=== PATIENT | female | born 1970 | race Caucasian/White ===

== ENCOUNTER → 2016-11-28 | Day surgery (SDC) | payer BC ==
[~2016-11-28] MED LIST: ALPRAZolam 0.25 MG TAB ONE; BACITRACIN OINT 1 EACH PACKET TOPICAL ONE; LIDOCAINE 1% INJ 10MG/ML (20 ML MDV) ONE; LIDOCAINE 1%-EPI 1:100,000 20 ML VIAL ONE; SODIUM BICARB 4% 5 ML VIAL (0.48 MEQ/ML) ONE
--- NOTE | 2016-11-28 14:26 | USB ---
EXAMINATION TYPE: US biopsy breast VAD LT, MG diagnostic mammo LT wo CAD DATE OF EXAM: 11/28/2016 2:13 PM CLINICAL HISTORY: R92.8 Abnormal Mammogram. Abnormal ultrasound. Palpable mass. TECHNIQUE: Ultrasound guided core biopsy of left breast with clip placement and follow-up two-view mammogram. COMPARISON: Outside mammogram and ultrasound November 16, 2016. FINDINGS: The procedure of ultrasound guided core biopsy was explained to the patient. Benefits, alternatives, and risks were discussed. An informed consent was then obtained. The patient was placed in supine positioning for imaging and for the procedure. Preprocedure imaging redemonstrated suspicious lobulated 2.8 x 2.4 x 2.3 cm heterogeneous hypoechoic solid mass at 2:00 position in the left breast. Scanning of axilla show some prominent but benign-appearing lymph nodes, no definitively abnormal lymph nodes were identified to warrant sampling. The overlying skin was prepped and draped in usual sterile fashion. Lidocaine buffered with bicarbonate was used as anesthetic into the skin. Lidocaine with epinephrine is used as anesthetic into the deeper tissue up to area of concern in the left breast. A avani was made with surgical scalpel. Under ultrasound guidance, a 12-gauge vacuum assisted biopsy gun device was used to obtain 4 core samples. Following this, a biopsy clip was left in lesion. The patient tolerated the procedure well without any immediate complication. The patient was kept in the radiology department for short stay after the procedure and then discharged home in stable condition. Postprocedure mammogram shows clip successfully deployed at area mammogram concern and palpable abnormality. IMPRESSION: Successful, uncomplicated ultrasound guided core biopsy of area of concern in the left breast, full pathology results to follow. High index of suspicion noted at time of procedure. Pathology Results: Malignant BREAST, LEFT, CORE BIOPSY: INVASIVE DUCTAL CARCINOMA. SEE SURGICAL PATHOLOGY CANCER CASE SUMMARY. Recommendation Surgical consult of the left breast. JOSÉ MIGUEL
== END ==
LOC: RADUSWWP 12:19
PROVIDERS: ATTEND Surgery
DX: D05.12 Intraductal carcinoma in situ of left breast (principal); R92.8 Other abnormal and inconclusive findings on diagnostic imaging of breast
CPT/HCPCS: 88305; 19083; G0206; A4648; J2001

== ENCOUNTER 2017-01-10 10:58 | Observation (INO) | payer BC ==
[2017-01-05 12:34] VITALS: BMI 29.2
[~2017-01-10 10:58] MED LIST changes: -ALPRAZolam 0.25 MG TAB ONE; +ALPRAZolam 0.5 MG TAB PO PRN; -BACITRACIN OINT 1 EACH PACKET TOPICAL ONE; +DEXAMETHASONE SOD PHOSPHATE 10 MG/ML 1 ML VIAL IV ONE; +HEPARIN SODIUM,PORCINE 5,000 UNIT/ML 1 ML VIAL SQ ONE; +HYDROmorphone 1 MG/ML 1 ML SYRINGE IVP PRN; -LIDOCAINE 1% INJ 10MG/ML (20 ML MDV) ONE; -LIDOCAINE 1%-EPI 1:100,000 20 ML VIAL ONE; +MIDAZOLAM 2 MG/2 ML VIAL IV PRN; +ONDANSETRON 4 MG/2 ML VIAL IVP ONE; +Pre Op ABX Message 1 EACH MISC MISCELLANE ONE; +SCOPOLAMINE 1.5MG/72HR PATCH TRANSDERM ONE; -SODIUM BICARB 4% 5 ML VIAL (0.48 MEQ/ML) ONE
[2017-01-10] MEDS ORDERED: LIDOCAINE 1% 20 ML VIAL (10MG/ML) FOR IV START INTRADERMA ONE (11:38)
[2017-01-10] MEDS: LACTATED RINGERS 1,000 ML IV SCH (11:45)
[2017-01-10] MEDS ORDERED: LIDOCAINE 1% INJ 10MG/ML (20 ML MDV) SQ ONE (12:07)
--- NOTE | 2017-01-10 12:48 | NM ---
EXAMINATION TYPE: NM sentinel node injection DATE OF EXAM: 01/10/2017 COMPARISON: NONE HISTORY: Breast cancer. TECHNIQUE AND FINDINGS: The procedure of sentinel lymph node injection was explained to the patient. The benefits, alternatives, and risks were discussed. An informed consent was then obtained. Overlying skin is cleaned with sterile alcohol. Lidocaine buffered with bicarbonate was used as anes thetic into the skin and subcutaneous tissue surrounding the nipple. Following this, 549 uCi Tc 99m Filtered Sulfur Colloid was injected into 4 equivalent doses at 12, 3, 6, and 9:00 position surroundi ng the left nipple intradermally. The injection sites were massaged by nuclear plant construction worker for 10 minutes after injection. T he patient tolerated the procedure well without any immediate complication. The patient was kept in the radiology department for short stay after the procedure and then taken to surgery for surgical pr ocedure what is presumed intraoperative gamma probe will be used for sentinel lymph node detection. IMPRESSION: Left breast radiotracer injection for sentinel node localization as above.
[2017-01-10] MEDS ORDERED: HEPARIN SODIUM,PORCINE 5,000 UNIT/ML 1 ML VIAL SQ ONE (17:07)
[2017-01-10] MEDS ORDERED: METHYLENE BLUE 50 MG/10 ML AMPUL MISCELLANE ONE (17:42)
[2017-01-10] MEDS ORDERED: ONDANSETRON 4 MG/2 ML VIAL ONE (17:48)
[2017-01-10] MEDS ORDERED: KETOROLAC 30 MG/ML 1 ML VIAL ONE (17:48)
[2017-01-10] MEDS ORDERED: fentaNYL (PF) 50 MCG/ML 2 ML AMP ONE (17:48)
[2017-01-10] MEDS ORDERED: LIDOCAINE 1% INJ 10MG/ML (20 ML MDV) ONE (17:48)
[2017-01-10] MEDS ORDERED: PROPOFOL 10 MG/ML 20 ML VIAL IV ONE (17:48)
[2017-01-10] MEDS ORDERED: MIDAZOLAM 2 MG/2 ML VIAL ONE (17:48)
[2017-01-10] MEDS ORDERED: HYDROmorphone (PF) 1 MG/ML ONE (17:48)
[2017-01-10] MEDS ORDERED: WATER IRRIGATION ONE ×2 (17:50)
[2017-01-10] MEDS ORDERED: DEXTROSE 5% IRRIGATION ONE ×2 (17:50)
[2017-01-10] MEDS ORDERED: METHYLENE BLUE IRRIGATION ONE ×2 (17:50)
[2017-01-10] MEDS ORDERED: METHYLENE BLUE 50 MG/10 ML AMPUL INJ ONE (18:23)
[2017-01-10] MEDS ORDERED: ONDANSETRON 4 MG/2 ML VIAL IVP PRN (20:16)
[2017-01-10] MEDS ORDERED: NALOXONE 0.4 MG/ML 1 ML VIAL IV PRN (20:16)
--- NOTE | 2017-01-10 20:16 | P.OP ---
Date of Procedure: 01/10/17 Preoperative Diagnosis: Left breast cancer Postoperative Diagnosis: Same Procedure(s) Performed: Methylene blue injection for axillary lymph node mapping, left breast lumpectomy , sentinel node biopsy, followed by axillary node dissection Implants: Anesthesia: RACHELA Surgeon: Didi Garrett Estimated Blood Loss (ml): 50 IV fluids (ml): 500 Pathology: other (Lumpectomy specimen, 3 sentinel nodes, axillary contents) Condition: stable Disposition: PACU Indications for Procedure: Left breast cancer Operative Findings: Firm mass left breast upper outer quadrant area Description of Procedure: Patient was taken to the operating room and following induction of general anesthesia the periareolar area was prepped using alcohol 5 mL of half-strength methylene blue was injected into the periareolar area and the breast was massaged. The breast and axilla were then prepped and draped in a sterile fashion. An axillary incision was made and carried down to the axillary tissue. The pectoralis minor muscle was identified and followed superiorly towards the axillary vein which time 3 axillary sentinel nodes were identified. These were blue and radioactive and sent to pathology. It was felt that these were suspicious and a completion axillary dissection was performed. Pectoralis minor muscle was followed superiorly towards the axillary vein and the tissues were swept inferiorly being careful to identify and preserve the thoracodorsal and long thoracic nerves. We assured that hemostasis was attained in the axilla. The dissection of the left for the lumpectomy was performed using the lighted retractors and developed pain in the anterior flap just below the skin. This was followed to the area of the needle and the then followed posteriorly to the pectoralis major muscle. The medial dissection was carried to a cavity where prior implant had been placed in the lateral dissection was contiguous with the axillary dissection. Superior and inferior dissection were performed well away from the area of palpable abnormality. After assured that hemostasis was attained the wound was well irrigated. Titanium clips were placed in the lumpectomy area. A Marv-Adams drain was placed. The deep tissues were closed using 3-0 Vicryl suture followed by closure of the skin with 4-0 Monocryl. The patient tolerated procedure in stable condition. All instrument and sponge counts were correct at the end of the case.
[2017-01-10] MEDS: DEXTROSE 5%-0.45% NACL 1,000 ML IV SCH (21:48)
[2017-01-10] MEDS: FAMOTIDINE 20 MG TAB PO SCH (21:57)
[2017-01-10] MEDS: HYDROmorphone 1 MG/ML 1 ML SYRINGE IV PRN (23:09)
[2017-01-10] MEDS: HEPARIN SODIUM,PORCINE 5,000 UNIT/ML 1 ML VIAL SQ SCH (23:09)
[2017-01-11] MEDS: HYDROmorphone 1 MG/ML 1 ML SYRINGE IV PRN ×5 (06:01→20:43)
[2017-01-11] MEDS: DEXTROSE 5%-0.45% NACL 1,000 ML IV SCH (06:02)
[2017-01-11] MEDS: LACTATED RINGERS 1,000 ML IV SCH (06:12)
[2017-01-11 06:52] LABS: Basophils % (A) 0 %; CH 32.3; CHCM 32.7; Eosinophils % (A) 0 %; HCT 39.4 % (34.0-46.0); HDW 2.29; Luc # (Auto) 0.14; Luc % (Auto) 2; Lymphocytes # (A) 0.8 k/uL (1.0-4.8); Lymphocytes % (A) 11 %; MCH 32.8 pg (25.0-35.0); MCV 99.2 fL (80.0-100.0); Mean Platelet Volume 7.5; Monocytes # (A) 0.4 k/uL (0-1.0); Monocytes % (A) 6 %; Neutrophils # (A) 5.7 k/uL (1.3-7.7); Neutrophils % (A) 81 %; RBC 3.97 m/uL (3.80-5.40)
--- NOTE | 2017-01-11 08:08 | MM ---
EXAMINATION TYPE: MG pre op needle loc LT DATE OF EXAM: 01/10/2017 COMPARISON: Previous mammogram dated 11/28/2016 CLINICAL HISTORY: Breast cancer. TECHNIQUE: Needle localization with wire placement and surgical excision of area of concern in the left breast. FINDINGS: The procedure of needle localization with wire placement and than surgical excision was explained to the patient. Benefits, alternatives, and risks were discussed. An informed consent was then obtained. The shortest pathway for procedure was chosen. Shortest pathway was medial to lateral approach. The overlying skin was prepped and draped in usual sterile fashion. 1% Xylocaine was used as anesthetic into the skin and subcutaneous tissue up to the level of area of concern. A 5 cm needle was used. It was placed via a medial to lateral approach under mammographic guidance. Subsequent 90 degrees mammogram show the needle to be in satisfactory position relative to the targeted area. At this point, wire was placed and the needle was withdrawn. The wire was fixed to patient's skin. Images were marked for surgeon. The patient tolerated the procedure well without any immediate complication. The patient was kept in the radiology department for short stay after the procedure and then taken to surgery for surgical excision. The biopsy clip and wire are identified in specimen mammogram. The patient was kept in hospital for short stay after the procedure and then discharged home in stable condition. IMPRESSION: Successful, uncomplicated needle localization with wire placement and surgical excision of a biopsy clip in the left breast, full pathology results to follow. Pathology Results: Malignant A. SENTINEL LYMPH NODE #1, BIOPSY: FIBROADIPOSE TISSUE WITH FOCAL CHRONIC INFLAMMATION, NEGATIVE FOR MALIGNANCY. CK7 AND SOUTH IMMUNOPEROXIDASE STAINS ARE CONFIRMATORY (CONTROLS APPROPRIATE). NO LYMPH NODE IS IDENTIFIED. B. SENTINEL LYMPH NODE #2, BIOPSY: LYMPH NODE POSITIVE FOR METASTASIS. SIZE OF LARGEST METASTATIC DEPOSIT MEASURES 6MM. C. SENTINEL LYMPH NODE #3, BIOPSY: TWO LYMPH NODES POSITIVE FOR METASTASIS. SIZE OF LARGEST METASTATIC DEPOSIT MEASURES 9MM. EXTRANODAL EXTENSION IS PRESENT. D. BREAST, LEFT, LUMPECTOMY: INVASIVE DUCTAL CARCINOMA INVOLVING THE ANTERIOR RESECTION MARGIN AND CLOSELY APPROACHING THE MEDIAL AND SUPERIOR MARGINS. SEE SURGICAL PATHOLOGY CANCER CASE SUMMARY. E. LEFT AXILLARY CONTENTS: FOUR LYMPH NODES, ONE POSITIVE FOR METASTASIS AND ONE NODE POSITIVE FOR ISOLATED TUMOR CELLS. Recommendation Appropriate oncologic management. MTDD
[2017-01-11] MEDS: HEPARIN SODIUM,PORCINE 5,000 UNIT/ML 1 ML VIAL SQ SCH ×2 (10:07→19:19)
[2017-01-11] MEDS: FAMOTIDINE 20 MG TAB PO SCH ×2 (10:07→21:59)
--- NOTE | 2017-01-11 11:38 | P.PN ---
Subjective 46 rolled female being seen and examined this morning. Patient is sitting up in bed taking a diet. Patient is postop January 10 methane blue injection for axillary mapping left breast lumpectomy, sentinel node biopsy followed by axillary node dissection with Marv-Adams drain placed nursing reports the patient Marv-Adams drain put out 120 mL with clots noted during the night. Currently the Marv-Adams drain has approximately 20 mL dark bloody drainage noted the hemoglobin this morning is 13. The dressing to the right axillary dry slight surgical tenderness noted lymph node sentinel biopsy path report is pending Objective - Vital Signs Vital signs: Vital Signs Temp 98.3 F 01/11/17 08:50 Pulse 101 H 01/11/17 08:50 Resp 16 01/11/17 08:50 BP 127/78 01/11/17 08:50 Pulse Ox 97 01/11/17 08:50 Intake & Output 01/10/17 01/11/17 01/11/17 18:59 06:59 18:59 Intake Total 900 200 Output Total 50 220 600 Balance 850 -20 -600 Weight 77.111 kg Intake: IV 900 100 Oral 100 Output: Drainage 120 Left Breast 120 Urine 100 600 Estimated Blood Loss 50 Other: Voiding Method Toilet Toilet - Exam Physical exam 46-year-old female sitting up in bed taking a diet pleasant cooperative oriented 3 states pain medication effective for pain control Chest right axillary dressing dry Marv-Adams drain in place Lungs essentially clear adequate air movement on room air Heart S1-S2 audible and regular no murmur noted Abdomen soft nontender reports no nausea vomiting no distention noted Extremities no edema noted - Labs CBC & Chem 7: 01/11/17 06:33 Labs: Abnormal Lab Results - Last 24 Hours (Table) 01/11/17 Range/Units 06:33 Lymphocytes # 0.8 L (1.0-4.8) k/uL Assessment and Plan Plan: Impression Firm mass left breast upper outer quadrant suspect due to left breast cancer Status post January 10 Left breast lumpectomy 3 sentinel nodes axillary biopsied path report pending Status post January 10 methane blue injection for axillary lymph node mapping, left breast lumpectomy, sentinel node biopsy followed by axillary node dissection for left breast cancer Plan repeat a hemoglobin now Pain control Postop surgical care Marv-Adams drained care as ordered Resume home meds as appropriate Further or conditions pending The above dictated assessment and findings were discussed with dr Caroline Maldonado Impression and the plan of care have been dictated as directed. Marguerite Galaviz nurse practitioner acting as a scribe for Melvi
[2017-01-11 13:05] LABS: Basophils % (A) 0 %; CH 32.5; CHCM 32.5; Eosinophils % (A) 0 %; HCT 38.3 % (34.0-46.0); HDW 2.28; HGB 12.4 gm/dL (11.4-16.0); Luc # (Auto) 0.19; Luc % (Auto) 3; Lymphocytes # (A) 0.9 k/uL (1.0-4.8); Lymphocytes % (A) 12 %; MCH 32.4 pg (25.0-35.0); MCHC 32.3 g/dL (31.0-37.0); MCV 100.4 fL (80.0-100.0); Mean Platelet Volume 7.6; Monocytes # (A) 0.4 k/uL (0-1.0); Monocytes % (A) 6 %; Neutrophils # (A) 5.9 k/uL (1.3-7.7); Neutrophils % (A) 80 %; RBC 3.82 m/uL (3.80-5.40); WBC 7.3 k/uL (3.8-10.6); WBC (Perox) 8.22
[2017-01-11] MEDS ORDERED: HYDROcodone/APAP 5-325MG 1 EACH TAB PO PRN (20:11)
[2017-01-11] MEDS: HYDROcodone/APAP 5-325MG 1 EACH TAB PO PRN (21:58)
[2017-01-12] MEDS: HYDROcodone/APAP 5-325MG 1 EACH TAB PO PRN (02:18)
[2017-01-12 02:20] VITALS: RESP 16
[2017-01-12] MEDS: HEPARIN SODIUM,PORCINE 5,000 UNIT/ML 1 ML VIAL SQ SCH ×2 (06:51→08:53)
[2017-01-12 07:42] VITALS: BP 124/82; PULSE 90; TEMP 97.7
[2017-01-12 08:44] LABS: Basophils % (A) 0 %; CH 32.5; CHCM 32.5; Eosinophils # (A) 0.1 k/uL (0-0.7); Eosinophils % (A) 2 %; HCT 38.5 % (34.0-46.0); HDW 2.36; HGB 12.3 gm/dL (11.4-16.0); Luc # (Auto) 0.22; Luc % (Auto) 4; Lymphocytes # (A) 1.4 k/uL (1.0-4.8); Lymphocytes % (A) 24 %; MCH 32.1 pg (25.0-35.0); MCHC 31.9 g/dL (31.0-37.0); MCV 100.5 fL (80.0-100.0); Mean Platelet Volume 8.1; Monocytes # (A) 0.4 k/uL (0-1.0); Monocytes % (A) 7 %; Neutrophils # (A) 3.7 k/uL (1.3-7.7); Neutrophils % (A) 63 %; RBC 3.83 m/uL (3.80-5.40); RDW 13.3 % (11.5-15.5); WBC 5.9 k/uL (3.8-10.6); WBC (Perox) 6.36
[2017-01-12] MEDS: FAMOTIDINE 20 MG TAB PO SCH (08:53)
[2017-01-12] MEDS ORDERED: VENLAFAXINE HCL 75 MG TAB PO SCH (09:00)
--- NOTE | 2017-01-12 10:51 | P.DS ---
Providers Date of admission: 01/11/17 20:07 Expected date of discharge: 01/12/17 Attending physician: Didi Garrett Primary care physician: Stated None Hospital Course: A 46-year-old female presented on elective basis to undergo left breast lumpectomy for left breast cancer. The procedure was done on January 10 methane blue injection for axillary lymph node mapping, left breast lumpectomy, sentinel node biopsy followed by axillary node dissection for left breast cancer with a Marv-Adams drain was inserted postop no complications. On the day of discharge the hemoglobin 12.3. I count 5.9. The Marv-Adams drain on the day of discharge serous drainage in the bulb. Pain medication effective for pain control. on January 12 patient was felt to be hemodynamically stable and appropriate proceed with a discharge to home Impression discharge diagnosis Firm mass left breast upper outer quadrant suspect due to left breast cancer Status post January 10 Left breast lumpectomy for left breast cancer 3 sentinel nodes axillary biopsied path report pending Status post January 10 methane blue injection for axillary lymph node mapping, left breast lumpectomy, sentinel node biopsy followed by axillary node dissection for left breast cancer The above dictated assessment and findings were discussed with dr Caroline Maldonado Impression and the plan of care have been dictated as directed. Marguerite Galaviz nurse practitioner acting as a scribe for Melvi Plan - Discharge Summary New Discharge Prescriptions: New HYDROcodone/APAP 5-325MG [[place] 5-325] 2 each PO Q6HR PRN #30 tab PRN Reason: Pain Scale 7 To 10 Continue Venlafaxine HCl [Effexor] 75 mg PO DAILY Discharge Medication List Venlafaxine HCl [Effexor] 75 mg PO DAILY 01/05/17 [History] HYDROcodone/APAP 5-325MG [[place] 5-325] 2 each PO Q6HR PRN #30 tab 01/12/17 [Rx] Follow up Appointment(s)/Referral(s): Didi Garrett MD [STAFF PHYSICIAN] - 01/19/17 12:15 pm (You have an appointment with DR Garrett On , January 19, 2017 at 12:15 pm.) Patient Instructions/Handouts: Breast Lumpectomy (DC) Activity/Diet/Wound Care/Special Instructions: No heavy lifting, no driving, no pools or hot tubs. Notify Dr Garrett if you develop a fever, chills, bloody or infected looking drainage from your MARTÍN drain or incision, or if have any questions or concerns. Take your pain medicine as needed. Activity as tolerated, rest as needed. Keep your dressing clean and dry, may change daily and as needed. Keep piter wrap snug over chest. Discharge Disposition: HOME SELF-CARE
== END 2017-01-12 12:50 | disposition home or self-care (01) ==
LOC: OR 10:58 → 6PED 20:13 → OR 01-11 20:06 → 6PED 01-11 20:07
PROVIDERS: ADMIT Surgery; ATTEND Surgery
DX: C50.912 Malignant neoplasm of unspecified site of left female breast (principal); C77.3 Secondary and unspecified malignant neoplasm of axilla and upper limb lymph nodes; G89.18 Other acute postprocedural pain; Z17.0 Estrogen receptor positive status [ER+]; F41.9 Anxiety disorder, unspecified; J01.00 Acute maxillary sinusitis, unspecified; Z79.899 Other long term (current) drug therapy; Z87.891 Personal history of nicotine dependence; Z90.49 Acquired absence of other specified parts of digestive tract; Z92.89 Personal history of other medical treatment
CPT/HCPCS: 19302; 38900; 96361; 96372 ×2; 96374; 96376; 81025; 88305; 85025 ×2; 88342; 88307; 88341; 76098; 19281; 38792; G0378 ×2; A9541; J2250; J1644 ×3; J1100; J2405; J2001; J3010; J1885; J1170 ×2; J2704; Q9968

== ENCOUNTER → 2017-02-04 | Outpatient (CLI) | payer BC ==
--- NOTE | 2017-02-05 10:29 | PE ---
EXAMINATION TYPE: PET CT fusion skull to thigh DATE OF EXAM: 02/04/2017 COMPARISON: NONE Prior PET/CT: None HISTORY: Breast cancer TECHNIQUE: Following the intravenous administration of 9.48 mCi of F-18 FDG, whole body images are p erformed from the skull base to the midthigh. Images are reviewed on the computer in the coronal, ax ial, and sagittal planes. Reconstructed rotating images are created on independent workstation and r eviewed on the computer. A localization and attenuation correction CT is performed in conjunction w ith the PET scan. DLP: 428.5 mGycm SCAN: Initial Blood glucose: 100 mg/dL Average Mediastinum SUV: 1.31 Average Liver SUV: 3.49 FINDINGS: NECK: No abnormal uptake THORAX: No intrathoracic abnormal uptake. There is mild uptake in the patient's left breast biopsy site. Greatest SUV value appears to be 4.7 ABDOMEN: No abnormal uptake PELVIS: No abnormal uptake OSSEOUS STRUCTURES: No abnormal uptake LOCALIZATION CT: The ascending thoracic aorta at the level the main pulmonary artery is 3.2 cm. The m ain pulmonary artery at the bifurcation is 2.2 cm. Postsurgical changes are within the left breast. L grayson windows appear clear. No enlarged mediastinal adenopathy is evident. No suspicious axillary adeno sedrick is evident. IUD is within the uterus. COMPARISON: None available IMPRESSION: 1. Uptake at the biopsy site can be postsurgical. SUV value is elevated, correlate with the pathology borders. 2. No suspicious changes suggest metastatic disease.
== END ==
LOC: RADPETMAIN 11:30
PROVIDERS: ATTEND Internal Medicine Hematology & Oncology
DX: C50.412 Malignant neoplasm of upper-outer quadrant of left female breast (principal)
CPT/HCPCS: 78815; A9552

== ENCOUNTER 2017-02-28 13:30 | Day surgery (SDC) | payer BC ==
[~2017-02-28 13:30] MED LIST changes: -ALPRAZolam 0.5 MG TAB PO PRN; -DEXAMETHASONE SOD PHOSPHATE 10 MG/ML 1 ML VIAL IV ONE; -HEPARIN SODIUM,PORCINE 5,000 UNIT/ML 1 ML VIAL SQ ONE; +LACTATED RINGERS 1,000 ML IV SCH; +LIDOCAINE 1% 20 ML VIAL (10MG/ML) FOR IV START INTRADERMA PRN; -MIDAZOLAM 2 MG/2 ML VIAL IV PRN; -ONDANSETRON 4 MG/2 ML VIAL IVP ONE; +ONDANSETRON 4 MG/2 ML VIAL IVP PRN; -Pre Op ABX Message 1 EACH MISC MISCELLANE ONE; -SCOPOLAMINE 1.5MG/72HR PATCH TRANSDERM ONE; +ceFAZolin 2 GM in SODIUM CHLORIDE 0.9% 100 ML IVPB ONE
[2017-02-28 14:54] VITALS: BP 129/91; PULSE 97; RESP 16; TEMP 97.7
== END 2017-02-28 15:19 | disposition home or self-care (01) ==
LOC: OR 13:30
PROVIDERS: ATTEND Surgery
DX: N61.1 Abscess of the breast and nipple (principal)

== ENCOUNTER 2017-03-03 06:57 | Day surgery (SDC) | payer BC ==
[2017-03-03] MEDS ORDERED: LACTATED RINGERS 1,000 ML IV ONE (07:33)
[2017-03-03] MEDS ORDERED: DEXAMETHASONE SOD PHOS (MDV) 100 MG/10 ML VIAL IVP ONE (08:04)
[2017-03-03] MEDS ORDERED: MIDAZOLAM 2 MG/2 ML VIAL ONE (08:22)
[2017-03-03] MEDS ORDERED: PROPOFOL 10 MG/ML 20 ML VIAL IV ONE (08:22)
[2017-03-03] MEDS ORDERED: fentaNYL (PF) 50 MCG/ML 2 ML AMP ONE (08:22)
[2017-03-03] MEDS ORDERED: KETOROLAC 30 MG/ML 1 ML VIAL ONE (08:22)
[2017-03-03] MEDS ORDERED: BUPIVACAIN-EPI 0.5%-1:200,000 30 ML VIAL SQ ONE ×2 (08:35)
[2017-03-03] MEDS ORDERED: HEPARIN SODIUM,PORCINE 100 UNIT/ML 5 ML VIAL IV ONE (08:36)
[2017-03-03] MEDS ORDERED: IOHEXOL 300 MG/ML 50 ML BOTTLE INJ ONE (08:59)
--- NOTE | 2017-03-03 09:41 | FL ---
Fluoroscopy HISTORY: Central line placement 58 seconds fluoroscopy time supplied to the referring clinician. 1 intraoperative C-arm images docum ent the procedure. See dictated report from general surgery.
[2017-03-03 09:44] VITALS: TEMP 97
--- NOTE | 2017-03-03 09:44 | P.OP ---
Date of Procedure: 03/03/17 Preoperative Diagnosis: Left breast cancer and need for chemotherapy Postoperative Diagnosis: Left breast cancer Procedure(s) Performed: Placement of right internal jugular 8 fr mediport with ultrasound guidance and fluroscopy Implants: Anesthesia: RACHELA Surgeon: Karine Oliveira Condition: stable Disposition: PACU Indications for Procedure: Operative Findings: 35 sec fluro performed and interpreted by me (Dr Oliveira) Description of Procedure: The patient was brought to the operating room and placed in supine position with both arms tucked. A footboard was placed. Cholrprep was used to prep the neck followed by application of sterile drapes and an Ioban dressing . A timeout was performed to verify correct patient and correct procedure. Patient was confirmed to receive perioperative IV antibiotics and VTE prophylaxis.An ultrasound was performed of the right neck to identify the carotid artery and internal jugular vein. The internal jugular vein was compressible and patent . Local anesthetic was infiltrated to create a field block. Seldinger technique was used and the internal jugular vein was accessed under direct ultrasound guidance. There was good backflow of dark venous blood. The guidewire was inserted and fluoroscopic images obtained to confirm the tip in SVC.The needle was removed followed by insertion of a dilator peel-away sheath. The catheter was then advanced into the right atrium under fluoroscopic guidance. Its position was confirmed. The inner cannula of the peel-away sheath was removed and catheter was gradually inserted. The peel-away sheath was gradually removed. Local anesthetic was infiltrated along the inferior aspect of the right clavicle. A 2.5 cm skin incision was made and dissection was carried up to the pectoralis major muscle. A pocket was created for the port. Using a armida a subcutaneous tunnel was created from that pocket to the counter incision in the neck and the catheter was pulled through and cut according to the length already determined by fluoroscopy. It was attached to the port. Fluoroscopy then confirmed its the placement of the tip in the appropriate position as well as good flow and return. The port was then hep- locked. Fluoroscopic image confirmed the tip of the catheter at the junction of SVC and right atrium. There was no kink, fold or torsion of the catheter and the port. The Burris needle was used to access the port and easy backflow was obtained. This was flushed with 10 mL of normal saline and 10 mL of Hep-Lock was inserted. The port was sutured in place with the help of Prolene sutures.The skin incision was closed in 2 layers using 3-0 Vicryl interrupted stitches and a running suture of 4-0 Monocryl. Counter incision in the neck was also closed using 4-0 Monocryl. Dermabond skin glue was applied followed by Telfa and Tegaderm dressing.The sponge, instrument and needle count were correct Patient tolerated the procedure well and was taken to post anesthesia care unit in stable condition Plan - Discharge Summary New Discharge Prescriptions: No Action Venlafaxine HCl [Effexor] 75 mg PO DAILY Multivitamins, Thera [Multivitamin (formulary)] 1 tab PO DAILY Discharge Medication List Venlafaxine HCl [Effexor] 75 mg PO DAILY 01/05/17 [History] Multivitamins, Thera [Multivitamin (formulary)] 1 tab PO DAILY 02/23/17 [History ]
--- NOTE | 2017-03-03 09:59 | XR ---
EXAMINATION TYPE: XR chest 1V confirm line [facility] DATE OF EXAM: 03/03/2017 COMPARISON: NONE HISTORY: 46-year-old female post line placement TECHNIQUE: Single frontal view of the chest is obtained. FINDINGS: Right anterior chest wall injection port with IJ access and catheter tip at the mid to lower SVC leve l. The superior loop at the level of the neck is excluded from view. Heart is normal size. Air within normal limits. Mild interstitial prominence is a chronic appearance. Strandy atelectasis at the left base. No pleural effusion. IMPRESSION: 1. Some strandy atelectasis. No acute cardiopulmonary process. 2. Right-sided chest port as above.
[2017-03-03 10:36] VITALS: RESP 18
[2017-03-03] MEDS ORDERED: traMADol 50 MG TAB PO ONE ×2 (10:54)
[2017-03-03 10:59] VITALS: BP 124/88; PULSE 92
== END 2017-03-03 11:32 | disposition home or self-care (01) ==
LOC: OR 06:57
PROVIDERS: ATTEND Surgery
DX: C50.912 Malignant neoplasm of unspecified site of left female breast (principal); Z87.891 Personal history of nicotine dependence; F41.9 Anxiety disorder, unspecified; F32.9 Major depressive disorder, single episode, unspecified; Z79.899 Other long term (current) drug therapy
CPT/HCPCS: 81025; 77001; 36561; 76937; C1788; J2250; J1642; J0690; J2405; J3010; J1885; J1100; J2704; J1644; Q9967

== ENCOUNTER → 2017-08-22 | Outpatient (CLI) | payer BC ==
[2017-08-22 14:14] LABS: Blood Urea Nitrogen 18 mg/dL (7-17)
--- NOTE | 2017-08-22 15:25 | CT ---
EXAMINATION TYPE: CT ChestAbdPelvis w con DATE OF EXAM: 08/22/2017 COMPARISON: PET/CT dated 02/04/2017 HISTORY: Patient complains of generalized weakness and muscle aches. History of left breast cancer. CT DLP: 1949 mGycm. Automated Exposure Control for Dose Reduction was Utilized. CONTRAST: CT scan of the thorax, abdomen and pelvis is performed with IV Contrast, patient injected with 100 mL of Omnipaque 300. FINDINGS: LUNGS: The lungs are grossly clear, there is no concerning parenchymal mass or nodule identified. Inna gular subsegmental atelectasis is incidentally noted as well as minimal right basilar subsegmental at electasis. There is no pleural effusion or pneumothorax seen. The tracheobronchial tree is patent. MEDIASTINUM: There are no greater than 1 cm hilar or mediastinal lymph nodes. No pericardial effusi on is seen. Right-sided Mediport is noted terminating in the cavoatrial junction. OTHER: There is a left breast large fluid collection surrounding surgical ramona. This does not demo nstrate air or high density. No complexity is seen. This measures approximately 9.0 x 4.7 cm. This is most compatible with a postsurgical seroma. LIVER/GB: There is a stable hepatic dome hypoattenuated lesion on series 3 image 35 measuring 7 mm, w hich is too small to accurately characterize. No other lesions are seen. The liver is diffusely hypoa ttenuated in of decreased enhancement in comparison to that of the spleen, limiting evaluation for he patic masses and most commonly related to hepatic steatosis. Gallbladder is surgically absent. PANCREAS: No significant abnormality is seen. No ductal dilatation. SPLEEN: No significant abnormality is seen. No splenomegaly. ADRENALS: No significant abnormality is seen. No nodule. KIDNEYS: Kidneys enhance symmetrically. No hydronephrosis. BOWEL: No significant abnormality is seen. Appendix is within normal limits measuring 6 mm tapering distally to a smaller caliber. GENITAL ORGANS: Left pelvic varicosities are noted from the gonadal vein. No thrombus is seen within the gonadal vein. LYMPH NODES: No greater than 1cm abdominal or pelvic lymph nodes are appreciated. OSSEOUS STRUCTURES: Punctate stable probable bone island is seen within the right femoral head. Nonsp ecific sclerotic lesion of the left iliac bone is present measuring 6 mm. Left iliac sclerosis anteri or to this on series 3 image 95 is also seen, somewhat symmetric to the right and more likely degener ative. OTHER: Mild nonspecific fat stranding is seen around the aorta and ureters without focal soft tissues mass to suggest retroperitoneal fibrosis. No ureteral deviation. This may relate to fluid overload. IMPRESSION: 1. No evidence of visceral or lymphatic metastasis within the chest, abdomen, or pelvis. 2. Indeterminate left iliac bone peripherally sclerotic lesion measuring 6 mm for which surveillance is recommended as this could be benign or less likely metastatic. 3. Left pelvic varicosities may relate to pelvic congestion syndrome in the appropriate clinical sett ing. No gonadal vein thrombosis is identified. 4. Large fluid collection surrounding the postsurgical site in the left breast, likely seroma. 5. 7 mm hepatic lesion that is too small to accurately characterize. This is very low density on live r window and favored to represent a cyst however surveillance is recommended.
== END | disposition home or self-care (01) ==
LOC: RADPROMAIN 13:03
PROVIDERS: ATTEND Radiology Radiation Oncology
DX: I86.2 Pelvic varices (principal); K76.89 Other specified diseases of liver; M89.28 Other disorders of bone development and growth, other site; C50.412 Malignant neoplasm of upper-outer quadrant of left female breast
CPT/HCPCS: 82565; 84520; 71260; 74177; 36415; Q9967

== ENCOUNTER 2017-08-24 13:52 | Inpatient (IN) | payer BC ==
[2017-08-24] MEDS ORDERED: SODIUM CHLORIDE 0.9% 1,000 ML IV STA ×2 (14:46→16:28)
[2017-08-24] MEDS ORDERED: SODIUM CHLORIDE 0.9% 500 ML IV STA (14:46)
[2017-08-24] MEDS ORDERED: MORPHINE SULFATE 5 MG/ML SYRINGE IV STA (14:48)
--- NOTE | 2017-08-24 15:14 | ED ---
General Adult HPI - General Chief complaint: Recheck/Abnormal Lab/Rx Stated complaint: Weakness Time Seen by Provider: 08/24/17 14:46 Source: patient, RN notes reviewed, old records reviewed Mode of arrival: wheelchair Limitations: no limitations - History of Present Illness Initial comments: This is a 46-year-old female to the ER for evaluation. This patient presents for evaluation regards to weakness. Not feeling well. Patient's family going through chemotherapy has continued to go and get weak. Patient has positive nausea positive vomiting no significant diarrhea no chest pain shortness breath or abdominal pain. Patient denies recent fever. - Related Data Home Medications Medication Instructions Recorded Confirmed Venlafaxine HCl [Effexor] 75 mg PO DAILY 01/05/17 08/24/17 Multivitamins, Thera [Multivitamin 1 tab PO DAILY 02/23/17 08/24/17 (formulary)] Acetaminophen Tab [Tylenol Tab] 1,000 mg PO Q6HR PRN 08/24/17 08/24/17 Cyclobenzaprine [Flexeril] 10 mg PO DAILY PRN 08/24/17 08/24/17 Ibuprofen [Motrin] 400 mg PO DAILY PRN 08/24/17 08/24/17 Omeprazole 40 mg PO DAILY 08/24/17 08/24/17 traMADol HCl [Ultram] 25 mg PO Q4HR PRN 08/24/17 08/24/17 Allergies Allergy/AdvReac Type Severity Reaction Status Date / Time No Known Allergies Allergy Verified 08/24/17 14:57 Review of Systems ROS Statement: Those systems with pertinent positive or pertinent negative responses have been documented in the HPI. ROS Other: All systems not noted in ROS Statement are negative. Past Medical History Past Medical History: Cancer Additional Past Medical History / Comment(s): L Breast CA History of Any Multi-Drug Resistant Organisms: None Reported Past Surgical History: Breast Surgery, Cholecystectomy, Tonsillectomy Additional Past Surgical History / Comment(s): Sinus surgery, Breast implants and removal, lumpectomy revision Past Anesthesia/Blood Transfusion Reactions: No Reported Reaction Past Psychological History: Anxiety Smoking Status: Never smoker Past Alcohol Use History: None Reported Past Drug Use History: None Reported - Past Family History Father Family Medical History: Cancer Additional Family Medical History / Comment(s): prostate CA General Exam Limitations: no limitations General appearance: alert, in no apparent distress Head exam: Present: atraumatic, normocephalic, normal inspection Eye exam: Present: normal appearance, PERRL, EOMI. Absent: scleral icterus, conjunctival injection, periorbital swelling ENT exam: Present: normal exam, mucous membranes moist Neck exam: Present: normal inspection. Absent: tenderness, meningismus, lymphadenopathy Respiratory exam: Present: normal lung sounds bilaterally. Absent: respiratory distress, wheezes, rales, rhonchi, stridor Cardiovascular Exam: Present: normal rhythm, tachycardia, normal heart sounds. Absent: systolic murmur, diastolic murmur, rubs, gallop, clicks GI/Abdominal exam: Present: soft, normal bowel sounds. Absent: distended, tenderness, guarding, rebound, rigid Extremities exam: Present: normal inspection, full ROM, normal capillary refill. Absent: tenderness, pedal edema, joint swelling, calf tenderness Back exam: Present: normal inspection Neurological exam: Present: alert, oriented X3, CN II-XII intact Psychiatric exam: Present: normal affect, normal mood Skin exam: Present: warm, dry, intact, normal color. Absent: rash Course Vital Signs 08/24/17 08/24/17 08/24/17 14:02 15:30 16:01 Temperature 98.7 F 98.5 F Pulse Rate 127 H 118 H Pulse Rate [ 118 H Apical] Respiratory 18 15 Rate Blood Pressure 140/94 136/88 O2 Sat by Pulse 99 100 Oximetry - Reevaluation(s) Reevaluation #1: 08/24/17 16:27 Patient has adequate pain control at this time, still having diffuse body aches and pains Medical Decision Making - Medical Decision Making 46 female DEL with bodyaches and pains, positive abdomen secondary to chemotherapy, patient will be admitted for rehydration, - Lab Data Result diagrams: 08/24/17 15:20 08/24/17 15:20 Lab Results 08/24/17 08/24/17 08/24/17 Range/Units 15:20 15:20 15:20 WBC 3.8 (3.8-10.6) k/uL RBC 4.36 (3.80-5.40) m/uL Hgb 13.4 (11.4-16.0) gm/dL Hct 42.8 (34.0-46.0) % MCV 98.4 (80.0-100.0) fL MCH 30.7 (25.0-35.0) pg MCHC 31.2 (31.0-37.0) g/dL RDW 15.0 (11.5-15.5) % Plt Count 192 (150-450) k/uL Neutrophils % 77 % Lymphocytes % 8 % Monocytes % 8 % Eosinophils % 3 % Basophils % 0 % Neutrophils # 2.9 (1.3-7.7) k/uL Lymphocytes # 0.3 L (1.0-4.8) k/uL Monocytes # 0.3 (0-1.0) k/uL Eosinophils # 0.1 (0-0.7) k/uL Basophils # 0.0 (0-0.2) k/uL PT (9.0-12.0) sec INR (<1.2) APTT (22.0-30.0) sec Sodium 141 (137-145) mmol/L Potassium 4.0 (3.5-5.1) mmol/L Chloride 105 (98-107) mmol/L Carbon Dioxide 28 (22-30) mmol/L Anion Gap 8 mmol/L BUN 21 H (7-17) mg/dL Creatinine 0.42 L (0.52-1.04) mg/dL Est GFR (MDRD) Af Amer >60 (>60 ml/min/1.73 sqM) Est GFR (MDRD) Non-Af >60 (>60 ml/min/1.73 sqM) Glucose 117 H (74-99) mg/dL Plasma Lactic Acid Gilbert (0.7-2.0) mmol/L Calcium 9.1 (8.4-10.2) mg/dL Phosphorus 4.3 (2.5-4.5) mg/dL Magnesium 2.0 (1.6-2.3) mg/dL Total Bilirubin 0.2 (0.2-1.3) mg/dL AST 111 H (14-36) U/L ALT 89 H (9-52) U/L Alkaline Phosphatase 75 (38-126) U/L Total Creatine Kinase 1597 H (30-135) U/L CK-MB (CK-2) 6.8 H* (0.0-2.4) ng/mL CK-MB (CK-2) Rel Index 0.4 Troponin I 0.056 H* (0.000-0.034) ng/mL Total Protein 5.6 L (6.3-8.2) g/dL Albumin 3.2 L (3.5-5.0) g/dL Influenza Type A RNA (Not Detectd) Influenza Type B (PCR) (Not Detectd) 08/24/17 08/24/17 08/24/17 Range/Units 15:20 15:20 15:20 WBC (3.8-10.6) k/uL RBC (3.80-5.40) m/uL Hgb (11.4-16.0) gm/dL Hct (34.0-46.0) % MCV (80.0-100.0) fL MCH (25.0-35.0) pg MCHC (31.0-37.0) g/dL RDW (11.5-15.5) % Plt Count (150-450) k/uL Neutrophils % % Lymphocytes % % Monocytes % % Eosinophils % % Basophils % % Neutrophils # (1.3-7.7) k/uL Lymphocytes # (1.0-4.8) k/uL Monocytes # (0-1.0) k/uL Eosinophils # (0-0.7) k/uL Basophils # (0-0.2) k/uL PT 9.5 (9.0-12.0) sec INR 1.0 (<1.2) APTT 36.7 H (22.0-30.0) sec Sodium (137-145) mmol/L Potassium (3.5-5.1) mmol/L Chloride (98-107) mmol/L Carbon Dioxide (22-30) mmol/L Anion Gap mmol/L BUN (7-17) mg/dL Creatinine (0.52-1.04) mg/dL Est GFR (MDRD) Af Amer (>60 ml/min/1.73 sqM) Est GFR (MDRD) Non-Af (>60 ml/min/1.73 sqM) Glucose (74-99) mg/dL Plasma Lactic Acid Gilbert 1.3 (0.7-2.0) mmol/L Calcium (8.4-10.2) mg/dL Phosphorus (2.5-4.5) mg/dL Magnesium (1.6-2.3) mg/dL Total Bilirubin (0.2-1.3) mg/dL AST (14-36) U/L ALT (9-52) U/L Alkaline Phosphatase (38-126) U/L Total Creatine Kinase (30-135) U/L CK-MB (CK-2) (0.0-2.4) ng/mL CK-MB (CK-2) Rel Index Troponin I (0.000-0.034) ng/mL Total Protein (6.3-8.2) g/dL Albumin (3.5-5.0) g/dL Influenza Type A RNA Not Detected (Not Detectd) Influenza Type B (PCR) Not Detected (Not Detectd) - Radiology Data Radiology results: report reviewed (Chest x-rays negative), image reviewed Disposition Clinical Impression: Rhabdomyolysis, Dehydration Disposition: ADMITTED IP TO THIS [facility] Condition: Fair Referrals: Pete Mullins DO [Primary Care Provider] - 1-2 days
[2017-08-24 15:43] LABS: Basophils % (A) 0 %; Eosinophils # (A) 0.1 k/uL (0-0.7); Eosinophils % (A) 3 %; HCT 42.8 % (34.0-46.0); HGB 13.4 gm/dL (11.4-16.0); Lymphocytes # (A) 0.3 k/uL (1.0-4.8); Lymphocytes % (A) 8 %; MCH 30.7 pg (25.0-35.0); MCHC 31.2 g/dL (31.0-37.0); MCV 98.4 fL (80.0-100.0); Monocytes # (A) 0.3 k/uL (0-1.0); Monocytes % (A) 8 %; Neutrophils # (A) 2.9 k/uL (1.3-7.7); Neutrophils % (A) 77 %; Platelet Count 192 k/uL (150-450); RBC 4.36 m/uL (3.80-5.40); WBC 3.8 k/uL (3.8-10.6)
[2017-08-24 15:51] LABS: ALT 89 U/L (9-52); AST 111 U/L (14-36); Albumin 3.2 g/dL (3.5-5.0); Alkaline Phosphatase 75 U/L (38-126); Anion Gap 8 mmol/L; Blood Urea Nitrogen 21 mg/dL (7-17); Calcium 9.1 mg/dL (8.4-10.2); Carbon Dioxide 28 mmol/L (22-30); Chloride 105 mmol/L (98-107); Glucose 117 mg/dL (74-99); Phosphorus 4.3 mg/dL (2.5-4.5); Sodium 141 mmol/L (137-145); Total Bilirubin 0.2 mg/dL (0.2-1.3); Total Protein 5.6 g/dL (6.3-8.2)
[2017-08-24 15:57] LABS: Partial Thromboplastin Time 36.7 sec (22.0-30.0); Prothrombin Time 9.5 sec (9.0-12.0)
[2017-08-24 16:15] LABS: Creatine Kinase MB 6.8 ng/mL (0.0-2.4); Troponin I 0.056 ng/mL (0.000-0.034)
--- NOTE | 2017-08-24 16:27 | XR ---
EXAMINATION TYPE: XR chest 2V DATE OF EXAM: 08/24/2017 COMPARISON: 03/03/2017 HISTORY: Chest pain TECHNIQUE: Frontal and lateral views of the chest are obtained. FINDINGS: There is no focal air space opacity. Right-sided MediPort catheter unchanged in position. No evidence for pneumothorax. No pleural effusion. The cardiac silhouette size is within normal limits. The osseous structures are grossly intact. IMPRESSION: 1. No acute cardiopulmonary process.
[2017-08-24] MEDS ORDERED: MORPHINE SULFATE 2 MG/ML SYRINGE IVP PRN (16:28)
[2017-08-24] MEDS ORDERED: SODIUM CHLORIDE 0.9% 1,000 ML IV ONE (16:28)
[2017-08-24] MEDS: SODIUM CHLORIDE 0.9% 1,000 ML IV STA ×2 (16:51→18:25)
[2017-08-24] MEDS ORDERED: ACETAMINOPHEN TAB 500 MG TAB PO PRN (18:01)
[2017-08-24] MEDS ORDERED: IBUPROFEN 400 MG TAB PO PRN (18:01)
[2017-08-24] MEDS ORDERED: CYCLOBENZAPRINE 10 MG TAB PO PRN (18:01)
--- NOTE | 2017-08-24 21:35 | HP ---
HISTORY AND PHYSICAL DATE OF ADMISSION: 08/24/2017 PRESENTING COMPLAINT: Muscle weakness. HISTORY OF PRESENTING COMPLAINT: This is a very pleasant 46-year-old patient of Dr. Mullins. The patient was diagnosed with breast cancer back in October of last year. She was seen by oncologist Dr. Gan. Patient did get 8 cycles of chemotherapy and is now getting radiation treatment by Dr. Mendez at the [facility]. The patient also had a lumpectomy carried out by Dr. Yulia Garrett and then there was some suggestion of the margin being removed; and patient probably decided against that. The patient now presents with 2 to 3 weeks of increasing muscle weakness, achiness in the muscles, more so in the proximal muscles, finding it difficult to get up and sit down; also trouble lifting her arms. The patient has also noticed a rash on the face and in the V of the neck. Also has some facial swelling, feels easily tired and short of breath. Admitted for the same. REVIEW OF SYSTEMS: CONSTITUTIONAL: Tired. HEENT: As above. RESPIRATORY: As above. CARDIOVASCULAR: As above. GASTROINTESTINAL: None. GENITOURINARY: None. MUSCULOSKELETAL: As above. DERMATOLOGICAL: As above. LYMPHATICS: None. PSYCHIATRY: None. NEUROLOGICAL: Some pain in the fingers. PAST MEDICAL HISTORY: 1. Left breast cancer treated with chemo and radiation. 2. GERD. PAST SURGICAL HISTORY: 1. Breast surgery. 2. Cholecystectomy. 3. Tonsillectomy. 4. Sinus surgery. 5. Breast implants placed and removed. 6. Lumpectomy revision. PAST PSYCH HISTORY: Anxiety. SOCIAL HISTORY: Does not smoke or drink alcohol. Lives with her son. FAMILY HISTORY: Prostate cancer. HOME MEDICATIONS: 1. Ultram 25 mg q.4 p.r.n. 2. Effexor 75 mg p.o. daily. 3. Omeprazole 40 mg daily. 4. Multivitamin tablet p.o. daily. 5. Motrin 400 mg daily p.r.n. 6. Flexeril 10 mg p.o. daily p.r.n. 7. Tylenol 1000 mg p.o. q.6 p.r.n. ALLERGIES: NONE. PHYSICAL EXAMINATION: Temperature 97.4, pulse 117, respiration 16, blood pressure 122/89, pulse ox 99% on 2 L. GENERAL APPEARANCE: Well built; BMI 30.9. Lying in bed. HEENT: Patient has slight facial edema and a rash that extends over both the cheeks and the surrounding areas. Some telangiectasia and some rash in the V part of the neck. NECK: JVD not raised. Mass not palpable. RESPIRATORY: Effort normal. LUNGS: Fair air entry. CARDIOVASCULAR: First and second sounds normal. Minimal edema. ABDOMEN: Soft, nontender. Liver and spleen not palpable. LYMPHATIC: No lymph node palpable in neck or axillae. PSYCHIATRY: Alert and oriented x3. Mood and affect normal. NEUROLOGICAL: Pupils equal. Cranial nerves grossly intact. Patient has proximal muscle weakness when raising her arms and legs. INVESTIGATIONS: White count 3.8, hemoglobin 13.4, potassium 4.0, BUN 21, creatinine 0.42. CPK of 1597, CK-MB 6.8, troponin I 0.056. Influenza negative. Chest x-ray: Nil acute reported. ASSESSMENT: 1. This is a patient who presents with proximal muscle weakness for 2 or 3 weeks with difficulty standing up, getting down, some muscle achiness. Also she has a rash on the face and in the V of the neck. 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 Muscle biopsy is the most accurate testing, but supportive testing could be done with either MRI or an EMG. 2. Obesity with body mass index 30.9. 3. Gastroesophageal reflux disease. 4. Troponin leak, probably from hemodynamic mismatch. The patient does not have any cardiac symptoms. It is possible patient may have an element of myocarditis. PLAN: At this point we will go ahead and order a muscle biopsy. We will hold off steroids until the muscle biopsy is done. Will order a 2-D echocardiogram. Consultation with Dr. Gan from Oncology will be done and with General Surgery for the muscle biopsy. Care was discussed with the patient. Recheck labs in the morning. MMODL / IJN: [id number] /
[2017-08-25 00:57] LABS: Appearance,Urine Clear (Clear); Bilirubin,Urine Negative (Negative); Blood,Urine Negative (Negative); Color,Urine Light Yellow; Glucose,Urine (UA) Negative (Negative); Ketones,Urine Negative (Negative); Leukocyte Esterase,Urine Negative (Negative); Nitrite,Urine Negative (Negative); PH, Urine 6.5 (5.0-8.0); Protein,Urine Negative (Negative); Specific Gravity,Urine 1.014 (1.001-1.035); Urobilinogen,Urine <2.0 mg/dL (<2.0)
[2017-08-25] MEDS: traMADol 50 MG TAB PO PRN ×3 (01:48→17:43)
[2017-08-25] MEDS: VENLAFAXINE HCL ER 75 MG CAP PO SCH (08:45)
[2017-08-25] MEDS: PANTOPRAZOLE 40 MG TABLET PO SCH (08:45)
[2017-08-25] MEDS ORDERED: ENOXAPARIN 40 MG/0.4 ML SYRINGE SQ SCH (09:00)
--- NOTE | 2017-08-25 10:32 | P.PN ---
Progress Note - Text Progress Note Date: 08/25/17 Patient examined. Please Marguerite Galaviz's note for detailed consult. Plan for thigh muscle biopsy. Pathology department does not have kit for muscle biopsy . Hence, surgery cancelled for today. She will scheduled for surgery on Monday at [facility]. Discussed plan with and Elvia .
--- NOTE | 2017-08-25 10:32 | ECHOF ---
Referral Reason:trop leak MEASUREMENTS -------- HEIGHT: 162.6 cm WEIGHT: 81.7 kg BP: 150/88 RVIDd: 2.0 cm (< 3.3) IVSd: 0.9 cm (0.6 - 1.1) LVIDd: 3.8 cm (3.9 - 5.3) LVPWd: 0.9 cm (0.6 - 1.1) IVSs: 1.0 cm LVIDs: 3.5 cm LVPWs: 0.9 cm LA Diam: 2.3 cm (2.7 - 3.8) Ao Diam: 2.6 cm (2.0 - 3.7) AV Cusp: 1.9 cm (1.5 - 2.6) LA Diam: 2.3 cm (2.7 - 3.8) MV EXCURSION: 18.612 mm (> 18.000) MV EF SLOPE: 164 mm/s (70 - 150) EPSS: 0.8 cm MV E Emmett: 0.30 m/s MV DecT: 241 ms MV A Emmett: 0.88 m/s MV E/A Ratio: 0.34 RAP: 5.00 mmHg RVSP: 11.42 mmHg FINDINGS -------- Sinus rhythm. This was a technically good study. LV size, wall thickness and systolic function are normal, with an EF greater than 55%. The right ventricle is normal in size. The left atrial size is normal. The right atrial size is normal. The aortic valve is trileaflet, and appears structurally normal. No aortic stenosis or regurgitation. Mild mitral regurgitation is present. Mild tricuspid regurgitation present. There is no evidence of pulmonary hypertension. The right v entricular systolic pressure, as measured by Doppler, is 11.42mmHg. Trace/mild (physiologic) pulmonic regurgitation. The aortic root size is normal. There is no pericardial effusion. CONCLUSIONS -------- 1. LV size, wall thickness and systolic function are normal, with an EF greater than 55%. 2. The aortic valve is trileaflet, and appears structurally normal. No aortic stenosis or regurgitati on. 3. Mild mitral regurgitation is present. 4. Mild tricuspid regurgitation present. 5. There is no evidence of pulmonary hypertension. 6. The right ventricular systolic pressure, as measured by Doppler, is 11.42mmHg. 7. Trace/mild (physiologic) pulmonic regurgitation. 8. The aortic root size is normal. 9. There is no pericardial effusion. GAS LINE INSTALLER: Grace Jones RDCS
[2017-08-25] MEDS: METOPROLOL TARTRATE 12.5 MG TAB PO SCH ×2 (10:38→21:07)
--- NOTE | 2017-08-25 10:48 | CONS ---
CONSULTATION CHIEF COMPLAINT: Elevated troponin. Yessenia is a 46-year-old lady with history of carcinoma of the left breast, status post surgery, status post chemotherapy that ended in June of last year who is currently receiving radiation therapy, is admitted to hospital with progressively worsening weakness and muscle pain. She primarily has discomfort and weakness involving her proximal lower extremity muscle groups. She does not have chest pain, difficulty in breathing, palpitations, dizziness or syncope. Her labs showed that the CPK is elevated at 1,597. AST, ALT are elevated. The troponin is 0.056. She does not have any evidence of renal insufficiency. Cardiology had been consulted because of elevated troponin. Patient's muscle weakness, fatigue and tiredness actually started even before the radiation therapy got started and have gotten progressively worse. These symptoms started around Elvis-time. EKG shows sinus rhythm with sinus tachycardia. An echocardiogram on her shows normal left ventricular size, wall motion and systolic function. I do not believe patient's elevated troponin is related to myocarditis. It is more likely that the elevated CPK and troponin are not related to the proximal myopathy that she has, probably related to the chemotherapy that she received recently and could be exacerbated by the radiation therapy too. I am going to obtain another set of troponin this morning and if that is not significantly more elevated than the current one, she does not require any further cardiac workup at this time. Given patient's sinus tachycardia, I am going to start her on a small dose of a beta kalani for symptomatic deviation. PAST MEDICAL HISTORY: Significant for CA breast, status post chemo and radiation therapy. MEDICATIONS: At home include Flexeril, Tylenol, Motrin, omeprazole, Effexor and Ultram. ALLERGIES: There are no known drug allergies. FAMILY HISTORY: Negative for premature coronary artery disease. Her mother had hypertension. SOCIAL HISTORY: Negative for smoking, EtOH abuse, or drug abuse. REVIEW OF SYSTEMS: HEENT is unremarkable. CARDIAC: As described above. RESPIRATORY: Negative. GI: Negative. GENITOURINARY: Negative. ALLERGY/IMMUNOLOGY: Negative. SKIN: Negative. MUSCULOSKELETAL: Significant for muscle aches, weakness and tiredness and fatigue. PSYCHOSOCIAL: Negative. DERM: Negative. ENDOCRINE: Negative. HEMATOLOGICAL: Negative. ONCOLOGICAL: Significant for CA breast. PHYSICAL EXAM: Heart rate is around 115 beats per minute. Blood pressure is 120/70, respiratory rate is 18. Chest exam reveals good air entry bilaterally. Heart exam reveals first and second heart sounds. No gallop. No murmur. No rub. Abdomen is soft, nontender. Exam of extremities did not reveal any edema. Peripheral pulses are felt. POSTPARTUM NURSE exam did not reveal focal neurological deficits. She has tenderness involving the proximal lower extremity muscles, primarily both the thigh areas, the calf muscles there is no tenderness. EKG shows sinus tachycardia. LABS: Have been reviewed. ASSESSMENT: 1. CPK elevation secondary to myopathy, probably related to chemotherapy and exacerbated by the radiation therapy. 2. Troponin elevation of unclear clinical significance. Patient does not have any evidence of myocarditis. She has sinus tachycardia, but I am not seeing any ST-T wave changes on the EKG. The echocardiogram does not show LV dysfunction or wall motion abnormalities. I am going to get another set of troponin and start her on a small dose of beta kalani. Thank you for giving us the privilege in participating with this pleasant lady. MMNAZANINL / IJN: [id number] /
[2017-08-25] MEDS: MULTIVITAMINS, THERA 1 EACH TAB PO SCH (12:36)
[2017-08-25 13:07] VITALS: BMI 30.9
--- NOTE | 2017-08-25 13:55 | P.GSCN ---
History of Present Illness Consult date: 08/25/17 Reason for Consult: Muscle thigh biopsy History of present illness: Pleasant 46-year-old female being seen by surgical service at the request of the attending for a biopsy from thigh muscle as part of a workup for a patient who developed progressive worsening muscle pain with weakness. Patient is status post January 12 2017 left breast lumpectomy for left breast cancer has been followed by oncology and has received chemotherapy 8 cycles. Is currently receiving radiation treatment by Dr. guzman at [facility] Patient states that over the last several weeks has had increased muscle weakness achiness difficult to ambulate. Has had trouble lifting her arms. Easily fatigued and short of breath CPK was elevated 1597 subsequently the patient has been admitted to the surgical consultation obtained requesting biopsies from the thigh muscle surgery was Scheduled today but needed to be canceled as the pathology department did not have the kit for the muscle biopsy. Patient is to be scheduled for this surgery to be done Monday next week at [facility] seen by cardiology for mildly elevated troponins who do not believe the elevated troponins relate to myocarditis. They feel that the elevated CPK and troponin likely related to chemotherapy in which the patient has received could be exacerbated by the radiation treatment as part of workup cardiology did order a echocardiogram done it showed left ventricular systolic function normal with an EF greater than 55% no evidence of pulmonary hypertension. She was placed on IV hydration this morning is stating there is a slight improvement in the muscle aching but the aching persist is able to ambulate from the bed to the bathroom with less generalized weakness Past medical history left breast cancer, esophageal reflux disease. Past surgical history Left lumpectomy, cholecystectomy, tonsillectomy, revision lumpectomy, breast implants placed and removed Review of Systems Essentially unremarkable except as mentioned in the present illness Past Medical History Past Medical History: Cancer Additional Past Medical History / Comment(s): left breast cancer had sx and -17 completed her 8th and last chemo tx."heartburn during chemo", anxiety. History of Any Multi-Drug Resistant Organisms: None Reported Past Surgical History: Breast Surgery, Cholecystectomy, Tonsillectomy Additional Past Surgical History / Comment(s): Sinus surgery, Breast implants and removal years ago. january 2017 dx w/ lt breast cancer-had lumpectomy,sentinal lymph node bx axillary node dissection. rt upper chest mediport place. then 07/23 had. lumpectomy revision"took more tissue and 1 lymph node" Past Anesthesia/Blood Transfusion Reactions: No Reported Reaction Smoking Status: Former smoker - Past Family History Father Family Medical History: Cancer Additional Family Medical History / Comment(s): prostate CA Medications and Allergies Home Medications Medication Instructions Recorded Confirmed Type Venlafaxine HCl [Effexor] 75 mg PO DAILY 01/05/17 08/24/17 History Multivitamins, Thera [Multivitamin 1 tab PO DAILY 02/23/17 08/24/17 History (formulary)] Acetaminophen Tab [Tylenol Tab] 1,000 mg PO Q6HR PRN 08/24/17 08/24/17 History Cyclobenzaprine [Flexeril] 10 mg PO DAILY PRN 08/24/17 08/24/17 History Ibuprofen [Motrin] 400 mg PO DAILY PRN 08/24/17 08/24/17 History Omeprazole 40 mg PO DAILY 08/24/17 08/24/17 History traMADol HCl [Ultram] 25 mg PO Q4HR PRN 08/24/17 08/24/17 History Allergies Allergy/AdvReac Type Severity Reaction Status Date / Time No Known Allergies Allergy Verified 08/24/17 14:57 Surgical - Exam Vital Signs Temp Pulse Resp BP Pulse Ox 98.7 F 127 H 18 140/94 99 08/24/17 14:02 08/24/17 14:02 08/24/17 14:02 08/24/17 14:02 08/24/17 14:02 GENERAL APPEARANCE: 46-year-old female patient is alert, oriented, 3 in no acute distress. VITAL SIGNS: HEENT: Head is normocephalic and atraumatic. Pupils are equal and reactive. The nares are patent. Oropharynx is clear without lesions. Skin rash noted on the cheeks NECK: Supple without lymphadenopathy. Traches midline. Chest MediPort in place no redness at site right anterior chest wall HEART: S1, S2. Regular rate and rhythm. No murmur noted monitor sinus tach heart rate 110s LUNGS: No crackles or wheezes are heard. ABDOMEN: Soft, nontender, nondistended with good bowel sounds. No peritoneal signs. No palpable organomegaly or masses. EXTREMITIES: Trace pedal edema . Radial and pedal pulses are 2/4 bilaterally. Tenderness noted to the bilateral thigh areas. No calf tenderness. NEUROLOGICAL: No focal deficits. Strength and sensation are grossly intact. Results - Labs 08/28/17 07:10 08/28/17 07:10 Abnormal Lab Results - Last 24 Hours (Table) 08/24/17 08/24/17 08/24/17 Range/Units 15:20 15:20 15:20 Lymphocytes # 0.3 L (1.0-4.8) k/uL APTT (22.0-30.0) sec BUN 21 H (7-17) mg/dL Creatinine 0.42 L (0.52-1.04) mg/dL Glucose 117 H (74-99) mg/dL AST 111 H (14-36) U/L ALT 89 H (9-52) U/L Creatine Kinase (30-135) U/L Total Creatine Kinase 1597 H (30-135) U/L CK-MB (CK-2) 6.8 H* (0.0-2.4) ng/mL Troponin I 0.056 H* (0.000-0.034) ng/mL Total Protein 5.6 L (6.3-8.2) g/dL Albumin 3.2 L (3.5-5.0) g/dL 08/24/17 08/25/17 08/25/17 Range/Units 15:20 10:20 10:20 Lymphocytes # (1.0-4.8) k/uL APTT 36.7 H (22.0-30.0) sec BUN (7-17) mg/dL Creatinine (0.52-1.04) mg/dL Glucose (74-99) mg/dL AST (14-36) U/L ALT (9-52) U/L Creatine Kinase 1332 H (30-135) U/L Total Creatine Kinase (30-135) U/L CK-MB (CK-2) (0.0-2.4) ng/mL Troponin I 0.059 H* (0.000-0.034) ng/mL Total Protein (6.3-8.2) g/dL Albumin (3.5-5.0) g/dL Microbiology - Last 24 Hours (Table) 08/25/17 00:50 Urine Culture - Preliminary Urine,Voided Diabetes panel 08/24/17 Range/Units 15:20 Sodium 141 (137-145) mmol/L Potassium 4.0 (3.5-5.1) mmol/L Chloride 105 (98-107) mmol/L Carbon Dioxide 28 (22-30) mmol/L BUN 21 H (7-17) mg/dL Creatinine 0.42 L (0.52-1.04) mg/dL Glucose 117 H (74-99) mg/dL Calcium 9.1 (8.4-10.2) mg/dL AST 111 H (14-36) U/L ALT 89 H (9-52) U/L Alkaline Phosphatase 75 (38-126) U/L Total Protein 5.6 L (6.3-8.2) g/dL Albumin 3.2 L (3.5-5.0) g/dL Calcium panel 08/24/17 Range/Units 15:20 Calcium 9.1 (8.4-10.2) mg/dL Phosphorus 4.3 (2.5-4.5) mg/dL Albumin 3.2 L (3.5-5.0) g/dL Pituitary panel 08/24/17 Range/Units 15:20 Sodium 141 (137-145) mmol/L Potassium 4.0 (3.5-5.1) mmol/L Chloride 105 (98-107) mmol/L Carbon Dioxide 28 (22-30) mmol/L BUN 21 H (7-17) mg/dL Creatinine 0.42 L (0.52-1.04) mg/dL Glucose 117 H (74-99) mg/dL Calcium 9.1 (8.4-10.2) mg/dL Adrenal panel 08/24/17 Range/Units 15:20 Sodium 141 (137-145) mmol/L Potassium 4.0 (3.5-5.1) mmol/L Chloride 105 (98-107) mmol/L Carbon Dioxide 28 (22-30) mmol/L BUN 21 H (7-17) mg/dL Creatinine 0.42 L (0.52-1.04) mg/dL Glucose 117 H (74-99) mg/dL Calcium 9.1 (8.4-10.2) mg/dL Total Bilirubin 0.2 (0.2-1.3) mg/dL AST 111 H (14-36) U/L ALT 89 H (9-52) U/L Alkaline Phosphatase 75 (38-126) U/L Total Protein 5.6 L (6.3-8.2) g/dL Albumin 3.2 L (3.5-5.0) g/dL Assessment and Plan Assessment: Impression Present on admission elevated CPK likely due to myopathy related to chemo therapy exacerbated by radiation treatment Diagnosed breast cancer left breast January 2017 Present on admission mildly elevated troponin no evidence of acute coronary syndrome unclear clinical significance with no evidence of myocarditis Present on admission sinus tachycardia heart rate 110s Echocardiogram shows normal LV function greater than EF 55 Plan Surgery was canceled for the thigh muscle biopsy today due to pathology department not having an availability of a kit for the biopsy to be done this will be rescheduled on Monday Clyde Mello discussed with patient verbalized understanding Will sign off follow patient in the outpatient setting in the follow-up visit on Monday next week for the thigh muscle biopsy to be done Surgical consultation note dictated for Dr. pimentel The above impression and plan of care have been discussed and directed by signing physician. Marguerite Galaviz nurse practitioner acting as scribe for signing physician.
[2017-08-25] MEDS ORDERED: RX INFO: IV CONTRAST WAS GIVEN 1 EACH MISC MISCELLANE PRN (17:00)
[2017-08-25] MEDS ORDERED: IOHEXOL 350 MG/ML 25 ML BOTTLE (ORAL USE) PO PRN ×2 (17:00→17:17)
--- NOTE | 2017-08-25 17:00 | P.CONS ---
History of Present Illness - Reason for Consult Consult date: 08/25/17 - History of Present Illness Ms Miller is a pleasant premenopausal WF, who noted a mass in the UOQ of her left breast, in 09/23. She had a mammogram on 11/16/16 showing a 1.9 cm mass at 2 o'clock. She had an US on the same day, revealing a 2.5 x 1.9 x 3.1 cm solid, hypoechoic mass at 2 o'clock. She had a needle core biopsy on 11/28/16, confirming an invasive ductal carcinoma, grade 3, ER/OH strongly positive, and Her -2 2+ . FISH was equivocal with Her-2 signal at 5.1, but Her-2/CEP ratio of 1.2. This was felt to be likely negative She was referred here for further evaluation and recommendations. Breast Next testing was negative for any deleterious gene mutations She proceeded with lumpectomy with SNB and then axillary dissection on 01/10/17 , revealing a 2.8 cm IDC, grade III, with 4 nodes positive with macromets, including one with extranodal extension ( 9 mm), and 1 with micromets. She had repeat Her-2 testing on the lumpectomy specimen, which again showed IHC 2+, signal 5.1, and ratio still 1.5 ( equivocal) She was referred to the [facility] for an opinion re the Her 2 and it was advised to treat that as negative. She started chemo on 03/07/17 and is s/p 4 cycles of DD AC, and 4 of DD Taxol, completing those on 06/16/17. according to recommendations from the [facility], she had additional excision for margins, on 07/18/18, with no residual disease found. The patient subsequently started radiation The patient has been having neck and shoulder pain since late 07/23. This has become progressively worse and has also affected her proximal legs. She is noted progressive weakness in her arms and legs and has fallen once. In addition she developed a reddish rash on her chest and face. She therefore came into the emergency room and was admitted for further management. She had called the office complaining of increased pain and had labs done on 05/24 which had shown minor liver enzyme elevation, with tumor markers within normal limits Review of Systems Constitutional: Reports fatigue, Reports weakness Eyes: denies blurred vision, denies pain Ears: deny: decreased hearing, ear discharge, earache, tinnitus Ears, nose, mouth and throat: Denies headache, Denies sore throat Cardiovascular: Denies chest pain, Denies shortness of breath Respiratory: Denies cough Gastrointestinal: Denies abdominal pain, Denies diarrhea, Denies nausea, Denies vomiting Genitourinary: Denies dysuria, Denies hematuria Musculoskeletal: Reports muscle weakness, Reports myalgias Musculoskeletal: bilateral: shoulder pain, shoulder stiffness Integumentary: Reports rash Neurological: Reports weakness Psychiatric: Denies anxiety, Denies depression Endocrine: Denies fatigue, Denies weight change Hematologic/Lymphatic: Reports as per HPI Past Medical History Past Medical History: Cancer Additional Past Medical History / Comment(s): left breast cancer had sx and 05-23 completed her 8th and last chemo tx."heartburn during chemo", anxiety. History of Any Multi-Drug Resistant Organisms: None Reported Past Surgical History: Breast Surgery, Cholecystectomy, Tonsillectomy Additional Past Surgical History / Comment(s): Sinus surgery, Breast implants and removal years ago. january 2017 dx w/ lt breast cancer-had lumpectomy,sentinal lymph node bx axillary node dissection. rt upper chest mediport place. then 07/23 had. lumpectomy revision"took more tissue and 1 lymph node" Past Anesthesia/Blood Transfusion Reactions: No Reported Reaction Smoking Status: Former smoker - Past Family History Father Family Medical History: Cancer Additional Family Medical History / Comment(s): prostate CA Medications and Allergies Home Medications Medication Instructions Recorded Confirmed Type Venlafaxine HCl [Effexor] 75 mg PO DAILY 01/05/17 08/24/17 History Multivitamins, Thera [Multivitamin 1 tab PO DAILY 02/23/17 08/24/17 History (formulary)] Acetaminophen Tab [Tylenol Tab] 1,000 mg PO Q6HR PRN 08/24/17 08/24/17 History Cyclobenzaprine [Flexeril] 10 mg PO DAILY PRN 08/24/17 08/24/17 History Ibuprofen [Motrin] 400 mg PO DAILY PRN 08/24/17 08/24/17 History Omeprazole 40 mg PO DAILY 08/24/17 08/24/17 History traMADol HCl [Ultram] 25 mg PO Q4HR PRN 08/24/17 08/24/17 History Allergies Allergy/AdvReac Type Severity Reaction Status Date / Time No Known Allergies Allergy Verified 08/24/17 14:57 Physical Exam Vitals: Vital Signs Temp Pulse Pulse Pulse Resp BP BP 08/25/17 07:00 98.5 F 120 H 18 116/70 08/24/17 23:00 97.2 F L 118 H 16 150/88 08/24/17 18:55 139/88 08/24/17 18:02 98.1 F 113 H 18 150/105 08/24/17 17:04 97.4 F L 117 H 16 122/89 08/24/17 16:01 118 H 08/24/17 15:30 98.5 F 118 H 15 136/88 Pulse Ox 08/25/17 07:00 99 08/24/17 23:00 100 08/24/17 18:55 08/24/17 18:02 100 08/24/17 17:04 99 08/24/17 16:01 08/24/17 15:30 100 Intake and Output 08/24/17 08/25/17 08/25/17 22:59 06:59 14:59 Intake Total 590 Balance 590 Intake: Oral 590 Other: Voiding Method Toilet Toilet # Voids 2 2 Weight 81.647 kg Patient Weight 08/26/17 06:59 Weight 81.647 kg - Constitutional General appearance: no acute distress - EENT Eyes: EOMI, PERRLA ENT: hearing grossly normal, normal oropharynx - Neck Neck: no lymphadenopathy Thyroid: bilateral: normal size - Respiratory Respiratory: bilateral: CTA - Cardiovascular Rhythm: regular Heart sounds: normal: S1, S2 - Gastrointestinal General gastrointestinal: normal bowel sounds, soft - Integumentary Reddish maculopapular confluent rash, affecting malar areas of the face bilaterally, and extending onto the neck and upper chest Integumentary: rash - Neurologic Sensation is intact. Reflexes are within normal limits. Decreased muscle strength in upper and lower extremities proximal greater than distal bilaterally. However is about 4/ 5 - Musculoskeletal Proximal greater than distal muscle weakness upper and lower extremities as noted above Musculoskeletal: generalized weakness - Psychiatric Psychiatric: A&O x's 3, appropriate affect Results CBC & Chem 7: 08/24/17 15:20 08/24/17 15:20 Labs: Abnormal Lab Results - Last 24 Hours (Table) 08/24/17 08/24/17 08/24/17 Range/Units 15:20 15:20 15:20 Lymphocytes # 0.3 L (1.0-4.8) k/uL APTT (22.0-30.0) sec BUN 21 H (7-17) mg/dL Creatinine 0.42 L (0.52-1.04) mg/dL Glucose 117 H (74-99) mg/dL AST 111 H (14-36) U/L ALT 89 H (9-52) U/L Creatine Kinase (30-135) U/L Total Creatine Kinase 1597 H (30-135) U/L CK-MB (CK-2) 6.8 H* (0.0-2.4) ng/mL Troponin I 0.056 H* (0.000-0.034) ng/mL Total Protein 5.6 L (6.3-8.2) g/dL Albumin 3.2 L (3.5-5.0) g/dL 08/24/17 08/25/17 08/25/17 Range/Units 15:20 10:20 10:20 Lymphocytes # (1.0-4.8) k/uL APTT 36.7 H (22.0-30.0) sec BUN (7-17) mg/dL Creatinine (0.52-1.04) mg/dL Glucose (74-99) mg/dL AST (14-36) U/L ALT (9-52) U/L Creatine Kinase 1332 H (30-135) U/L Total Creatine Kinase (30-135) U/L CK-MB (CK-2) (0.0-2.4) ng/mL Troponin I 0.059 H* (0.000-0.034) ng/mL Total Protein (6.3-8.2) g/dL Albumin (3.5-5.0) g/dL Microbiology - Last 24 Hours (Table) 08/25/17 00:50 Urine Culture - Preliminary Urine,Voided Comments: report of echocardiogram reviewed Assessment and Plan (1) Rhabdomyolysis Narrative/Plan: The patient was noted to have rhabdomyolysis with increased muscle enzymes, on presentation with her progressive muscle weakness and pain. She has tenderness on palpation of muscle groups especially proximally. Case has been extensively discussed with the internal medicine service, surgery and rheumatology. The clinical presentation is felt to be highly suggestive of dermatomyositis- polymyositis. Patient has been started on IV steroids. Muscle biopsy was recommended and surgery consulted for the same. As acute is not available, this will likely be done in the middle of next week. According to my discussion with rheumatology,this duration os steroids should not affect the results of the biopsy Current Visit: Yes Status: Acute Code(s): M62.82 - RHABDOMYOLYSIS SNOMED Code(s): 000211039 (2) Breast cancer Narrative/Plan: Diagnostic and therapeutic circumstances as described. All clinical exam, as well as recent labs the patient did not have any suspicious findings to indicate recurrence. However dermatomyositis-polymyositis can be a paraneoplastic occurrence. Therefore the patient will need restaging studies to check for recurrent disease. Computed tomography scan of the chest abdomen and pelvis and bone scan will be ordered. As noted tumor markers were checked last week and were negative. Current Visit: Yes Status: Acute Code(s): C50.919 - MALIGNANT NEOPLASM OF UNSP SITE OF UNSPECIFIED FEMALE BREAST SNOMED Code(s): 791310005
[2017-08-25 17:12] LABS: Appearance,Urine Clear (Clear); Bilirubin,Urine Negative (Negative); Blood,Urine Negative (Negative); Color,Urine Light Yellow; Glucose,Urine (UA) Negative (Negative); Ketones,Urine Negative (Negative); Leukocyte Esterase,Urine Negative (Negative); Nitrite,Urine Negative (Negative); Protein,Urine Negative (Negative); Specific Gravity,Urine 1.006 (1.001-1.035); Urobilinogen,Urine <2.0 mg/dL (<2.0)
[2017-08-25 17:18] LABS: Uric Acid 4.1 mg/dL (3.7-7.4)
[2017-08-25] MEDS: methylPREDNISolone SOD SUCCI 125 MG/2 ML VIAL IV SCH ×2 (17:42→23:19)
[2017-08-25 18:10] LABS: C Reactive Protein 24.1 mg/L (<10.0)
--- NOTE | 2017-08-25 19:44 | P.PN ---
Progress Note - Text Progress Note Date: 08/25/17 DATE OF SERVICE: 08/25/2017 PRESENTING COMPLAINT: Muscle weakness HISTORY OF PRESENT ILLNESS: 46-year-old female with a history of breast cancer received 8 cycles of chemotherapy and receiving radiation with Dr. Mendez, and a lumpectomy performed by Dr. Yulia Arauz who presents with 2-3 weeks of increasing muscle weakness , achiness in the muscles, more so in proximal muscles finding it difficult to get up and sit down trouble lifting her arms noticed a rash on her face in the V of the neck. Some facial swelling noted tired short of breath admitted for these symptoms. INTERVAL HISTORY: 08/25/2017: Sitting up in bed, no acute overnight events vital signs stable. States she continues to have difficulty with muscle soreness she is fine as long as she sits still. Any activity causes her muscles ache. Scheduled for a muscle biopsy later today. Nothing by mouth for the time being, ambulatory with assistance, last BM prior to admission. REVIEW OF SYSTEMS: Done for constitutional ,cardiovascular, GI, pulmonary with relevant findings as above. CURRENT MEDICATIONS Tylenol, Flexeril, Motrin, Solu-Medrol, Lopressor, Theragran multivitamin, Protonix, tramadol, Effexor or. PHYSICAL EXAM VITAL SIGNS: Temperature 98.5, pulse 120, respiratory rate 18, blood pressure 116/70, oxygen saturation 99% on room air. GENERAL APPEARANCE: Sitting up in bed, mildly anxious appearing. HENT: Patient has slight facial edema and a rash that extends over both cheeks and the surrounding area. Some telangiectasia and some rash in the V part of the neck. Normocephalic, JVD not raised. Mass not palpable. Oral cavity normal , external appearance of ears and nose normal. EYES:Pupils equal. Conjunctiva normal. RESPIRATORY: Respiratory effort normal. Lungs fair air entry CARDIOVASCULAR: First and second sounds normal. Minimal edema. ABDOMEN: Soft. Liver and spleen not palpable. No tenderness. No mass palpable. PSYCHIATRY: Alert and oriented x3. Mood and affect anxious appearing. NEUROLOGICAL: Proximal muscle weakness when raising her arms and legs. INVESTIGATIONS: ASSESSMENT: -Proximal muscle weakness for 2 or 3 weeks with difficulty standing up, getting down, muscle achiness. Rash on her face and in the V of her neck suspect dermatomyositis, which is associated with malignancy. -Obesity body mass index 30.9. -Gastroesophageal reflux disease. -Troponin leak, probably from hemodynamic mismatch. Patient does not have any cardiac symptoms it is possible for the patient may have an element of myocarditis. PLAN: Muscle biopsy scheduled for today was canceled. Steroids initiated today as this will not affect the muscle biopsy when it's completed.. Rheumatology consulted and will await their input. Gen. surgery is signed off for the time being until the biopsy kit is available which may be Monday of next week Plan of care discussed at the bedside with the patient she is in agreement with. We will follow closely. FLEXIBLE BABYSITTER statement: Patient was seen and examined by nurse practitioner Caty Mann and all elements of the case discussed with attending Dr. Blanchard
[2017-08-26 00:32] LABS: Protein, Total 5.3 g/dL (6.2-8.2); Rheumatoid Factor 7 IU/mL (0-15)
[2017-08-26 01:01] LABS: Hepatitis C IgG Antibody Non-Reactive (Non-Reactive)
[2017-08-26 01:18] LABS: Centromere Antibody Interp NEGATIVE (NEGATIVE)
[2017-08-26 01:38] LABS: Cyclic Citrullinated Pep IgG NEGATIVE (NEGATIVE); DNA Double-Stranded NEGATIVE (NEGATIVE); RNP 0.4 AI; Scleroderma SC-70 Ab <0.2 AI
[2017-08-26 02:21] LABS: Cardiolipin Ab IgG Interp NEGATIVE (NEGATIVE); Cardiolipin Ab IgM Interp NEGATIVE (NEGATIVE)
[2017-08-26] MEDS: methylPREDNISolone SOD SUCCI 125 MG/2 ML VIAL IV SCH ×3 (06:18→18:15)
[2017-08-26] MEDS: PANTOPRAZOLE 40 MG TABLET PO SCH (08:45)
[2017-08-26] MEDS: VENLAFAXINE HCL ER 75 MG CAP PO SCH (08:45)
[2017-08-26] MEDS: METOPROLOL TARTRATE 12.5 MG TAB PO SCH ×2 (08:45→20:41)
[2017-08-26] MEDS: traMADol 50 MG TAB PO PRN (10:39)
--- NOTE | 2017-08-26 12:09 | NM ---
EXAMINATION TYPE: NM bone scan whole body DATE OF EXAM: 08/26/2017 COMPARISON: NONE HISTORY: Breast cancer Delayed whole-body scanning was performed following the injection of 25.1 mCi Tc 99m MDP. Images acq uired 3 hours post injection. FINDINGS: There is a normal distribution of radiopharmaceutical without convincing scintigraphic evid ence of metastases. IMPRESSION: No evidence of metastases at this time.
[2017-08-26] MEDS: MULTIVITAMINS, THERA 1 EACH TAB PO SCH (12:51)
[2017-08-26 13:41] LABS: HLA B27 NEGATIVE
[2017-08-26 17:38] LABS: Glucose,Whole Blood 184 mg/dL (75-99)
--- NOTE | 2017-08-26 18:13 | PN ---
PROGRESS NOTE DATE OF SERVICE: 08/26/2017 This is a 46-year-old woman who was admitted with significant proximal myopathy, is being closely monitored. A biopsy is being planned next week. No chest pain. No palpitations. No fever. The recent bone scan is negative for any metastatic malignancy at this time. Otherwise, acute rhabdomyolysis is also being suspected. Hematemesis polymyositis component is being considered at this time. The patient also has some tenderness with palpation. The creatinine is elevated to 1474. HLA B27 is negative. PAST MEDICAL HISTORY: Reviewed. REVIEW OF SYSTEMS: CARDIOVASCULAR SYSTEM: No angina. RESPIRATORY SYSTEM: No cough. GI: As mentioned earlier. : No dysuria. NERVOUS SYSTEM: As mentioned earlier. CURRENT MEDICATIONS: 1. Tylenol 1000 q.6 p.r.n. 2. Flexeril 10 mg daily. 3. Motrin. 4. Solu-Medrol 60 IV q.6. 5. Lopressor. 6. Multivitamins. 7. Protonix. 8. Ultram. 9. Effexor XR 75 mg p.o. daily. PHYSICAL EXAM: Patient is alert and oriented x3. Pulse is 118, blood pressure 130/90, respirations 16, pulse ox 94% room air, temperature 98.7. HEENT: Conjunctivae normal. Oral mucosa moist. Neck is no jugular venous distention. No lymph node enlargement. CARDIOVASCULAR SYSTEM: S1, S2. RESPIRATORY SYSTEM: Breath sounds diminished at the bases. A few scattered rhonchi, no crackles. ABDOMEN: Soft, nontender. No mass. LEGS: No edema, no swelling. NERVOUS SYSTEM: Higher functions as mentioned earlier. There is modest and diffuse weakness and some tenderness also present especially in the proximal muscles, gait dysfunction also present. LYMPHATICS: No lymph nodes present in the neck or axillae. LABS: CBC within normal limits. Creatinine is 0.42. AST, ALT is elevated. Creatinine kinase is noted. ASSESSMENT: 1. 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 2. Rhabdomyolysis. 3. Obesity. 4. Gastroesophageal reflux disease. 5. Increased AST, ALT. 6. History of breast cancer. 7. History of cholecystectomy. 8. History of anxiety. RECOMMENDATION: In this 46-year-old woman who presented with multiple complex medical issues, will monitor the patient closely. Continue with the current medications, continue with current management and symptomatic treatment. Otherwise at this time I would recommend IV steroids, monitor closely. PT/OT evaluation. Fall precautions. IV steroids to be continued. Monitor blood sugars closely. DVT prophylaxis. Restaging studies per Dr. Gan because the demonstrated polymyositis syndrome could be paraneoplastic. The overall prognosis is guarded because of multiple complex medical issues. Further recommendations to follow. Repeat labs also will be ordered. MMODL / IJN: [id number] /
[2017-08-26] MEDS: INSULIN ASPART 100 UNIT/ML 1 ML 10 ML VIAL SQ SCH ×2 (18:15→20:41)
[2017-08-26 20:33] LABS: Glucose,Whole Blood 222 mg/dL (75-99)
[2017-08-26] MEDS: SODIUM CHLORIDE 0.9% 1,000 ML IV SCH (20:42)
[2017-08-27] MEDS: methylPREDNISolone SOD SUCCI 125 MG/2 ML VIAL IV SCH ×5 (00:04→23:31)
[2017-08-27] MEDS: SODIUM CHLORIDE 0.9% 1,000 ML IV SCH ×3 (06:09→23:31)
[2017-08-27 07:16] LABS: Basophils % (A) 0 %; Eosinophils % (A) 0 %; HCT 42.7 % (34.0-46.0); HGB 13.5 gm/dL (11.4-16.0); Hypochromasia Slight; Lymphocytes # (A) 0.2 k/uL (1.0-4.8); Lymphocytes % (A) 4 %; MCH 30.8 pg (25.0-35.0); MCHC 31.6 g/dL (31.0-37.0); MCV 97.5 fL (80.0-100.0); Mean Platelet Volume 8.3; Monocytes # (A) 0.5 k/uL (0-1.0); Monocytes % (A) 7 %; Neutrophils # (A) 5.3 k/uL (1.3-7.7); Neutrophils % (A) 86 %; Platelet Count 227 k/uL (150-450); RBC 4.38 m/uL (3.80-5.40); RDW 14.7 % (11.5-15.5); WBC 6.1 k/uL (3.8-10.6)
[2017-08-27 07:33] LABS: ALT 83 U/L (9-52); AST 89 U/L (14-36); Albumin 3.2 g/dL (3.5-5.0); Alkaline Phosphatase 66 U/L (38-126); Anion Gap 10 mmol/L; Blood Urea Nitrogen 15 mg/dL (7-17); Calcium 9.3 mg/dL (8.4-10.2); Carbon Dioxide 24 mmol/L (22-30); Chloride 107 mmol/L (98-107); Creatine Kinase 935 U/L (30-135); Glucose 140 mg/dL (74-99); Sodium 141 mmol/L (137-145); Total Bilirubin 0.2 mg/dL (0.2-1.3); Total Protein 5.7 g/dL (6.3-8.2)
[2017-08-27 08:06] LABS: Glucose,Whole Blood 143 mg/dL (75-99)
[2017-08-27] MEDS: METOPROLOL TARTRATE 12.5 MG TAB PO SCH ×2 (08:20→20:44)
[2017-08-27] MEDS: VENLAFAXINE HCL ER 75 MG CAP PO SCH (08:20)
[2017-08-27] MEDS: PANTOPRAZOLE 40 MG TABLET PO SCH (08:20)
[2017-08-27] MEDS: INSULIN ASPART 100 UNIT/ML 1 ML 10 ML VIAL SQ SCH ×4 (08:20→20:44)
[2017-08-27 12:03] LABS: Glucose,Whole Blood 213 mg/dL (75-99)
--- NOTE | 2017-08-27 12:32 | PN ---
PROGRESS NOTE DATE OF SERVICE: 08/25/17 ATTENDING NOTE: Patient seen and examined by me on August 25, 2017. Discussed with my nurse practitioner, Ms. Mann. Patient is admitted with proximal muscle weakness. Lying in bed, tired appearing. PHYSICAL EXAMINATION: Temperature 98.4, pulse 117, respiratory 18, blood pressure 140/92, pulse ox 96% on room air. HEENT external appearance of nose and ears normal. Oral cavity normal. The patient has got a rash in the face. Neck JVD not raised. Mass not palpable. Respiratory effort normal. Lungs fair entry. Cardiovascular first and second sounds no edema. ABDOMEN: Soft, nontender. Liver and spleen not palpable. Musculoskeletal: Proximal muscle weakness. Minimal muscle tenderness. Psych AO x3. Mood and affect normal. INVESTIGATIONS: ESR 9. CPK 1474, CRP 24.1. ASSESSMENT: 1. 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 Hold off steroids until the patient evaluated by Dr. Cage from Rheumatology, uncontrolled. 2. Obesity BMI 30.9. 3. Gastroesophageal reflux disease. 4. Troponin leak likely from hemodynamic mismatch consider myocarditis. 5. Breast cancer status post treatment in progress including radiation treatment. PLAN: I spoke to Dr. Vigil from general surgery early in the morning. The muscle biopsy kit is not here, she will have to do this on Monday. Also spoke to Dr. Gan from oncology. Will have lactation specialist Dr. Cage see the patient and then steroids can be started. I spoke to the patient and her and kids in the room. Care was discussed. Total time spent was about 40-45 minutes today with over 25 minutes off discussion as above. MMODL / IJN: [id number] /
[2017-08-27] MEDS: MULTIVITAMINS, THERA 1 EACH TAB PO SCH (13:02)
[2017-08-27] MEDS: traMADol 50 MG TAB PO PRN ×2 (14:11→17:48)
[2017-08-27 16:33] LABS: Glucose,Whole Blood 129 mg/dL (75-99)
--- NOTE | 2017-08-27 16:59 | PN ---
PROGRESS NOTE DATE OF SERVICE: August 27, 2017. CHIEF COMPLAINT: Muscle weakness. Yessenia is seen today as a followup. She continues to have significant muscle weakness in her upper and lower extremities and she continues to have skin rash. Other than feeling tired, otherwise, she denies any fever, chills, nausea, or vomiting. MEDICATION: Reviewed in her electronic medical record. PHYSICAL EXAMINATION: She is alert, oriented x3. Her vital signs are temperature 98.3, afebrile, pulse 101 regular, respirations 16, blood pressure 137/96. HEENT: Normocephalic, atraumatic. She has cushingoid face. NECK: Supple. Equal expansion bilaterally. Lungs are clear to auscultation. Heart is regular rate and rhythm. ABDOMEN: Soft. No tenderness. EXTREMITIES: No edema. However, she has obvious proximal muscle weakness in both upper and lower extremities. IMPRESSION: 1. Stage 3A breast carcinoma. The patient received ERPR positive and HER-2/lisa negative. She had surgery and received adjuvant dose dense AC and dose dense Taxol, completed adjuvant treatment on 06/16/2017. 2. Clinical symptoms suggestive of dermatomyositis polymyositis. The patient is currently on IV steroid and scheduled for a muscle biopsy next week. There is no clinical radiographic evidence to suggest any recurrence of her malignancy. She had a recent CT scan of the chest, abdomen and pelvis and she just had a bone scan and tumor markers, which were all negative. The results of recent bone scan was discussed with the patient again today. Thank you very much. MMODL / IJN: [id number] /
--- NOTE | 2017-08-27 18:34 | PN ---
PROGRESS NOTE DATE OF SERVICE: 08/27/2017. INTERVAL HISTORY: This 46-year-old woman was admitted with significant proximal myopathy, also had history of recent malignancy, polymyositis and is considered at this time. Dr. Anderson and multiple consultants are following the patient closely. No chest pain. No palpitations. No fever. PHYSICAL EXAM: Alert and oriented times three. Pulse 107, blood pressure 130/90, respirations 16, temperature 98.2, pulse ox 94% on room air. HEENT: Conjunctivae normal. Neck: No jugular venous distention. CARDIOVASCULAR: S1, S2 normal. RESPIRATORY SYSTEM: Breath sounds diminished at the bases. No rhonchi and no crackles. ABDOMEN: Soft, nontender. No mass palpable. Legs: Significant weakness present. Nervous system: Diffuse weakness mainly proximal. Reflexes are noted. Skin: Rash present. LAB STUDIES: WBC 6.2, hemoglobin 13.5, and AST is 89, ALT is 83. ASSESSMENT: 1. Acute weakness with proximal muscle weakness with dermatomasis, polymyosis . 2. Rhabdomyolysis, acute. 3. Obesity. 4. Gastroesophageal reflux disease. 5. Gait dysfunction. 6. Increased AST and ALT. 7. History of breast cancer. 8. History of cholecystectomy. 9. History of anxiety. RECOMMENDATIONS AND TREATMENT: Continue current medications, management, monitoring and symptomatic treatment. Otherwise, at this time, I recommend continue with IV fluids, IV steroids have been initiated. Otherwise continue to monitor. The creatinine kinase is improving. I would also recommend PT/OT evaluation as well as possible ECF rehab also. The patient is deemed unsafe. MMODL / IJN: [id number] / JOSÉ MIGUEL
[2017-08-27 19:47] LABS: Hemoglobin A1C 5.8 % (4.0-6.0)
[2017-08-27 20:29] LABS: Glucose,Whole Blood 143 mg/dL (75-99)
[2017-08-28] MEDS: methylPREDNISolone SOD SUCCI 125 MG/2 ML VIAL IV SCH ×2 (05:48→14:22)
[2017-08-28 07:04] LABS: Glucose,Whole Blood 135 mg/dL (75-99)
[2017-08-28 07:39] LABS: Basophils % (A) 0 %; Eosinophils % (A) 0 %; HCT 43.4 % (34.0-46.0); HGB 13.7 gm/dL (11.4-16.0); Lymphocytes # (A) 0.3 k/uL (1.0-4.8); Lymphocytes % (A) 4 %; MCH 30.6 pg (25.0-35.0); MCHC 31.5 g/dL (31.0-37.0); MCV 96.9 fL (80.0-100.0); Mean Platelet Volume 7.6; Monocytes # (A) 0.5 k/uL (0-1.0); Monocytes % (A) 6 %; Neutrophils # (A) 7.5 k/uL (1.3-7.7); Neutrophils % (A) 88 %; Platelet Count 247 k/uL (150-450); RBC 4.48 m/uL (3.80-5.40); RDW 13.5 % (11.5-15.5); WBC 8.5 k/uL (3.8-10.6)
[2017-08-28] MEDS: VENLAFAXINE HCL ER 75 MG CAP PO SCH (08:04)
[2017-08-28] MEDS: INSULIN ASPART 100 UNIT/ML 1 ML 10 ML VIAL SQ SCH ×4 (08:04→21:48)
[2017-08-28] MEDS: SODIUM CHLORIDE 0.9% 1,000 ML IV SCH ×2 (08:04→21:53)
[2017-08-28] MEDS: PANTOPRAZOLE 40 MG TABLET PO SCH (08:04)
[2017-08-28] MEDS: METOPROLOL TARTRATE 12.5 MG TAB PO SCH ×2 (08:04→21:49)
[2017-08-28] MEDS: traMADol 50 MG TAB PO PRN ×2 (08:05→21:47)
[2017-08-28 08:10] LABS: ALT 89 U/L (9-52); AST 80 U/L (14-36); Albumin 3.3 g/dL (3.5-5.0); Alkaline Phosphatase 66 U/L (38-126); Anion Gap 11 mmol/L; Blood Urea Nitrogen 16 mg/dL (7-17); Calcium 9.5 mg/dL (8.4-10.2); Carbon Dioxide 24 mmol/L (22-30); Chloride 105 mmol/L (98-107); Creatine Kinase 803 U/L (30-135); Glucose 129 mg/dL (74-99); Potassium 4.2 mmol/L (3.5-5.1); Sodium 140 mmol/L (137-145); Total Bilirubin 0.3 mg/dL (0.2-1.3); Total Protein 5.8 g/dL (6.3-8.2)
[2017-08-28 09:54] LABS: Histone Antibody 0.3 Units (0.0-0.9)
[2017-08-28 10:34] LABS: Albumin 3.05 g/dL (3.80-4.90); Gamma Globulin 0.51 g/dL (0.70-1.50)
[2017-08-28 11:46] LABS: Glucose,Whole Blood 131 mg/dL (75-99)
[2017-08-28 11:57] LABS: APTT 43 Sec(s) (<43); Dilute Russell Viper Venom 41 Sec(s) (<44)
[2017-08-28] MEDS: MULTIVITAMINS, THERA 1 EACH TAB PO SCH (14:23)
[2017-08-28 14:41] LABS: C-ANCA <1:20 Titer (<1:20); P-ANCA <1:20 Titer (<1:20)
[2017-08-28 14:48] LABS: Smooth Muscle Antibody 34 UNITS (<20)
[2017-08-28 15:50] LABS: Angiotensin-1 Converting Enz. 57 U/L (8-52)
[2017-08-28 17:29] LABS: Glucose,Whole Blood 208 mg/dL (75-99)
[2017-08-28 20:36] LABS: Glucose,Whole Blood 201 mg/dL (75-99)
--- NOTE | 2017-08-28 21:45 | PN ---
PROGRESS NOTE DATE OF SERVICE: 08/28/2017 This 46-year-old woman was admitted with acute weakness and proximal muscle weakness and possible dementia as well as polymyositis. No chest pain. No palpitations. No fever. EXAM: Alert and oriented times three. Pulse 118, blood pressure 135/94, respirations 16, temperature 97.2, pulse ox 94% room air. HEENT: Conjunctivae normal. Neck: No jugular venous distention. Cardiovascular: S1, S2 muffled. Respiratory: Breath sounds diminished in the bases. A few scattered rhonchi. No crackles. Abdomen is soft, nontender. Legs no edema. No swelling. Nervous system: Diffuse weakness especially in the proximal muscles. Diffuse erythema also present. LABS: CBC within normal limits, otherwise glucose 135, AST and ALT noted. ASSESSMENT: 1. 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 2. Acute rhabdomyolysis. 3. Gait dysfunction. 4. Obesity. 5. Gastroesophageal reflux disease. 6. Increased AST and ALT. 7. History of breast cancer. 8. History of cholecystectomy. 9. History of anxiety. RECOMMENDATIONS AND DISCUSSION: Recommend to continue current medications, continue with monitoring, management and symptomatic treatment. PT/OT evaluation. Otherwise Dr. Cage is following the patient closely. Steroids may be converted into p.o. and continue to monitor. Otherwise the prognosis is guarded because of multiple complex medical issues. Further recommendations to follow. Bone scan noted. Discussed with the patient understands and agrees. MMODL / IJN: [id number] /
[2017-08-29 07:17] LABS: Glucose,Whole Blood 75 mg/dL (75-99)
[2017-08-29] MEDS: INSULIN ASPART 100 UNIT/ML 1 ML 10 ML VIAL SQ SCH ×4 (07:57→20:53)
[2017-08-29 07:58] LABS: Basophils % (A) 0 %; Eosinophils % (A) 0 %; HGB 13.6 gm/dL (11.4-16.0); Hypochromasia Slight; Lymphocytes # (A) 0.3 k/uL (1.0-4.8); Lymphocytes % (A) 5 %; MCH 30.1 pg (25.0-35.0); MCHC 31.6 g/dL (31.0-37.0); MCV 95.3 fL (80.0-100.0); Mean Platelet Volume 8.2; Monocytes # (A) 0.7 k/uL (0-1.0); Monocytes % (A) 10 %; Neutrophils % (A) 82 %; Platelet Count 257 k/uL (150-450); RBC 4.51 m/uL (3.80-5.40); RDW 14.5 % (11.5-15.5); WBC 7.4 k/uL (3.8-10.6)
[2017-08-29 08:16] LABS: ALT 88 U/L (9-52); AST 76 U/L (14-36); Albumin 3.2 g/dL (3.5-5.0); Alkaline Phosphatase 58 U/L (38-126); Anion Gap 10 mmol/L; Blood Urea Nitrogen 18 mg/dL (7-17); Calcium 9.2 mg/dL (8.4-10.2); Carbon Dioxide 25 mmol/L (22-30); Chloride 107 mmol/L (98-107); Creatine Kinase 732 U/L (30-135); Glucose 76 mg/dL (74-99); Potassium 3.8 mmol/L (3.5-5.1); Sodium 142 mmol/L (137-145); Total Bilirubin 0.3 mg/dL (0.2-1.3); Total Protein 5.7 g/dL (6.3-8.2)
--- NOTE | 2017-08-29 08:57 | P.CONS ---
History of Present Illness - Reason for Consult Consult date: 08/25/17 elevated CPK, bilateral muscle weakness Requesting physician: Mikey Blanchard - Chief Complaint bilateral muscle weakness - History of Present Illness Patient states that since around [place] time she has felt weakness and soreness in her upper and lower extremities, more so in her lower extremities especially weakness in her thighs. Patient states that when she wakes she feels very stiff in her thighs. Around New Year's patient was very weak to the point where it was very difficult to rise from her chair to go to her bed and needed assistance from her family. Patient previously was otherwise very active. Patient was receiving radiation yesterday at [facility] where she felt very weak and had facial flushing and facial swelling and was sent to the ER where she was found to have elevated CPK of 1597. Review of Systems Respiratory: Reports dyspnea Musculoskeletal: Reports muscle weakness Past Medical History Past Medical History: Cancer Additional Past Medical History / Comment(s): left breast cancer had sx and 05-23 completed her 8th and last chemo tx."heartburn during chemo", anxiety. History of Any Multi-Drug Resistant Organisms: None Reported Past Surgical History: Breast Surgery, Cholecystectomy, Tonsillectomy Additional Past Surgical History / Comment(s): Sinus surgery, Breast implants and removal years ago. january 2017 dx w/ lt breast cancer-had lumpectomy,sentinal lymph node bx axillary node dissection. rt upper chest mediport place. then 07/23 had. lumpectomy revision"took more tissue and 1 lymph node" Past Anesthesia/Blood Transfusion Reactions: No Reported Reaction Smoking Status: Former smoker - Past Family History Father Family Medical History: Cancer Additional Family Medical History / Comment(s): prostate CA Medications and Allergies Home Medications Medication Instructions Recorded Confirmed Type Venlafaxine HCl [Effexor] 75 mg PO DAILY 01/05/17 08/24/17 History Multivitamins, Thera [Multivitamin 1 tab PO DAILY 02/23/17 08/24/17 History (formulary)] Acetaminophen Tab [Tylenol Tab] 1,000 mg PO Q6HR PRN 08/24/17 08/24/17 History Cyclobenzaprine [Flexeril] 10 mg PO DAILY PRN 08/24/17 08/24/17 History Ibuprofen [Motrin] 400 mg PO DAILY PRN 08/24/17 08/24/17 History Omeprazole 40 mg PO DAILY 08/24/17 08/24/17 History traMADol HCl [Ultram] 25 mg PO Q4HR PRN 08/24/17 08/24/17 History Allergies Allergy/AdvReac Type Severity Reaction Status Date / Time No Known Allergies Allergy Verified 08/24/17 14:57 Physical Exam Vitals: Vital Signs Temp Pulse Resp BP Pulse Ox 08/29/17 08:19 136/98 08/29/17 07:00 97.9 F 97 18 143/102 96 08/28/17 23:00 97.8 F 89 16 120/85 96 08/28/17 21:40 99 136/100 08/28/17 15:00 97.6 F 118 H 16 135/94 94 L Intake and Output 08/28/17 08/29/17 08/29/17 22:59 06:59 14:59 Intake Total 350 Balance 350 Intake: IV 350 Sodium Chloride 0.9% 1, 350 000 ml @ 100 mls/hr IV . Q10H [facility] Rx#:[id number] Other: Voiding Method Toilet Toilet # Voids 1 1 On physical exam there is no kalpesh evidence of synovitis. Patient is weak bilaterally and equally, upper extremities 2+/5, lower extremity 2+/5 bilaterally. Patient's lungs are clear to auscultation. Results CBC & Chem 7: 08/29/17 07:22 08/29/17 07:22 Labs: Abnormal Lab Results - Last 24 Hours (Table) 08/25/17 08/25/17 08/28/17 Range/Units 16:28 16:28 11:40 Lymphocytes # (1.0-4.8) k/uL BUN (7-17) mg/dL Creatinine (0.52-1.04) mg/dL POC Glucose (mg/dL) 131 H (75-99) mg/dL AST (14-36) U/L ALT (9-52) U/L Creatine Kinase (30-135) U/L Total Protein (6.3-8.2) g/dL Albumin (3.5-5.0) g/dL Albumin (PEP) 3.05 L (3.80-4.90) g/dL Gamma Globulins 0.51 L (0.70-1.50) g/dL Angiotensin Convert Enz 57 H (8-52) U/L Anti-Smooth Muscle Ab 34 H (<20) UNITS 08/28/17 08/28/17 08/29/17 Range/Units 17:28 20:31 07:22 Lymphocytes # 0.3 L (1.0-4.8) k/uL BUN (7-17) mg/dL Creatinine (0.52-1.04) mg/dL POC Glucose (mg/dL) 208 H 201 H (75-99) mg/dL AST (14-36) U/L ALT (9-52) U/L Creatine Kinase (30-135) U/L Total Protein (6.3-8.2) g/dL Albumin (3.5-5.0) g/dL Albumin (PEP) (3.80-4.90) g/dL Gamma Globulins (0.70-1.50) g/dL Angiotensin Convert Enz (8-52) U/L Anti-Smooth Muscle Ab (<20) UNITS 08/29/17 Range/Units 07:22 Lymphocytes # (1.0-4.8) k/uL BUN 18 H (7-17) mg/dL Creatinine 0.45 L (0.52-1.04) mg/dL POC Glucose (mg/dL) (75-99) mg/dL AST 76 H (14-36) U/L ALT 88 H (9-52) U/L Creatine Kinase 732 H (30-135) U/L Total Protein 5.7 L (6.3-8.2) g/dL Albumin 3.2 L (3.5-5.0) g/dL Albumin (PEP) (3.80-4.90) g/dL Gamma Globulins (0.70-1.50) g/dL Angiotensin Convert Enz (8-52) U/L Anti-Smooth Muscle Ab (<20) UNITS Assessment and Plan Assessment: Patient is here today as a consult for elevated CPK. Patient's previous medical history includes left breast cancer which she was diagnosed with in the first week of November, HER-2/lisa test came back undecipherable so she was referred to [facility] for second opinion. Patient received 8 cycles of chemotherapy starting in March. Patient initially had a lumpectomy on January 10 and had a revision at [facility] where they took another lymph node and more of the margins on July 18. Patient is on her 3rd week of radiation starting today, does radiation at [facility] 5 days a week. Patient states that since around [place] time she has felt weakness and soreness in her upper and lower extremities, more so in her lower extremities especially weakness in her thighs. Patient states that when she wakes she feels very stiff in her thighs. Around patient was very weak to the point where it was very difficult to rise from her chair to go to her bed and needed assistance from her family. Patient previously was otherwise very active. Patient was receiving radiation yesterday at [facility] where she felt very weak and had facial flushing and facial swelling and was sent to the ER where she was found to have elevated CPK of 1597. Patient also complains of shortness of breath that started around July 31 shortness of breath at rest or with little activity, denies cough. Patient does complain of pain in her ankles but denies any swelling. Patient states she takes 2 Motrin in the morning which helps her stiffness and pain somewhat but does not completely relieve her pain. Patient does have erythema on her chest neck and on the back of her neck as well , rash is not raised. Patient states that she did feel patient also has facial flushing with redness and does feel that her face feels pruritic and warm. On physical exam there is no kalpesh evidence of synovitis. Patient is weak bilaterally and equally, upper extremities 2+/5, lower extremity 2+/5 bilaterally. Patient's lungs are clear to auscultation. On review of labs, patient's CPK on admission was 1,597. CK-MB was 6.8 and Troponin was 0.056 and cardiology was consulted, AST 111 and ALT 89. Glucose 117 , creatinine 0.42. Cardiology consult states troponin elevation is not related to myocarditis, and that elevated CPK and troponin may be related to chemotherapy or exacerbated by radiation therapy. Echocardiogram and EKG were normal, LVEF >55%. Surgery consult states that thigh biopsy was cancelled today due to availability of kit for biopsy, so rescheduled to Monday. (1) Muscle weakness (generalized) Current Visit: Yes Status: Acute Code(s): M62.81 - MUSCLE WEAKNESS ( GENERALIZED) SNOMED Code(s): 84890512 (2) Rash and other nonspecific skin eruption Current Visit: Yes Status: Acute Code(s): R21 - RASH AND OTHER NONSPECIFIC SKIN ERUPTION SNOMED Code(s): 617483232 (3) Elevated creatine kinase Current Visit: Yes Status: Acute Code(s): R74.8 - ABNORMAL LEVELS OF OTHER SERUM ENZYMES SNOMED Code(s): 996603549 Plan: Patient is here today as a consult for elevated CPK. Patient's previous medical history includes left breast cancer which she was diagnosed with in the first week of November, HER-2/lisa test came back undecipherable so she was referred to [facility] for second opinion. Patient received 8 cycles of chemotherapy starting in March. Patient initially had a lumpectomy on January 10 and had a revision at [facility] where they took another lymph node and more of the margins on July 18. Patient is on her 3rd week of radiation starting today, does radiation at [facility] 5 days a week. Patient states that since around [place] time she has felt weakness and soreness in her upper and lower extremities, more so in her lower extremities especially weakness in her thighs. Patient states that when she wakes she feels very stiff in her thighs. Around patient was very weak to the point where it was very difficult to rise from her chair to go to her bed and needed assistance from her family. Patient previously was otherwise very active. Patient was receiving radiation yesterday at [facility] where she felt very weak and had facial flushing and facial swelling and was sent to the ER where she was found to have elevated CPK of 1597. Patient also complains of shortness of breath that started around July 31 shortness of breath at rest or with little activity, denies cough. Patient does complain of pain in her ankles but denies any swelling. Patient states she takes 2 Motrin in the morning which helps her stiffness and pain somewhat but does not completely relieve her pain. Patient does have erythema on her chest neck and on the back of her neck as well , rash is not raised. Patient states that she did feel patient also has facial flushing with redness and does feel that her face feels pruritic and warm. On physical exam there is no kalpesh evidence of synovitis. Patient is weak bilaterally and equally, upper extremities 2+/5, lower extremity 2+/5 bilaterally. Patient's lungs are clear to auscultation. On review of labs, patient's CPK on admission was 1,597. CK-MB was 6.8 and Troponin was 0.056 and cardiology was consulted, AST 111 and ALT 89. Glucose 117 , creatinine 0.42. Cardiology consult states troponin elevation is not related to myocarditis, and that elevated CPK and troponin may be related to chemotherapy or exacerbated by radiation therapy. Echocardiogram and EKG were normal, LVEF >55%. Surgery consult states that thigh biopsy was cancelled today due to availability of kit for biopsy, so rescheduled to Monday. I will order complete connective tissue disease panel for patient to evaluate for possible dermatomyositis or if this could be possibly paraneoplastic syndrome. Patient will be started IV solumedrol 60 mg every 6 hours. Patient is set to have muscle biopsy on Monday. Time with Patient: Greater than 30
[2017-08-29] MEDS ORDERED: predniSONE 10 MG TAB PO SCH (09:00)
--- NOTE | 2017-08-29 09:07 | P.CONS ---
History of Present Illness - Reason for Consult Consult date: 08/28/17 elevated CPK, muscle weakness, rash Requesting physician: Mikey Blanchard - Chief Complaint muscle weakness, rash - History of Present Illness Patient states that since around [place] time she has felt weakness and soreness in her upper and lower extremities, more so in her lower extremities especially weakness in her thighs. Patient states that when she wakes she feels very stiff in her thighs. Around ' patient was very weak to the point where it was very difficult to rise from her chair to go to her bed and needed assistance from her family. Patient previously was otherwise very active. Patient was receiving radiation yesterday at [facility] where she felt very weak and had facial flushing and facial swelling and was sent to the ER where she was found to have elevated CPK of 1597. Patient also complains of shortness of breath that started around July 31 shortness of breath at rest or with little activity, denies cough. Patient does complain of pain in her ankles but denies any swelling. Patient states she takes 2 Motrin in the morning which helps her stiffness and pain somewhat but does not completely relieve her pain. Past Medical History Past Medical History: Cancer Additional Past Medical History / Comment(s): left breast cancer had sx and 05-23 completed her 8th and last chemo tx."heartburn during chemo", anxiety. History of Any Multi-Drug Resistant Organisms: None Reported Past Surgical History: Breast Surgery, Cholecystectomy, Tonsillectomy Additional Past Surgical History / Comment(s): Sinus surgery, Breast implants and removal years ago. january 2017 dx w/ lt breast cancer-had lumpectomy,sentinal lymph node bx axillary node dissection. rt upper chest mediport place. then 07/23 had. lumpectomy revision"took more tissue and 1 lymph node" Past Anesthesia/Blood Transfusion Reactions: No Reported Reaction Smoking Status: Former smoker - Past Family History Father Family Medical History: Cancer Additional Family Medical History / Comment(s): prostate CA Medications and Allergies Home Medications Medication Instructions Recorded Confirmed Type Venlafaxine HCl [Effexor] 75 mg PO DAILY 01/05/17 08/24/17 History Multivitamins, Thera [Multivitamin 1 tab PO DAILY 02/23/17 08/24/17 History (formulary)] Acetaminophen Tab [Tylenol Tab] 1,000 mg PO Q6HR PRN 08/24/17 08/24/17 History Cyclobenzaprine [Flexeril] 10 mg PO DAILY PRN 08/24/17 08/24/17 History Ibuprofen [Motrin] 400 mg PO DAILY PRN 08/24/17 08/24/17 History Omeprazole 40 mg PO DAILY 08/24/17 08/24/17 History traMADol HCl [Ultram] 25 mg PO Q4HR PRN 08/24/17 08/24/17 History Allergies Allergy/AdvReac Type Severity Reaction Status Date / Time No Known Allergies Allergy Verified 08/24/17 14:57 Physical Exam Vitals: Vital Signs Temp Pulse Resp BP Pulse Ox 08/29/17 08:19 136/98 08/29/17 07:00 97.9 F 97 18 143/102 96 08/28/17 23:00 97.8 F 89 16 120/85 96 08/28/17 21:40 99 136/100 08/28/17 15:00 97.6 F 118 H 16 135/94 94 L Intake and Output 08/28/17 08/29/17 08/29/17 22:59 06:59 14:59 Intake Total 350 Balance 350 Intake: IV 350 Sodium Chloride 0.9% 1, 350 000 ml @ 100 mls/hr IV . Q10H [facility] Rx#:[id number] Other: Voiding Method Toilet Toilet # Voids 1 1 Strength in arms have improved, however still has trouble raising arms above head. Results CBC & Chem 7: 08/29/17 07:22 08/29/17 07:22 Labs: Abnormal Lab Results - Last 24 Hours (Table) 08/25/17 08/25/17 08/28/17 Range/Units 16:28 16:28 11:40 Lymphocytes # (1.0-4.8) k/uL BUN (7-17) mg/dL Creatinine (0.52-1.04) mg/dL POC Glucose (mg/dL) 131 H (75-99) mg/dL AST (14-36) U/L ALT (9-52) U/L Creatine Kinase (30-135) U/L Total Protein (6.3-8.2) g/dL Albumin (3.5-5.0) g/dL Albumin (PEP) 3.05 L (3.80-4.90) g/dL Gamma Globulins 0.51 L (0.70-1.50) g/dL Angiotensin Convert Enz 57 H (8-52) U/L Anti-Smooth Muscle Ab 34 H (<20) UNITS 08/28/17 08/28/17 08/29/17 Range/Units 17:28 20:31 07:22 Lymphocytes # 0.3 L (1.0-4.8) k/uL BUN (7-17) mg/dL Creatinine (0.52-1.04) mg/dL POC Glucose (mg/dL) 208 H 201 H (75-99) mg/dL AST (14-36) U/L ALT (9-52) U/L Creatine Kinase (30-135) U/L Total Protein (6.3-8.2) g/dL Albumin (3.5-5.0) g/dL Albumin (PEP) (3.80-4.90) g/dL Gamma Globulins (0.70-1.50) g/dL Angiotensin Convert Enz (8-52) U/L Anti-Smooth Muscle Ab (<20) UNITS 08/29/17 Range/Units 07:22 Lymphocytes # (1.0-4.8) k/uL BUN 18 H (7-17) mg/dL Creatinine 0.45 L (0.52-1.04) mg/dL POC Glucose (mg/dL) (75-99) mg/dL AST 76 H (14-36) U/L ALT 88 H (9-52) U/L Creatine Kinase 732 H (30-135) U/L Total Protein 5.7 L (6.3-8.2) g/dL Albumin 3.2 L (3.5-5.0) g/dL Albumin (PEP) (3.80-4.90) g/dL Gamma Globulins (0.70-1.50) g/dL Angiotensin Convert Enz (8-52) U/L Anti-Smooth Muscle Ab (<20) UNITS Assessment and Plan Assessment: Patient is seen in follow-up and seems to be doing 30% better in terms of 5 muscle strength still has a hard time raising her arms above her head. She has been able to go to the bathroom but still has a hard time getting off the toilet without support. She's been on Solu-Medrol 60 mg IV every 6 since Monday and is awaiting for biopsy on Monday. Her connective tissue disease panel was reviewed which is essentially all negative and shows no positive serologies. It looks like her to mammographry is also negative. Her CPKs have improved from the thousands to 800 and strength in arms also have improved. I reassured the patient that I see no evidence of primary myositis antibodies but we will wait for the biopsy is going on. Rhabdomyolysis is also possibility but that didn't explain his skin rash that occurred around the same time but this certainly could've been a viral syndrome causing bilateral weakness but we will await to see the muscle biopsy. She may also need a EMG to look for myopathic versus neuropathic changes as an outpatient. Today I will change her IV Solu-Medrol to prednisone 30 mg twice a day; home and work done as outpatient for her muscle biopsy. She' ll need to see me in 2 weeks' time to discuss response to oral prednisone. I discussed taper and discuss muscle biopsy results and further plan of care. (1) Muscle weakness (generalized) Current Visit: Yes Status: Acute Priority: High Code(s): M62.81 - MUSCLE WEAKNESS (GENERALIZED) SNOMED Code(s): 80685297 (2) Rash and other nonspecific skin eruption Current Visit: Yes Status: Acute Priority: High Code(s): R21 - RASH AND OTHER NONSPECIFIC SKIN ERUPTION SNOMED Code(s): 565346330 (3) Elevated creatine kinase Current Visit: Yes Status: Acute Code(s): R74.8 - ABNORMAL LEVELS OF OTHER SERUM ENZYMES SNOMED Code(s): 731317311 Plan: I reassured the patient that I see no evidence of primary myositis antibodies but we will wait for the biopsy is going on. Rhabdomyolysis is also possibility but that didn't explain his skin rash that occurred around the same time but this certainly could've been a viral syndrome causing bilateral abdomen but we will await to see the muscle biopsy. She may also need a EMG to look for myopathic versus neuropathic changes as an outpatient. Today I will change her IV Solu-Medrol to prednisone 30 mg twice a day; home and work done as outpatient for her muscle biopsy. She'll need to see me in 2 weeks' time to discuss response to oral prednisone I discussed taper and discuss muscle biopsy results and further plan of care. Time with Patient: Greater than 30
[2017-08-29] MEDS: PANTOPRAZOLE 40 MG TABLET PO SCH (09:20)
[2017-08-29] MEDS: METOPROLOL TARTRATE 12.5 MG TAB PO SCH ×2 (09:20→20:52)
[2017-08-29] MEDS: VENLAFAXINE HCL ER 75 MG CAP PO SCH (09:21)
[2017-08-29] MEDS: traMADol 50 MG TAB PO PRN (09:22)
[2017-08-29] MEDS: predniSONE 10 MG TAB PO SCH ×2 (09:30→20:55)
[2017-08-29 11:16] LABS: Glucose,Whole Blood 98 mg/dL (75-99)
[2017-08-29] MEDS: MULTIVITAMINS, THERA 1 EACH TAB PO SCH (13:26)
--- NOTE | 2017-08-29 14:43 | P.PN ---
Progress Note - Text Progress Note Date: 08/29/17 Spoke with the patient discussed the plan of care patient is scheduled tomorrow morning at 7 AM for a biopsy. Patient is aware of the plan of care questions answered. Patient is nothing by mouth after midnight for the planned procedure. Patient states the numbness to the upper thighs continues to persist will follow with you Progress note dictated for Dr. Vigil The above impression and plan of care have been discussed and directed by signing physician. Marguerite Galaviz nurse practitioner acting as scribe for signing physician.
--- NOTE | 2017-08-29 16:10 | P.PN ---
Subjective Progress Note Date: 08/29/17 Principal diagnosis: rrhabdomyolysis, proximal muscle weakness Patient seen today in follow-up, no significant improvement in proximal muscle strength after starting steroids. Patient denies nausea, indigestion, she is able to ambulate slowly, she is anxious to go home Objective - Vital Signs Vital signs: Vital Signs Temp 98.6 F 08/29/17 15:00 Pulse 108 H 08/29/17 15:00 Resp 18 08/29/17 15:00 BP 140/93 08/29/17 15:00 Pulse Ox 92 L 08/29/17 15:00 Intake & Output 08/28/17 08/29/17 08/29/17 18:59 06:59 18:59 Intake Total 350 800 Balance 350 800 Intake: IV 350 800 Sodium Chloride 0.9% 1, 350 800 000 ml @ 100 mls/hr IV . Q10H [facility] Rx#:[id number] Other: Voiding Method Toilet Toilet Toilet # Voids 3 1 - Constitutional General appearance: Present: cooperative, no acute distress - EENT Eyes: Present: normal appearance - Respiratory Details: respirations even and unlabored - Integumentary Integumentary: Present: normal - Neurologic Neurologic: Present: CNII-XII intact - Musculoskeletal Musculoskeletal Comment(s): bilateral lower extremity weakness, hip flexion strength 3-4 / 5 Musculoskeletal: Present: strength equal bilaterally - Psychiatric Psychiatric: Present: A&O x's 3, appropriate affect, intact judgment & insight - Labs CBC & Chem 7: 08/29/17 07:22 08/29/17 07:22 Labs: Abnormal Lab Results - Last 24 Hours (Table) 08/28/17 08/28/17 08/29/17 Range/Units 17:28 20:31 07:22 Lymphocytes # 0.3 L (1.0-4.8) k/uL BUN (7-17) mg/dL Creatinine (0.52-1.04) mg/dL POC Glucose (mg/dL) 208 H 201 H (75-99) mg/dL AST (14-36) U/L ALT (9-52) U/L Creatine Kinase (30-135) U/L Total Protein (6.3-8.2) g/dL Albumin (3.5-5.0) g/dL 08/29/17 Range/Units 07:22 Lymphocytes # (1.0-4.8) k/uL BUN 18 H (7-17) mg/dL Creatinine 0.45 L (0.52-1.04) mg/dL POC Glucose (mg/dL) (75-99) mg/dL AST 76 H (14-36) U/L ALT 88 H (9-52) U/L Creatine Kinase 732 H (30-135) U/L Total Protein 5.7 L (6.3-8.2) g/dL Albumin 3.2 L (3.5-5.0) g/dL Assessment and Plan (1) Muscle weakness (generalized) Narrative/Plan: Patient has been seen by rheumatology, she was started on steroids without anticipated improvement, plan is for muscle biopsy for diagnosis. Patient will follow up in the outpatient setting. she has been provided steroid and GI prophylaxis prescriptions Current Visit: Yes Status: Acute Priority: High Code(s): M62.81 - MUSCLE WEAKNESS (GENERALIZED) SNOMED Code(s): 13563095 (2) Breast cancer Narrative/Plan: Patient had her treatment follow-up recently, no evidence of disease. She still has radiation to complete. Patient's appointment with Dr. Gan was adjusted with date and time in the medical record. Patient is aware Current Visit: No Status: Chronic Priority: Low Code(s): C50.919 - MALIGNANT NEOPLASM OF UNSP SITE OF UNSPECIFIED FEMALE BREAST SNOMED Code(s): 277161613
[2017-08-29 17:11] LABS: Glucose,Whole Blood 130 mg/dL (75-99)
[2017-08-29] MEDS ORDERED: fentaNYL (PF) 50 MCG/ML 2 ML AMP IV PRN (17:18)
[2017-08-29 17:23] LABS: Aldolase 11.7 U/L (1.2-7.6)
[2017-08-29] MEDS: LACTATED RINGERS 1,000 ML IV SCH (17:37)
--- NOTE | 2017-08-29 18:10 | PN ---
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 Biopsies are pending tomorrow. The antibodies are negative. Rhabdomyolysis is also a possibility. No chest pain. No palpitations. No fever. PHYSICAL EXAMINATION: Alert and oriented x3. Pulse is 108, blood pressure 149/83, respiration 18, temperature 98.2, pulse ox 98% on room air. HEENT: Conjunctivae normal. NECK: No jugular venous distention. CARDIOVASCULAR SYSTEM: S1, S2 muffled. RESPIRATORY SYSTEM: Breath sounds diminished at the bases. No rhonchi. No crackles. ABDOMEN: Soft, non-tender. NERVOUS SYSTEM: Diffusely weak. LABS: AST 76. ALT is 88. Albumin is 3.2. ASSESSMENT: 1. 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 2. Acute rhabdomyolysis. 3. Gait dysfunction. 4. Obesity. 5. Gastroesophageal reflux disease. 6. Increased AST ALT. 7. History of breast cancer. 8. History of cholecystectomy. 9. History of anxiety. RECOMMENDATIONS AND DISCUSSION: I recommend to continue current medications, continue symptomatic treatment. Otherwise, at this time we will monitor the patient closely. Guarded prognosis because of the multiple complex medical issues. Further recommendations to follow. MMODL / IJN: [id number] /
[2017-08-29] MEDS: SODIUM CHLORIDE 0.9% 1,000 ML IV SCH ×2 (18:59→22:01)
[2017-08-29 20:26] LABS: Glucose,Whole Blood 150 mg/dL (75-99)
[2017-08-29] MEDS ORDERED: Pre Op ABX Message 1 EACH MISC MISCELLANE PRN (21:19)
[2017-08-30] MEDS ORDERED: HEPARIN SODIUM,PORCINE 5,000 UNIT/ML 1 ML VIAL SQ PRN (05:00)
[2017-08-30 06:44] LABS: Glucose,Whole Blood 109 mg/dL (75-99)
[2017-08-30] MEDS: LACTATED RINGERS 1,000 ML IV SCH ×2 (07:00→07:10)
[2017-08-30] MEDS ORDERED: LIDOCAINE 1%/EPI 1:200,000 MPF 10 ML VIAL SQ ONE (07:10)
[2017-08-30] MEDS ORDERED: DEXAMETHASONE SOD PHOS (MDV) 100 MG/10 ML VIAL ONE (07:10)
[2017-08-30] MEDS ORDERED: fentaNYL (PF) 50 MCG/ML 2 ML AMP ONE (07:10)
[2017-08-30] MEDS ORDERED: MIDAZOLAM 2 MG/2 ML VIAL ONE (07:10)
[2017-08-30] MEDS ORDERED: PROPOFOL 10 MG/ML 20 ML VIAL IV ONE (07:10)
[2017-08-30] MEDS ORDERED: SUCCINYLCHOLINE CHLORIDE 100 MG/5 ML SYR IV ONE (07:10)
[2017-08-30] MEDS ORDERED: ONDANSETRON 4 MG/2 ML VIAL ONE (07:10)
[2017-08-30] MEDS ORDERED: SODIUM CHLORIDE 0.9% 50 ML with ceFAZolin 2,000 MG IV ONE ×2 (07:17)
[2017-08-30] MEDS ORDERED: HYDROcodone/APAP 5-325MG 1 EACH TAB PO PRN (08:21)
--- NOTE | 2017-08-30 08:22 | P.OP ---
Date of Procedure: 08/30/17 Preoperative Diagnosis: History of breast cancer Muscle pain Elevated CPK Skin rash Postoperative Diagnosis: Same Procedure(s) Performed: Right vastus lateralis muscle biopsy Anesthesia: AISHA, local Surgeon: Mackenzie Vigil Estimated Blood Loss (ml): 5 Pathology: other Condition: stable Disposition: PACU Indications for Procedure: 47 years old female with muscle pain, skin rash and history of breast cancer presents for right thigh muscle biopsy.Informed consent obtained. Operative Findings: 3 muscle biopsies were sent : Fresh frozen, formalin and electron microscopy Description of Procedure: patient was brought to the operating room and placed in supine position. Gen. anesthesia with endotracheal intubation was performed as per anesthesia team. A timeout was performed to verify correct patient and correct procedure. Chlorhexidine was used to prep the skin followed by the sterile structures. clinical anesthetic was infiltrated along the skin and subcutis tissue. A 4 cm skin longitudional skin incision was made along the right lateral thigh and was deepened through the skin and subcutaneous tissue.the fascia overlying the thigh muscles was incised. The vastus lateralis muscle was identified. 3 muscle biopsy were taken measuring 1.5 x 1 cm and 1x 1cm and 1.5 x 0.3 cm. the muscle biopsy specimen were mounted as per instruction and sent for fresh frozen ,paraffin embedded and electron microscopy respectively. Hemostasis was checked. The divided end of the muscles were tied using 3-0 Vicryl. The subcutaneous tissue was closed with interrupted sutures of 3-0 Vicryl. Skin ramona applied. Patient tolerated the procedure well and was taken to post anesthesia care unit in stable condition
[2017-08-30] MEDS: HYDROmorphone 2 MG/ML 1 ML SYRINGE IV ONE ×4 (08:33→08:57)
[2017-08-30 08:38] VITALS: RESP 16
[2017-08-30] MEDS: INSULIN ASPART 100 UNIT/ML 1 ML 10 ML VIAL SQ SCH ×2 (09:31→12:27)
[2017-08-30 09:40] VITALS: TEMP 97.9
[2017-08-30] MEDS: METOPROLOL TARTRATE 12.5 MG TAB PO SCH (09:58)
[2017-08-30] MEDS: PANTOPRAZOLE 40 MG TABLET PO SCH (09:59)
[2017-08-30] MEDS: predniSONE 10 MG TAB PO SCH (10:01)
[2017-08-30] MEDS: VENLAFAXINE HCL ER 75 MG CAP PO SCH (10:02)
[2017-08-30 12:20] LABS: Glucose,Whole Blood 130 mg/dL (75-99)
[2017-08-30 12:32] LABS: Basophils % (A) 0 %; Eosinophils % (A) 0 %; HCT 43.1 % (34.0-46.0); HGB 13.8 gm/dL (11.4-16.0); Lymphocytes # (A) 0.2 k/uL (1.0-4.8); Lymphocytes % (A) 2 %; MCH 30.6 pg (25.0-35.0); MCHC 32.1 g/dL (31.0-37.0); MCV 95.6 fL (80.0-100.0); Mean Platelet Volume 7.9; Monocytes # (A) 0.4 k/uL (0-1.0); Monocytes % (A) 6 %; Neutrophils # (A) 6.5 k/uL (1.3-7.7); Neutrophils % (A) 90 %; Platelet Count 261 k/uL (150-450); RBC 4.51 m/uL (3.80-5.40); RDW 14.9 % (11.5-15.5); WBC 7.3 k/uL (3.8-10.6)
[2017-08-30 12:40] LABS: ALT 85 U/L (9-52); AST 90 U/L (14-36); Albumin 3.7 g/dL (3.5-5.0); Alkaline Phosphatase 66 U/L (38-126); Anion Gap 11 mmol/L; Blood Urea Nitrogen 18 mg/dL (7-17); Calcium 9.5 mg/dL (8.4-10.2); Carbon Dioxide 26 mmol/L (22-30); Chloride 102 mmol/L (98-107); Creatine Kinase 966 U/L (30-135); Glucose 123 mg/dL (74-99); Potassium 4.5 mmol/L (3.5-5.1); Sodium 139 mmol/L (137-145); Total Bilirubin 0.3 mg/dL (0.2-1.3); Total Protein 6.2 g/dL (6.3-8.2)
[2017-08-30 12:51] VITALS: BP 144/97; PULSE 107
[2017-08-30] MEDS: MULTIVITAMINS, THERA 1 EACH TAB PO SCH (12:58)
[2017-08-30] MEDS: traMADol 50 MG TAB PO PRN (13:03)
--- NOTE | 2017-08-31 08:48 | DS ---
DISCHARGE SUMMARY FINAL DIAGNOSES: 1. 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 2. Negative serologies. 3. Acute rhabdomyolysis. 4. Gait dysfunction. 5. Obesity. 6. Gastroesophageal reflux disease. 7. Increased AST/ALT. 8. History of breast cancer. 9. History of cholecystectomy. 10.History of anxiety. 11.Status post muscle biopsy. DISCHARGE DISPOSITION: The patient is being discharged in stable condition with guarded prognosis. HISTORY OF PRESENT ILLNESS: This 47-year-old woman with a past medical history of multiple medical problems including breast cancer, was admitted with significant weakness, features of dermatostomatitis, but however the serology markers were negative, treated symptomatic with steroids and patient improved significantly. The radiation is being continued as outpatient. Muscle biopsy done by Dr. Vigil. Recommended outpatient followup. On exam, vitals are stable. Cardiovascular S1, S2. Abdomen soft. Central nervous system: No focal deficits. DISCHARGE ADVICE MEDICATIONS: 1. Diet is cardiac diet. 2. Activity limited until followup. 3. Follow up with Dr. Mullins in 2-3 days. 4. Follow up with Dr. Cage as advised. 5. Follow up with Dr. Gan as recommended. MEDICATIONS ARE: 1. Tylenol 1000 mg q.6 p.r.n. 2. Flexeril 10 mg daily p.r.n. 3. Motrin 400 mg. 4. Lopressor 12.5 mg b.i.d. 5. Multivitamins. 6. Omeprazole 40 mg daily. 7. Prednisone 30 mg b.i.d. after food. 8. Ultram 25 mg q.4h p.r.n. 9. Effexor 75 mg p.o. daily. Followup labs CBC, BMP in the outpatient setting and continued monitoring. MMODL / IJN: [id number] /
== END 2017-08-30 13:52 | disposition home or self-care (01) | DRG 502 ==
LOC: EC 13:52 → 5ONC 16:28
PROVIDERS: ADMIT Hospitalist; ATTEND Hospitalist
PROC: 0KBQ0ZX Excision of Right Upper Leg Muscle, Open Approach, Diagnostic (ICD-10-PCS; principal; 2017-08-30 07:00)
DX: M62.82 Rhabdomyolysis (principal); C50.919 Malignant neoplasm of unspecified site of unspecified female breast; E66.9 Obesity, unspecified; R21 Rash and other nonspecific skin eruption; F41.9 Anxiety disorder, unspecified; T45.1X5A Adverse effect of antineoplastic and immunosuppressive drugs, initial encounter; R26.9 Unspecified abnormalities of gait and mobility; K21.9 Gastro-esophageal reflux disease without esophagitis; Z79.899 Other long term (current) drug therapy; Z80.42 Family history of malignant neoplasm of prostate; Z90.49 Acquired absence of other specified parts of digestive tract; Z90.89 Acquired absence of other organs; Z68.30 Body mass index [BMI] 30.0-30.9, adult; Z92.3 Personal history of irradiation; Z92.21 Personal history of antineoplastic chemotherapy; Z82.49 Family history of ischemic heart disease and other diseases of the circulatory system; Z87.891 Personal history of nicotine dependence; Z17.0 Estrogen receptor positive status [ER+]
CPT/HCPCS: 36415; 71046; 78306; 80053; 81003; 81025; 82085; 82164; 82550; 82553; 83036; 83516; 83605; 83735; 84100; 84165; 84443; 84484; 84550; 85025; 85610; 85613; 85652; 85730; 86038; 86140; 86147; 86160; 86200; 86225; 86235; 86255; 86334; 86431; 86803; 86812; 87086; 87340; 87502; 93005; 93306; 94760; 96361; 96374; 99285

== ENCOUNTER → 2018-01-15 | Outpatient (CLI) | payer BC ==
--- NOTE | 2018-01-15 09:50 | MM ---
Reason for exam: additional evaluation requested from prior study. Last mammogram was performed 1 year and 2 months ago. History: Patient is postmenopausal and has history of breast cancer at age 46. Malignant MG pre op needle loc LT of the left breast, January 10, 2017. Malignant US biopsy breast VAD LT of the left breast, November 28, 2016. Taking tamoxifen beginning at age 47. Physical Findings: Nurse did not find any significant physical abnormalities on exam. MG 3D Diag Mammo W/Cad REYNOLD Bilateral CC and MLO view(s) were taken. XCCL and LM view(s) were taken of the left breast. Prior study comparison: November 28, 2016, left breast MG diagnostic mammo LT wo CAD. Finding: There is a large high density, circumscribed where visualized, oval mass in the upper outer quadrant, axillary tail position of the left breast consistent with surgical site hematoma/seroma. No othere post mammogram images prior. No significant changes in finding since November 28, 2016. These results were verbally communicated with the patient and result sheet given to the patient on 01/15/18. ASSESSMENT: Probably benign, BI-RAD 3 RECOMMENDATION: Follow-up diagnostic mammogram of the left breast in 6 months.
== END | disposition home or self-care (01) ==
LOC: RADMAMWWP 08:44
PROVIDERS: ATTEND Radiology Radiation Oncology
DX: Z08 Encounter for follow-up examination after completed treatment for malignant neoplasm (principal); Z85.3 Personal history of malignant neoplasm of breast
CPT/HCPCS: 77062; 77066

== ENCOUNTER → 2018-02-02 | Outpatient (CLI) | payer BC ==
[2018-02-02 11:16] VITALS: BP 124/86; PULSE 108; TEMP 98.4; BMI 33.5
--- NOTE | 2018-02-02 11:35 | P.GSHP ---
History of Present Illness H&P Date: 02/02/18 Patient is a 47 year old white female status post excision of a tumor in her left breast January of last year, she had chemotherapy from March to June 182016. In August she started radiation therapy which she finished at the end of September. She was admited August 23 with dermatomyositis and was in the hospital for a week. She is taking tamoxifen and folic acid at this time. She did have some swelling of her left arm and was seen by lymphedema specialist and has exercises she is doing at this time. She has no complaints of any problems related to her breast. No nipple discharge or changes. Although the patient had several nodes removed and [place] she was seen at [facility] and an additional node was removed which was negative for cancer. The patient was told she had stage III breast cancer. The patient had a bilateral mammogram done 01/15/2018 this was felt to be probably benign thyroid cyst 3 follow-up diagnostic mammogram of the left breast in 6 months time recommended. There was noted to be a high density circumscribed was visualized a mass in the upper outer quadrant axillary tail consistent with surgical site. Patient had a port placed for chemotherapy. She wants this to be removed at this time. The patient is following with Dr. Gan as well as Dr. Gregorio from radiation oncology. The patient is following with Dr. Cage for her dermatomyositis. family history: 1. patient diagnosed at 46 breast menarche: 12 pregancy: 2, children: 2 breast fed: none menopause: related to tamoxifen BCP: 14 years hormones: none social history: Smoking: Negative Alcohol: Negative Drugs: Negative ROS: HEENT: blurred vision lungs: none heart: HTN GI: none : menopausal Musculoskeletal: Dermatomyositis patient is presently on prednisone side effects related to this ALLERGIES: Negative - Constitutional Constitutional: Reports as per HPI - EENT Eyes: bilateral as per HPI Ears: deny: decreased hearing, tinnitus Ears, nose, mouth and throat: Denies headache, Denies sore throat - Breasts Breasts: bilateral: as per HPI - Cardiovascular Cardiovascular: Reports shortness of breath, Denies chest pain - Respiratory Respiratory: Denies cough, Denies 7 - Gastrointestinal Gastrointestinal: Denies abdominal pain, Denies diarrhea, Denies nausea, Denies vomiting - Genitourinary (Female) Genitourinary: Denies dysuria, Denies hematuria - Musculoskeletal Comment: Dermatomyositis Musculoskeletal: Reports muscle weakness - Integumentary Comment: bruisng related to prednisone - Neurological Neurological: Reports as per HPI, Reports weakness - Psychiatric Psychiatric: Reports anxiety, Denies depression - Endocrine Comment: Weight gain related to prednisone Endocrine: Reports weight change, Denies fatigue - Hematologic/Lymphatic Hematologic/Lymphatic: Reports easy bruising - Allergic/Immunologic Comment: none Past Medical History Past Medical History: Cancer Additional Past Medical History / Comment(s): left breast cancer had sx and 05-23 completed her 8th and last chemo tx."heartburn during chemo", anxiety. History of Any Multi-Drug Resistant Organisms: None Reported Past Surgical History: Breast Surgery, Cholecystectomy, Tonsillectomy Additional Past Surgical History / Comment(s): Sinus surgery, Breast implants and removal years ago. january 2017 dx w/ lt breast cancer-had lumpectomy,sentinal lymph node bx axillary node dissection. rt upper chest mediport place. then 07/23 had. lumpectomy revision"took more tissue and 1 lymph node" Past Anesthesia/Blood Transfusion Reactions: No Reported Reaction Smoking Status: Former smoker - Past Family History Father Family Medical History: Cancer Additional Family Medical History / Comment(s): prostate CA Medications and Allergies Home Medications Medication Instructions Recorded Confirmed Type Venlafaxine HCl [Effexor] 75 mg PO DAILY 01/05/17 02/02/18 History Multivitamins, Thera [Multivitamin 1 tab PO DAILY 02/23/17 02/02/18 History (formulary)] Ibuprofen [Motrin] 400 mg PO DAILY PRN 08/24/17 02/02/18 History Omeprazole 40 mg PO DAILY #90 capsule. 08/29/17 02/02/18 Rx Metoprolol Tartrate [Lopressor] 12.5 mg PO BID #60 tab 08/30/17 02/02/18 Rx Folic Acid 0.4 tab PO DAILY 02/02/18 02/02/18 History Tamoxifen [Nolvadex] 10 tab PO DAILY 02/02/18 02/02/18 History predniSONE 15 mg PO DAILY 02/02/18 02/02/18 History Allergies Allergy/AdvReac Type Severity Reaction Status Date / Time No Known Allergies Allergy Verified 08/24/17 14:57 Surgical - Exam - General changes related to prednisone well developed, no distress - Eyes normal ocular movement - ENT no hearing loss, no congestion - Neck no masses, trachea midline - Respiratory normal respiratory effort, clear to auscultation - Cardiovascular Rhythm: regular Heart Sounds: normal: S1, S2 - Abdomen Abdomen: soft, non tender, no guarding, no rigid, no rebound - Integumentary brusing lower extremities related to prednisone - Neurologic no disoriented, no combative - Musculoskeletal using a cane to walk - Psychiatric oriented to time, oriented to person, oriented to place, speech is normal, memory intact Breast examination: Right breast: No dominant masses or nodules of concern and multiple positional exam Right axilla: No adenopathy of concern Left breast: Lumpectomy and radiation changes however no dominant masses or nodules of concern Left axilla: No adenopathy of concern well-healed scar Results Mammogram from 01/15/2018 results reviewed follow-up diagnostic mammogram of the left breast in 6 months this was a bilateral mammogram Assessment and Plan Assessment: Impression/plan: 1. Patient being treated for stage III breast cancer 2. Dermatomyositis 3. Patient had Port-A-Cath removed which she no longer needs and wishes to be removed 4. Hypertension 5. Easy bruising related to steroids Plan: 1. Continued tamoxifen for treatment of stage III breast cancer 2. Continue follow-up with radiation and medical oncology 3. Removal of Port-A-Cath 4. Continued treatment of dermatomyositis as per Dr. Cage CC: DR. Verdin, Dr. Gan, DR. Cage, Dr. Gregorio
== END | disposition home or self-care (01) ==
LOC: WWCWWP 10:32
PROVIDERS: ATTEND Surgery
DX: Z85.3 Personal history of malignant neoplasm of breast (principal); Z92.21 Personal history of antineoplastic chemotherapy; Z87.891 Personal history of nicotine dependence; Z45.2 Encounter for adjustment and management of vascular access device; T38.0X5A Adverse effect of glucocorticoids and synthetic analogues, initial encounter; M33.13 Other dermatomyositis without myopathy; I10 Essential (primary) hypertension; F41.9 Anxiety disorder, unspecified

== ENCOUNTER → 2018-05-17 | Day surgery (SDC) | payer BC ==
[2018-05-17 13:34] VITALS: RESP 16; BMI 37.9
[2018-05-17 14:20] VITALS: BP 141/96; PULSE 108; TEMP 97.6
== END | disposition home or self-care (01) ==
LOC: RADUSWWP 11:00
PROVIDERS: ATTEND Internal Medicine Hematology & Oncology
DX: C50.412 Malignant neoplasm of upper-outer quadrant of left female breast (principal)
CPT/HCPCS: 88305; 88173; J2001

== ENCOUNTER → 2018-05-17 | Day surgery (SDC) | payer BC ==
[2018-05-17 11:37] VITALS: BMI 34.8
--- NOTE | 2018-05-17 13:08 | USB ---
EXAMINATION TYPE: US breast aspiration single LT DATE OF EXAM: 05/17/2018 CLINICAL HISTORY: N63 PALPABLE MASS. Painful palpable left breast mass with overlying redness and swelling, abnormal ultrasound. Completed treatment for breast cancer left side diagnosed 2016 TECHNIQUE: Ultrasound guided fine-needle aspiration of left breast. COMPARISON: Same day ultrasound and older studies. FINDINGS: The procedure of ultrasound guided fine-needle aspiration was explained to the patient. Benefits, alternatives, and risks were discussed. An informed consent was then obtained. The patient was placed in supine positioning for imaging and for the procedure. Preprocedure ultrasound shows large fluid collection with thick irregular internal septa. Given patient's symptoms abscess cannot be excluded. Order was obtained from oncologist for sampling. The overlying skin was prepped and draped in usual sterile fashion. Lidocaine buffered with bicarbonate was used as anesthetic into the skin and subcutaneous tissue up to area of concern in the left breast. Under ultrasound guidance, a 18-gauge spinal needle was used to drain roughly 50 cc of bloody serous fluid. The patient tolerated the procedure well without any immediate complication. The patient was kept in the radiology department for short stay after the procedure and then discharged home in stable condition. Postprocedure antibiotics ordered by oncologist. IMPRESSION: Successful, uncomplicated ultrasound guided fine-needle aspiration of area of concern in the left breast, full pathology results to follow. Suspect hemorrhage into a seroma. Storm abscess not identified on gross drainage. Pathology Results: Benign BREAST, LEFT, TWO O'CLOCK, ASPIRATE: Virtually acellular specimen consisting of blood and inflammatory cells, non-diagnostic. Recommendation Follow up mammogram of the left breast in 3 months. JOSÉ MIGUEL
--- NOTE | 2018-05-18 07:37 | USB ---
Reason for exam: additional evaluation requested from prior study. History: Patient is postmenopausal and has history of breast cancer at age 46. Malignant MG pre op needle loc LT of the left breast, January 10, 2017. Malignant US biopsy breast VAD LT of the left breast, November 28, 2016. Taking tamoxifen beginning at age 47. Physical Findings: Nurse Summary: redness/inflammation since March 2018, progressive worsening (nurse dw). US Breast LT Left complete breast ultrasound includes all four quadrants, the retroareolar region and axilla. Finding demonstrates a 5.6 x 2.9 x 6.8cm oval, mixed, hypoechoic lesion at 2 o'clock, questionable abscess. Edema throughout breast. These results were verbally communicated with the patient and result sheet given to the patient on 05/17/18. ASSESSMENT: Probably benign, BI-RAD 3 RECOMMENDATION: Aspiration of the left breast.
== END ==
LOC: RADUSWWP 10:16 → EDSTATUS 11:00
PROVIDERS: ATTEND Internal Medicine Hematology & Oncology
DX: N63.20 Unspecified lump in the left breast, unspecified quadrant (principal)
CPT/HCPCS: 76942; 87070; 87075; 87205

== ENCOUNTER → 2018-05-25 | Outpatient (CLI) | payer BC ==
[2018-05-25 11:52] VITALS: BP 131/87; PULSE 118; RESP 13; TEMP 97; BMI 37.1
--- NOTE | 2018-05-25 12:19 | P.GSHP ---
History of Present Illness H&P Date: 05/25/18 Chief Complaint: left breast cancer November 2016 The patient is a 47 year old white female status post left breast lumpectomy January of 2017, SNB; 4 nodes removed, possible microscopic disease; patient was seen at [facility] and had additional tissue removed in July one more node. Additionally one margin had more breast tissue removed. 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 She was able to resume this and completed the radiation treatments in September 2017. She completed her chemo in June 2017. She is presently taking tamoxifen. Recently the patient complained of pain under her left arm. She additionally had swelling in the 12 o'clock position of the left breast. The area was also very red. The patient had an ultrasound performed after which approximately 20 mL of fluid were drained from this area. This was done on [id number]. The fluid was virtually acellular consisting of blood and inflammatory cells and considered nondiagnostic. Initially after the drainage of the fluid the swelling decreased however she continues to have pain in that area and erythema. Patient has been taking Keflex she just finished yesterday. She has not noted any fever or chills. Patient underwent BRCA1 testing and was negative. Bilateral breast mammogram was performed [id number]. No lesion of concern was noted in the right breast. In the left breast there was a high density circumscribed area felt to be consistent with surgical site hematoma/seroma. No other changes of concern were noted. The recommendation is repeat left breast mammogram in 6 months time. Family history: 1.father: prostate Hormonal history: menarche: 12 : 2, 2 children, breast fed: no, age at first: 21 menopause: 45 BCP: 16 years hormones: none Past Surgical History: 1. tonsil 2. sinus 3. gallbladder 4. left breast lumpectomy and axillary node removal Past Medical History: 1. Dermatomyositis Social History: smoke: none alcohol: none drugs: none - Constitutional Constitutional: Denies chills, Denies fever - EENT Eyes: bilateral blurred vision, bilateral pain Ears: deny: decreased hearing, tinnitus Ears, nose, mouth and throat: Denies headache, Denies sore throat - Breasts Breasts: bilateral: as per HPI - Cardiovascular Comment: high heart rate Cardiovascular: Reports shortness of breath, Denies chest pain - Respiratory Respiratory: Denies cough, Denies 7 - Gastrointestinal Gastrointestinal: Reports diarrhea, Denies abdominal pain, Denies nausea, Denies vomiting - Genitourinary (Female) Genitourinary: Denies dysuria, Denies hematuria - Menstruation Menstruation: Reports postmenopausal - Musculoskeletal Comment: dermatomyositis - Integumentary Integumentary: Reports rash, Denies pruritus - Neurological Neurological: Reports numbness, Reports weakness - Psychiatric Psychiatric: Reports anxiety - Endocrine Comment: was on prednisone Endocrine: Reports fatigue, Reports flushing, Reports weight change - Hematologic/Lymphatic Comment: none - Allergic/Immunologic Comment: none Past Medical History Past Medical History: Cancer Additional Past Medical History / Comment(s): left breast cancer had sx and 05-23 completed her 8th and last chemo tx."heartburn during chemo", anxiety. History of Any Multi-Drug Resistant Organisms: None Reported Past Surgical History: Breast Surgery, Cholecystectomy, Tonsillectomy Additional Past Surgical History / Comment(s): Sinus surgery, Breast implants and removal years ago. january 2017 dx w/ lt breast cancer-had lumpectomy,sentinal lymph node bx axillary node dissection. rt upper chest mediport place. then 07/23 had. lumpectomy revision"took more tissue and 1 lymph node" Past Anesthesia/Blood Transfusion Reactions: No Reported Reaction Past Psychological History: Anxiety Additional Psychological History / Comment(s): pt is and her 24 debbie old son lives with her. Smoking Status: Former smoker Past Alcohol Use History: None Reported Additional Past Alcohol Use History / Comment(s): smoked 3-4 cigs for 10 yrs; quit 2010 Past Drug Use History: None Reported - Past Family History Father Family Medical History: Cancer Additional Family Medical History / Comment(s): prostate CA Medications and Allergies Home Medications Medication Instructions Recorded Confirmed Type Venlafaxine HCl [Effexor] 75 mg PO DAILY 01/05/17 05/17/18 History Multivitamins, Thera [Multivitamin 1 tab PO DAILY 02/23/17 05/17/18 History (formulary)] Omeprazole 40 mg PO DAILY #90 capsule. 08/29/17 05/17/18 Rx Metoprolol Tartrate [Lopressor] 12.5 mg PO BID #60 tab 01/24/18 10/11/18 Rx Folic Acid 0.4 tab PO DAILY 02/02/18 05/17/18 History Tamoxifen [Nolvadex] 10 tab PO DAILY 02/02/18 05/17/18 History Methotrexate Sodium [Methotrexate] 12.5 mg PO WEEKLY 05/17/18 05/17/18 History predniSONE 5 mg PO DAILY 05/17/18 05/17/18 History Allergies Allergy/AdvReac Type Severity Reaction Status Date / Time No Known Allergies Allergy Verified 05/17/18 11:28 Surgical - Exam BP: 144/85 Temp: 98 pulse ox: 99% heart rate: 114 BMI 37.1 - General obese - Eyes normal ocular movement - ENT no hearing loss, no congestion - Neck no masses, trachea midline - Respiratory normal respiratory effort, clear to auscultation - Cardiovascular Rhythm: regular Heart Sounds: normal: S1, S2 - Abdomen Abdomen: soft - Integumentary bilateral ankle swelling - Neurologic no disoriented, no combative - Musculoskeletal difficulty with gait - Psychiatric oriented to time, oriented to person, oriented to place, speech is normal, memory intact breast exam: right breast: Multi-positional exam no dominant masses or nodules of concern Right axilla: No adenopathy of concern Left breast: There is swelling in the left chest wall which is somewhat erythematous the entire breast appears to be somewhat swollen and firmer than the right breast, multi-positional exam reveals increased firmness in the lateral aspect where the lumpectomy was performed which would be consistent with scar tissue Left axilla: No adenopathy of concern Results Cytology pathology report reviewed from [id number] Mammogram report reviewed from [id number] Assessment and Plan Assessment: Impression: 1. Status post left breast lumpectomy, axillary node resection, chemotherapy, radiation therapy 2. Recent increased swelling of the left chest wall and breast with erythema 3. Dermatomyositis 4. Steroid dependence 5. Muscle weakness related to his dermatomyositis Plan: 1. I will discuss the case with Dr. Gan the patient does not appear to have recurrent cancer at this time 2. Consider MRI of the left chest wall and breast 3. findings appear to be related to inflamation 4. follow up after the MRI CC: DR. gan, Dr. Leslie
--- NOTE | 2018-05-25 17:50 | P.PN ---
Progress Note - Text Progress Note Date: 05/25/18 The patient's case was discussed with Dr. Gan. He wishes a skin biopsy as well as a biopsy of the area of increased nodularity in the medial aspect of the lumpectomy site in the left breast. This will most likely be done as the core biopsy. The patient understands and this will be scheduled in the near future. At this time he does not think that additional imaging is warranted.
== END ==
LOC: WWCWWP 11:44
PROVIDERS: ATTEND Surgery
DX: Z53.9 Procedure and treatment not carried out, unspecified reason (principal)

== ENCOUNTER → 2018-06-22 | Outpatient (CLI) | payer BC ==
[2018-06-22 13:06] VITALS: BP 119/87; PULSE 110; RESP 18; TEMP 98.1; BMI 34.3
--- NOTE | 2018-06-22 14:28 | P.PCN ---
Date of Procedure: 06/22/18 Preoperative Diagnosis: Left breast lumpectomy for cancer with some thickening at the medial aspect of the lumpectomy incision, and some thickening of the skin in the medial lower aspect of the breast Postoperative Diagnosis: same Procedure(s) Performed: Core biopsy of the lumpectomy site in the medial aspect of the incision, punch biopsy of the skin at the lower inner aspect of the left breast Anesthesia: local Surgeon: Didi Garrett Estimated Blood Loss (ml): 2 Pathology: other (Core biopsy from the medial portion of the lumpectomy site in the lateral aspect of the breast in the upper outer quadrant, punch biopsy of the skin in the lower inner aspect of the right breast) Condition: stable Disposition: same day Indications for Procedure: 47-year-old white female status post lumpectomy with changes in her breast in the lateral upper outer quadrant area related to lumpectomy scar site, and thickening of the skin in the lower medial breast Operative Findings: Dense breast tissue Description of Procedure: The patient was positioned on the table and the upper outer quadrant area of the left breast was prepped using Betadine. 1% lidocaine was used to anesthetize the area of thickening in the medial aspect of the incision of the lumpectomy site in the upper outer quadrant of the left breast. A small puncture wound was made in the skin and an 18-gauge core biopsy needle was inserted. This is spring loaded core biopsy needle. 3 cores were obtained from the area density in it was palpably noted in the left breast. These were prepared and sent for pathology. Surgeons gloves were changed and instruments were changed appropriately and the medial inner lower breast on the left was prepped using Betadine. 1% lidocaine was used to anesthetize the area where punch biopsy was to be obtained. This was secondary to thickened skin at this site. A 3 mm punch was used and a core of tissue was obtained. This was sent to pathology. The patient tolerated the procedure in stable condition. All instrument and sponge counts were correct at the end of the case. The patient had no active bleeding at the end of the case. The patient will follow up in approximately a week and a half for results.
== END ==
LOC: WWCWWP 12:37
PROVIDERS: ATTEND Surgery
DX: D24.2 Benign neoplasm of left breast (principal)
CPT/HCPCS: 88305; 88342

== ENCOUNTER → 2018-07-06 | Outpatient (CLI) | payer BC ==
[2018-07-06 15:59] VITALS: BP 133/97; PULSE 110; RESP 18; TEMP 96.4; BMI 34.3
--- NOTE | 2018-07-06 16:17 | P.PN ---
Subjective Progress Note Date: 07/06/18 Principal diagnosis: Patient is status post punch biopsy of the skin of the left breast and core biopsy of area of nodularity of the left breast pathology results were benign for both. The upper outer quadrant of the left breast revealed benign fibroadipose tissue. The inner lower left breast revealed benign skin with reactive fibroplastic the epidermis negative for adenocarcinoma. The patient at this time states that she is having some discomfort in the more upper outer quadrant area of the left breast and wishes biopsy to be performed at this as well. Physical exam: Mild firmness upper outer quadrant area of the left breast Lungs: Clear Heart: Regular rate and rhythm Puncture site no evidence of infection from core biopsy Punch biopsy of the skin with scab no evidence of infection Impression: 1. Core biopsy negative for cancer 2. Skin punch biopsy negative for cancer 3. Patient with new area of concern in the upper quadrant area of the left breast for which core biopsy will be performed At this time patient has no evidence of recurrent cancer. She will continue follow with us as well as with Dr. Gan from medical oncology and radiation oncology. Cc: Dr. Gan, Dr. Mullins Objective - Vital Signs Vital signs: Vital Signs Temp 96.4 F L 07/06/18 15:49 Pulse 110 H 07/06/18 15:49 Resp 18 07/06/18 15:49 BP 133/97 07/06/18 15:49 Pulse Ox 98 07/06/18 15:49 Intake & Output 07/05/18 07/06/18 07/06/18 18:59 06:59 18:59 Weight 90.718 kg
== END ==
LOC: WWCWWP 15:28
PROVIDERS: ATTEND Surgery
DX: Z53.9 Procedure and treatment not carried out, unspecified reason (principal)

== ENCOUNTER → 2018-07-12 | Outpatient (CLI) | payer BC ==
[2018-07-12 10:33] VITALS: BP 103/71; PULSE 101; RESP 18; TEMP 98.7; BMI 34.4
--- NOTE | 2018-07-12 11:22 | P.PCN ---
Date of Procedure: 07/12/18 Preoperative Diagnosis: firmness left breast UOQ, painful for patient Postoperative Diagnosis: same Procedure(s) Performed: core biopsy of the left breast UOQ Anesthesia: local Surgeon: Didi Garrett Estimated Blood Loss (ml): 0 Pathology: other (breast tissue) Condition: stable Disposition: same day Indications for Procedure: status post lumpectomy and radiation to the left breast, area of firmness and pain Operative Findings: dense tissue Description of Procedure: Area of fullness in the left breast in the UOQ. An 18 gauge spring loaded core biopsy needle used to take two samples. The skin was prepped using Betadine. 1 % lidocaine was used to anesthetize the area of concern. 2 core biopsy samples were obtained. The patient tolerated the procedure in stable condition. The specimen was went to pathology. Plan: follow up in one week CC: Dr. Gan
== END ==
LOC: WWCWWP 10:06
PROVIDERS: ATTEND Surgery
DX: N64.89 Other specified disorders of breast (principal)
CPT/HCPCS: 88305

== ENCOUNTER → 2018-07-20 | Outpatient (CLI) | payer BC ==
[2018-07-20 14:20] VITALS: BP 123/87; PULSE 117; RESP 18; TEMP 98; BMI 34.4
--- NOTE | 2018-07-20 14:31 | P.PN ---
Progress Note - Text Progress Note Date: 07/20/18 Patient is a 47-year-old white female status post core biopsy of area of increased firmness in the left breast in the upper quadrant area. This reveals scanty fragments of fibroadipose tissue and blood vessel wall. Although the sample was nondiagnostic it did not show any atypia. The patient is going to be followed conservatively and will have repeat examination in 3 months time. It is felt the area which was biopsied is consistent with prior lumpectomy and radiation therapy treatment site. She has no complaints related to the biopsy site. She initially underwent breast conservation in January 2017. She had a sentinel node biopsy and axillary dissection. Pathology returned as invasive mammary carcinoma 2.8 cm in greatest dimension, grade 3, with no DCIS. Initially her anterior margin was positive and she underwent reexcision at [facility]. This was negative for malignancy. She did have 10 nodes sampled four of which had macro metastatic disease with one isolated tumor cells. The patient received whole breast and regional meño irradiation. She also received chemotherapy. She did develop muscle weakness, back pain, and fatigue. She was treated for this with prednisone and method flow tracts [address] Cage. Physical examination: Left breast mild ecchymosis biopsy site clean and dry no evidence of any infection no evidence of hematoma Impression/Plan 47-year-old female status post breast conservation surgery with lymph node dissection and before meals based chemotherapy whole breast/regional meño irradiation. The patient with no evidence of recurrent disease at this time. Patient will follow-up in 4 months time. cc: Dr. Mark, Dr. Gan
== END ==
LOC: WWCWWP 14:08
PROVIDERS: ATTEND Surgery
DX: Z53.9 Procedure and treatment not carried out, unspecified reason (principal)

== ENCOUNTER → 2018-08-24 | Outpatient (CLI) | payer BC ==
--- NOTE | 2018-08-28 09:01 | MM ---
Reason for exam: follow-up at short interval from prior study. Last mammogram was performed 7 months ago. History: Patient is postmenopausal and has history of breast cancer at age 46. Benign US breast aspiration single LT of the left breast, May 17, 2018. Malignant MG pre op needle loc LT of the left breast, January 10, 2017. Malignant US biopsy breast VAD LT of the left breast, November 28, 2016. Left breast radiation 2017. Chemotherapy left breast revision. lymph nodes at [facility] in 2016. Dr. Garrett did 3 biopsies in her office in 2017- benign. Taking tamoxifen beginning at age 47. Physical Findings: Nurse did not find any significant physical abnormalities on exam. MG 3D Diag Mammo W/Cad REYNOLD Bilateral CC and MLO view(s) were taken. Prior study comparison: January 15, 2018, bilateral MG 3d diag mammo w/cad REYNOLD. November 28, 2016, left breast MG diagnostic mammo LT wo CAD. The breast tissue is heterogeneously dense. This may lower the sensitivity of mammography. Asymmetric breast tissue left greater than right. No significant new finding when compared with prior studies. These results were verbally communicated with the patient and result sheet given to the patient on 08/24/18. ASSESSMENT: Benign, BI-RAD 2 RECOMMENDATION: Follow-up diagnostic mammogram of both breasts in 6 months.
== END | disposition home or self-care (01) ==
LOC: RADMAMWWP 10:37
PROVIDERS: ATTEND Internal Medicine Hematology & Oncology
DX: Z08 Encounter for follow-up examination after completed treatment for malignant neoplasm (principal); Z85.3 Personal history of malignant neoplasm of breast
CPT/HCPCS: 77062; 77066

== ENCOUNTER → 2018-11-29 | Outpatient (CLI) | payer BC ==
[2018-11-29 10:58] VITALS: BP 129/82; PULSE 98; RESP 20; TEMP 97.1; BMI 33.3
--- NOTE | 2018-11-29 11:22 | P.PN ---
Subjective Progress Note Date: 11/29/18 Principal diagnosis: Loulou is a 48-year-old white female who is status post a left breast lumpectomy and axillary node dissection in January 2017. She underwent chemotherapy and radiation therapy. At that time the tumor was noted to be approximately 2.8 cm in size. At that time approximately 4 lymph nodes were removed on the first was positive, and one had microscopic disease. She subsequently went to [facility] Additional lymph node was removed which was negative for malignancy. The patient about one week ago noted a in the lateral aspect of her left breast. She has had core biopsies of the left breast in June, and July. They were all benign. The patient is not having any recent trauma to her breast. The patient states that the pain is intermittent. The pain is sharp in nature. She is unsure as to what precipitates the pain. Her last bilateral mammogram was performed 08/24/2018. This was benign BIRADS 2 follow-up diagnostic mammogram of both breasts in 6 months was recommended. The patient has a history of dermatomyositis. After chemotherapy she developed severe weakness in her extremities and was hospitalized for 1 week. It took approximately a year before she got her strength back. family history: Negative Hormonal history: Menarche: 12 : 2, 2 children, breast fed: no, first at 21 menopause: now since tamoxifen this started in 2017 Past surgical history: 1. Left breast lumpectomy, sentinel node biopsy, repeat axillary surgery at [facility] 2. Sinus surgery 3. Cholecystectomy 4. Tonsillectomy Past medical history: Negative Review of systems: HEENT: Negative Lungs: Negative Heart: Negative GI: Negative, recent EGD and colonoscopy : Perimenopausal at this time Musculoskeletal: Negative Patient does have a history of dermatomyositis Objective - Vital Signs Vital signs: Vital Signs Temp 97.1 F L 11/29/18 10:54 Pulse 98 11/29/18 10:54 Resp 20 11/29/18 10:54 BP 129/82 11/29/18 10:54 Pulse Ox 100 11/29/18 10:54 Intake & Output 11/28/18 11/29/18 11/29/18 18:59 06:59 18:59 Weight 87.997 kg - Exam BMI 33.3 - Constitutional General appearance: Present: average body habitus - EENT Eyes: Present: EOMI ENT: Present: hearing grossly normal - Neck Neck: Present: normal ROM - Respiratory Respiratory: bilateral: CTA - Cardiovascular Rhythm: regular Heart sounds: normal: S1, S2 - Gastrointestinal General gastrointestinal: Present: soft - Integumentary Integumentary: Present: normal turgor - Musculoskeletal Musculoskeletal: Present: gait normal - Psychiatric Psychiatric: Present: A&O x's 3, appropriate affect, intact judgment & insight - Additional findings Additional findings: breast exam: right breast: Multi-positional exam no dominant masses or nodules of concern, fibrocystic changes Right axilla: No adenopathy of concern Left breast: Skin thickening postradiation changes, thickening at the area of prior lumpectomy core biopsies have been done of this site in the past, pain to palpation in the lateral aspect of the breast Left axilla: No adenopathy of concern radiation changes Assessment and Plan Assessment: Impression: 1. Stage IIB left breast cancer 2. Pain in left breast 3. Radiation/scar changes left breast 4. Dermatomyositis 5. No evidence of metastatic disease 6. At this time no definitive evidence of recurrent cancer Plan: 1. MRI of the breast 2. Bone scan to evaluate the ribs 3. Follow-up after these studies 4. Conservative management of breast pain with nonsteroidal anti-inflammatories 5. Repeat bilateral mammogram in 1 year from August 14 CC: Dr. Leslie
== END | disposition home or self-care (01) ==
LOC: WWCWWP 10:18
PROVIDERS: ATTEND Surgery
DX: Z53.9 Procedure and treatment not carried out, unspecified reason (principal)

== ENCOUNTER → 2018-12-10 | Outpatient (CLI) | payer BC ==
--- NOTE | 2018-12-11 09:14 | NM ---
EXAMINATION TYPE: NM bone scan whole body DATE OF EXAM: 12/10/2018 COMPARISON: 08/26/2017 HISTORY: Breast cancer Delayed whole-body scanning was performed following the injection of 24.1 mCi Tc 99m MDP. Images acq uired 3 hours post injection. FINDINGS: Abnormal uptake involving the maxilla and mandible likely related to periodontal disease. A bnormal uptake involving the feet, knees and shoulders likely post arthritic. Remains slight curvature of the vertebral column of faint uptake throughout the thoracic spine and mi d to lower lumbar spine likely degenerative. Abnormal uptake is seen involving the distal diaphysis o f the right femur which is new. IMPRESSION: 1. There is abnormal uptake involving the distal diaphysis of the right femur for which x-ray correla tion is recommended and appears new from the prior exam.
== END | disposition home or self-care (01) ==
LOC: RADNMMAIN 10:32
PROVIDERS: ATTEND Surgery
DX: R93.7 Abnormal findings on diagnostic imaging of other parts of musculoskeletal system (principal); N64.4 Mastodynia; Z85.3 Personal history of malignant neoplasm of breast; Z92.21 Personal history of antineoplastic chemotherapy; Z92.3 Personal history of irradiation
CPT/HCPCS: 78306; A9503

== ENCOUNTER → 2018-12-28 | Outpatient (CLI) | payer BC ==
--- NOTE | 2018-12-28 11:58 | XR ---
EXAMINATION TYPE: XR femur RT DATE OF EXAM: 12/28/2018 CLINICAL HISTORY: Abnormal bone scan TECHNIQUE: Two views of the right femur are obtained. COMPARISON: Bone scan 12/10/2018 FINDINGS: There is periosteal reaction and cortical thickening at the area of abnormal finding by bon e scan. Vague density also noted on the lateral view. No acute fracture. No dislocation. IMPRESSION: 1. Suggestion of a cortical thickening or periosteal reaction with vague increased density in the dis nicolas diaphysis of the right femur corresponding the bone scan abnormality. MRI suggested to assess for neoplastic process.
== END | disposition home or self-care (01) ==
LOC: RADXRMAIN 11:18
PROVIDERS: ATTEND Surgery
DX: R94.8 Abnormal results of function studies of other organs and systems (principal)

== ENCOUNTER → 2018-12-29 | Outpatient (CLI) | payer BC ==
--- NOTE | 2019-01-01 10:19 | BMR ---
EXAMINATION TYPE: MR breast BILAT wo/w con DATE OF EXAM: 12/29/2018 COMPARISON: Three-D diagnostic mammogram August 24, [address] chest abdomen and pelvis 2017. HISTORY: Breast ca 2017, recent lt breast pain. History of nondiagnostic left breast aspiration Octob er 2017. CONTRAST: Multiplanar, multisequence images of the breasts were acquired utilizing 7.5 mL intravenous Gadavist gadolinium contrast. TECHNIQUE: A series of fat and water weighted images in the long and short axis views of both breasts are obtained in conjunction with dynamic contrast MRI with subtraction technique. Three-dimensional and additional postprocessing imaging is created on independent workstation and reviewed during offi cial interpretation of this study. FINDINGS: Left breast is asymmetrically smaller or shortened in AP diameter versus right breast on MR I images. There is heterogeneously dense fibroglandular tissue throughout both breasts redemonstrated . There is persistent thin-walled fluid collection towards the left axilla of T2 hyperintensity measu ring 3.5 x 2.3 cm axial image 28 series 301 by 3.6 cm coronal image 36, diminished in size from 2017 CT with note made of interval aspiration May 17, 2018. Surrounding surgical clips on CT are noted. Postsurgical seroma suspected. There is persistent distortion anterior to this at site of prior lumpectomy. There is persistent left-sided skin thickening presumed posttreatment change whi ch is present on most recent mammogram. No axillary adenopathy is identified bilaterally. Chest wall is intact bilaterally. Dynamic postcontrast images show mild to moderate background glanular enhancem ent. No pathologic enhancement or suspicious enhancing masses are identified bilaterally. IMPRESSION: No MRI evidence for invasive malignancy in either breast. Posttreatment changes to left b reast redemonstrated. BI-RADS 2 benign findings left breast. BI-RADS 1 negative findings right breast. Recommendation: Manage left-sided pain on clinical basis. Return to routine follow-up, patient is due for annual bilateral diagnostic breast mammogram August 2019 to be back on schedule.
== END | disposition home or self-care (01) ==
LOC: RADMRIMAIN 07:03
PROVIDERS: ATTEND Surgery
DX: Z08 Encounter for follow-up examination after completed treatment for malignant neoplasm (principal); Z85.3 Personal history of malignant neoplasm of breast
CPT/HCPCS: 77049; C8937; A9585

== ENCOUNTER → 2019-01-21 | Outpatient (CLI) | payer BC ==
--- NOTE | 2019-01-21 08:49 | MR ---
MR right femur and thigh without contrast HISTORY: Abnormal bone scan Multiplanar multisequence imaging through the right femur. Correlation to bone scan 12/10/2017, plain film 12/28/2018 Distal metaphysis of the right femur shows increased signal on T2-weighted sequences, mixed intermedi ate and increased signal on T1-weighted sequences within the medullary portion, no endosteal scallopi ng or evident periostitis. There is no cortical destruction or soft tissue mass. Serpiginous low sign al is present within the area of abnormal increased signal. Lesion measures approximately 2.6 x 4.1 x 1.6 cm in size. There is a suggestion of a similar lesion which is smaller in size within the distal metaphyseal left femur. 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
== END | disposition home or self-care (01) ==
LOC: RADMRIMAIN 07:03
PROVIDERS: ATTEND Surgery
DX: R93.7 Abnormal findings on diagnostic imaging of other parts of musculoskeletal system (principal)

== ENCOUNTER → 2019-02-25 | Outpatient (CLI) | payer BC ==
--- NOTE | 2019-02-26 09:06 | MM ---
Reason for exam: additional evaluation requested from prior study. Last mammogram was performed 6 months ago. History: Patient is postmenopausal and has history of breast cancer at age 46. Benign US breast aspiration single LT of the left breast, May 17, 2018. Malignant MG pre op needle loc LT of the left breast, January 10, 2017. Malignant US biopsy breast VAD LT of the left breast, November 28, 2016. Lumpectomy of the left breast, 2016. Chemotherapy, 2017. Radiation therapy of the left breast, 2016. Implants in both breasts, 2014. Taking tamoxifen beginning at age 47. Physical Findings: Nurse did not find any significant physical abnormalities on exam. MG 3D Diag Mammo W/Cad REYNOLD Bilateral CC and MLO view(s) were taken. Prior study comparison: August 24, 2018, bilateral MG 3d diag mammo w/cad REYNOLD. January 15, 2018, bilateral MG 3d diag mammo w/cad REYNOLD. The breast tissue is heterogeneously dense. This may lower the sensitivity of mammography. Post operative changes left breast with extensive skin thickening. No significant new findings when compared with previous films. These results were verbally communicated with the patient and result sheet given to the patient on 02/25/19. ASSESSMENT: Benign, BI-RAD 2 RECOMMENDATION: Follow-up diagnostic mammogram of both breasts in 1 year. Manage patient on a clinical basis.
== END | disposition home or self-care (01) ==
LOC: RADMAMWWP 06:49
PROVIDERS: ATTEND Surgery
DX: Z08 Encounter for follow-up examination after completed treatment for malignant neoplasm (principal); Z85.3 Personal history of malignant neoplasm of breast
CPT/HCPCS: 77062; 77066

== ENCOUNTER → 2019-02-28 | Day surgery (SDC) | payer BC ==
[2019-02-28 11:34] VITALS: RESP 16; BMI 32.4
[2019-02-28 12:54] VITALS: BP 142/94; PULSE 103; TEMP 97.6
--- NOTE | 2019-02-28 15:55 | USB ---
EXAMINATION TYPE: US breast aspiration single LT DATE OF EXAM: 02/28/2019 CLINICAL HISTORY: Recurrent left axillary seroma in this patient with prior treated left breast cance r. PROCEDURE: Following a discussion of potential risks, alternatives and benefits of the procedure, the patient pr ovided verbal and written informed consent for an ultrasound-guided aspiration of a left axillary ser maryann. Preprocedural timeout was performed. The skin was prepped and 10 cc of 1% lidocaine was administered for local anesthesia within the super ficial tissues as well as the deeper tissues along the needle tract. Subsequently an 18-gauge spinal needle biopsy device was advanced into the 3.8 x 1.4 cm fluid collection and 20 cc of serosanguineous thin fluid was aspirated. The patient tolerated the procedure well and was discharged home in good condition with verbal and wr itten discharge instructions. IMPRESSION Ultrasound-guided aspiration of a left axillary recurrent seroma. 20 cc of serosanguineous thin fluid was sent to the laboratory for analysis. Pathology and an addendum are pending.
== END | disposition home or self-care (01) ==
LOC: RADUSWWP 11:00
PROVIDERS: ATTEND Surgery
DX: N64.89 Other specified disorders of breast (principal); Z85.3 Personal history of malignant neoplasm of breast
CPT/HCPCS: 88305; 88173; 76942; 19000; J2001

== ENCOUNTER → 2019-03-07 | Outpatient (CLI) | payer BC ==
[2019-03-07 14:34] VITALS: BP 128/89; PULSE 95; RESP 16; TEMP 97.7; BMI 31.7
--- NOTE | 2019-03-07 15:06 | P.PN ---
Subjective Progress Note Date: 03/07/19 Loulou is a 48-year-old white female who is status post a left breast lumpectomy and axillary node dissection in January 2017. She underwent chemotherapy and radiation therapy. At that time the tumor was noted to be approximately 2.8 cm in size. At that time approximately 4 lymph nodes were removed on the first was positive, and one had microscopic disease. She subsequently went to [facility] Additional lymph node was removed which was negative for malignancy. The patient had an FNA of the left lateral breast and [id number]. This was closely hemorrhagic fluid in did not show any evidence of any cancer. The pain the patient was experiencing prior has decreased in the left breast. The patient had a bilateral mammogram performed on . This revealed postoperative changes in the left breast with extensive skin thickening but no significant new findings. This was a Biomet 2 and recommendation was repeat bilateral mammogram in 1 year. family history: Negative Hormonal history: Menarche: 12 : 2, 2 children, breast fed: no, first at 21 menopause: now since tamoxifen this started in 2017 Past surgical history: 1. Left breast lumpectomy, sentinel node biopsy, repeat axillary surgery at [facility] 2. Sinus surgery 3. Cholecystectomy 4. Tonsillectomy Past medical history: Negative Review of systems: HEENT: Negative Lungs: Negative Heart: Negative GI: Negative, recent EGD and colonoscopy : Perimenopausal at this time Musculoskeletal: Negative Patient does have a history of dermatomyositis Objective - Vital Signs Vital signs: Vital Signs Temp 97.7 F 03/07/19 14:31 Pulse 95 03/07/19 14:31 Resp 16 03/07/19 14:31 BP 128/89 03/07/19 14:31 Pulse Ox 98 03/07/19 14:31 Intake & Output 03/06/19 03/07/19 03/07/19 18:59 06:59 18:59 Weight 83.915 kg - Exam BMI 31.8 - Constitutional General appearance: Present: obese - EENT Eyes: Present: EOMI ENT: Present: hearing grossly normal - Neck Neck: Present: normal ROM - Respiratory Respiratory: bilateral: CTA - Cardiovascular Rhythm: regular Heart sounds: normal: S1, S2 - Gastrointestinal General gastrointestinal: Present: soft - Integumentary Integumentary: Present: normal turgor - Musculoskeletal Musculoskeletal: Present: gait normal - Psychiatric Psychiatric: Present: A&O x's 3, appropriate affect, intact judgment & insight - Additional findings Additional findings: breast exam: Right breast: Multi-positional exam no dominant masses or nodules of concern Right axilla: No adenopathy of concern Left breast: Postoperative changes and radiation changes, no dominant masses or nodules of concern Left axilla: No adenopathy of concern Assessment and Plan Assessment: Impression: 1. No evidence of recurrent cancer left breast 2. Decreased pain left breast 3. Fibrocystic breast changes 4. Asymmetry between right and left breast 5. Dermatomyositis Plan: 1. Patient doing well related to the breast cancer. Repeat bilateral mammogram in 1 year 2. Examination here in 6 months 3. We'll consider breast reduction on the right to correct for asymmetry Cc: Dr. Leslie, Dr. Gan, Dr. Cage
== END | disposition home or self-care (01) ==
LOC: WWCWWP 14:17
PROVIDERS: ATTEND Surgery
DX: Z53.9 Procedure and treatment not carried out, unspecified reason (principal)

== ENCOUNTER → 2019-06-14 | Outpatient (CLI) | payer BC ==
[2019-06-14 09:46] VITALS: BP 119/87; PULSE 107; RESP 18; TEMP 97.8; BMI 31.9
--- NOTE | 2019-06-14 10:33 | P.PN ---
Subjective Progress Note Date: 06/14/19 Principal diagnosis: Survellance Stage III A [id number]- left breast cancer Loulou is a 48-year-old white female who is status post a left breast lumpectomy and axillary node dissection in January 2017. She underwent chemotherapy after her surgery and radiation therapy. The patient has been on tamoxifen since 2017. At that time the tumor was noted to be approximately 2.8 cm in size. At that time approximately 4 lymph nodes were removed on the first was positive, and one had microscopic disease. She subsequently went to [facility] Additional lymph node was removed which was negative for malignancy. The patient had an FNA of the left lateral breast and [id number]. This was hemorrhagic fluid in did not show any evidence of any cancer. The pain the patient was experiencing prior has decreased in the left breast. She has some persistent discomfort in the lateral inferior aspect of the left breast worse with touch. She has not fluid chronically all the time. The pain does not radiate anyplace. The patient has persistent thickening in this area from the surgery and radiation. The patient had a bilateral mammogram performed on . This revealed postoperative changes in the left breast with extensive skin thickening but no significant new findings. This was a Bi RAd 2 and recommendation was repeat bilateral mammogram in 1 year. The patient has been on tamoxifen since 2017. The patient at this time is considering a symmetry procedure. Right breast is considerably larger than the left treated breast. This makes finding appropriate bras and clothes to fit difficult. She is self-conscious even when dressed secondary to the asymmetry which has resulted secondary to the breast cancer treatment. There is discrepancy in the size of the breasts the nipples are at different levels. Patients Bra 36D on the left, on the right breast does not fit well in bra. She also complains of considerable back pain and notching of her shoulders related to the large size and discrepancy in her breast size. family history: Negative Hormonal history: Menarche: 12 : 2, 2 children, breast fed: no, first at 21 menopause: now since tamoxifen this started in 2017 Past surgical history: 1. Left breast lumpectomy, sentinel node biopsy, repeat axillary surgery at [facility] 2. Sinus surgery 3. Cholecystectomy 4. Tonsillectomy Past medical history: Dermatomyositis/patient on methotrexate Review of systems: HEENT: Negative Lungs: Negative Heart: Negative GI: Negative, recent EGD and colonoscopy : menopausal Musculoskeletal: Patient does have a history of dermatomyositis Neurologic: Negative Psychiatric: Anxiety ALLERGIES:none Objective - Vital Signs Vital signs: Vital Signs Temp 97.8 F 06/14/19 09:44 Pulse 107 H 06/14/19 09:44 Resp 18 06/14/19 09:44 BP 119/87 06/14/19 09:44 Pulse Ox 95 06/14/19 09:44 Intake & Output 06/13/19 06/14/19 06/14/19 18:59 06:59 18:59 Weight 84.368 kg - Exam BMI 31.9 - Constitutional General appearance: Present: obese - EENT Eyes: Present: EOMI ENT: Present: hearing grossly normal - Neck Neck: Present: normal ROM - Respiratory Respiratory: bilateral: CTA - Cardiovascular Rhythm: regular Heart sounds: normal: S1, S2 - Gastrointestinal Gastrointestinal Comment(s): no guarding or rebound bowel sounds normal General gastrointestinal: Present: soft - Integumentary Integumentary: Present: normal turgor - Musculoskeletal Musculoskeletal: Present: gait normal - Psychiatric Psychiatric: Present: A&O x's 3, appropriate affect, intact judgment & insight - Additional findings Additional findings: breast exam: right breast: multipositional exam, no dominate masses or nodules of concern right axilla: no adenopathy of concern left breast: post op and radiation changes, no evidence of recurrent cancer, scar well healed Left axilla: No adenopathy of concern Process size 36D on the left Ptosis grade 3 Assessment and Plan Assessment: Impression: 1. Patient status post left breast lumpectomy/radiation therapy/chemot herapy/presently on tamoxifen for stage IIIa left breast cancer in 2017 2. No evidence of recurrent cancer at this time 3. Symptomatic asymmetry of the breast 4. Bilateral shoulder notching 5. Chronic back pain related to asymmetry of the breast 6. Dermatomyositis patient on methotrexate Plan: 1. Discuss case with Dr. Gan pressure the patient is disease free from the cancer 2. 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 Consider procedure 2 results and symmetry of the breast I have discussed the surgical procedure of device. Reduction mammoplasty. I have marked on the patient's breast. The incisions most likely be located so that she understands the operation. Have given her the option of seeing a plastic surgeon which she chooses not to do. We have discussed risks and benef its including bleeding infection reaction to the anesthetic. We discussed the fact that she is at high risk because she is on methotrexate. We've discussed the fact that she could have nipple decreased sensation and/or sloughing. Despite all of these the patient is symptomatic secondary to the discrepancy in size in the back pain in shoulder notching that she wishes to proceed. This will be scheduled in the near future. Time 45 minutes, > 50% discussion of disease and planning CC: Dr. Mullins
== END ==
LOC: WWCWWP 09:33
PROVIDERS: ATTEND Surgery
DX: Z53.9 Procedure and treatment not carried out, unspecified reason (principal)

== ENCOUNTER → 2019-10-10 | Outpatient (CLI) | payer BC ==
[2019-10-10 09:04] VITALS: BP 119/90; PULSE 105; RESP 18; TEMP 98.3
--- NOTE | 2019-10-10 09:37 | P.PN ---
Subjective Progress Note Date: 10/10/19 Principal diagnosis: Stage IIIA [id number]+Her2- left breast cancer Yessenia is a 48-year-old white female who is status post a left breast lumpectomy and axillary node dissection in January 2017. She is 46 years old at the time. She underwent chemotherapy after her surgery and radiation therapy. The patient has been on tamoxifen since 2016. At that time the tumor was noted to be approximately 2.8 cm in size. At that time approximately 4 lymph nodes were removed and the first was positive, and one had microscopic disease. She subsequently went to [facility] Additional lymph node was removed which was negative for malignancy. The patient had an FNA of the left lateral breast and [id number]. This was hemorrhagic fluid in did not show any evidence of any cancer. The patient initially postoperatively experienced pain in the lateral aspect of her left breast. This decreased in intensity however she does state that she still has some aching sensation at the area of the lumpectomy site. This is intermittent in nature. The pain the patient was experiencing prior has decreased in the left breast. She has some persistent discomfort in the lateral inferior aspect of the left breast worse with touch. She did have seroma fluid drained from this site the l ast time was in February 2019. The pain does not radiate anyplace. The patient has persistent thickening in this area from the surgery and radiation. The patient had a bilateral mammogram performed on . This revealed postoperative changes in the left breast with extensive skin thickening but no significant new findings. This was a Bi RAd 2 and recommendation was repeat bilateral mammogram in 1 year. The patient has been on tamoxifen since 2016. The patient at this time is considering a symmetry procedure. Right breast is considerably larger than the left treated breast. This makes finding appropriate bras and clothes to fit difficult. She is self-conscious even when dressed secondary to the asymmetry which has resulted secondary to the breast cancer treatment. There is discrepancy in the size of the breasts the nipples are at different levels. Patients Bra 36D on the left, on the right breast does not fit well in bra. She also complains of considerable back pain and notching of her shoulders related to the large size and discrepancy in her breast size. family history: Negative Hormonal history: Menarche: 12 : 2, 2 children, breast fed: no, first at 21 menopause: now since tamoxifen this started in 2017 Past surgical history: 1. Left breast lumpectomy, sentinel node biopsy, repeat axillary surgery at [facility] 2. Sinus surgery 3. Cholecystectomy 4. Tonsillectomy Past medical history: Dermatomyositis/patient on methotrexate Review of systems: HEENT: Negative, wears glasses Lungs: Negative, bronchitis in August 2019 resolved, not a smoker Heart: Negative, metropolal for rapid heart rate, does not follow with cardiology GI: Negative, recent EGD and colonoscopy no lesions of concern 2018 : menopausal Musculoskeletal: Patient does have a history of dermatomyositis Neurologic: Negative Psychiatric: Anxiety ALLERGIES:none Objective - Vital Signs Vital signs: Vital Signs Temp 98.3 F 10/10/19 08:59 Pulse 105 H 10/10/19 08:59 Resp 18 10/10/19 08:59 BP 119/90 10/10/19 08:59 Pulse Ox 98 10/10/19 08:59 Intake & Output 10/09/19 10/10/19 10/10/19 18:59 06:59 18:59 Weight 83.915 kg - Exam BMI 31.8 - Constitutional General appearance: Present: obese - EENT Eyes: Present: EOMI ENT: Present: hearing grossly normal - Neck Neck: Present: normal ROM - Respiratory Respiratory: bilateral: CTA - Cardiovascular Rhythm: regular Heart sounds: normal: S1, S2 - Gastrointestinal Gastrointestinal Comment(s): no guarding or rebound General gastrointestinal: Present: normal bowel sounds, soft - Integumentary Integumentary: Present: normal turgor - Musculoskeletal Musculoskeletal: Present: gait normal - Psychiatric Psychiatric: Present: A&O x's 3, appropriate affect, intact judgment & insight - Additional findings Additional findings: breast exam: Bra left 36D right larger, uncertain of the size ptosis right grade 3, left 2 inspection: left breast skin changes from radiation, and scar at lumpectomy site Palpation: Right breast: Multi-positional exam no dominant masses or nodules of concern, fibrocystic changes Right axilla: No adenopathy of concern Left breast: Skin changes from radiation/scar upper outer quadrant area no evidence of recurrent cancer, multiple positional exam fibrocystic changes Left axilla: No adenopathy of concern Mild fungal infection under both breast Right breast is approximately one half times larger than the left breast. Assessment and Plan Assessment: Impression: 1. Patient status post left breast lumpectomy and radiation for stage IIIa left breast cancer in 2017, no evidence of recurrent disease 2. Asymmetry of the breast with the right being larger than the left this is resulting in back pain/difficulty finding clothes to fit/shoulder notching/and anxiety for the patient 3. No evidence of any metastatic disease at this time 4. Patient on tamoxifen 5. Dermatomyositis 6. SVT patient on metapranolol Plan: 1. Clearance from Dr. Kin Darnell 2. Symmetry reduction of the right breast/Dr. Lynn 3. Patient with slight rash under both breasts to be started on nystatin to treat any fungal infection 4. Patient is cleared for surgical reduction right breast no evidence of any metastatic disease from an oncologic standpoint CC: Dr. Mullins encounter 25 minutes greater than 50% of time in planning and counselling Time with Patient: Less than 30
== END | disposition home or self-care (01) ==
LOC: WWCWWP 08:50
PROVIDERS: ATTEND Surgery
DX: Z53.9 Procedure and treatment not carried out, unspecified reason (principal)

== ENCOUNTER → 2020-01-03 | Outpatient (CLI) | payer BC | END | disposition home or self-care (01) | LOC: LABWHC1 08:05 | PROVIDERS: ATTEND Plastic Surgery | DX: Z11.59 Encounter for screening for other viral diseases (principal) ==

== ENCOUNTER 2020-01-07 12:56 | Day surgery (SDC) | payer BC ==
[2020-01-06 11:34] VITALS: BMI 31.9
[~2020-01-07 12:56] MED LIST changes: +DEXAMETHASONE SOD PHOSPHATE 10 MG/ML 1 ML VIAL IV ONE; -HYDROmorphone 1 MG/ML 1 ML SYRINGE IVP PRN; +LIDOCAINE 1% (10MG/ML) FOR IV START INTRADERMA PRN; -LIDOCAINE 1% 20 ML VIAL (10MG/ML) FOR IV START INTRADERMA PRN; +ONDANSETRON 4 MG/2 ML VIAL IVP ONE; -ONDANSETRON 4 MG/2 ML VIAL IVP PRN; +Pre Op ABX Message 1 EACH MISC MISCELLANE ONE; +SCOPOLAMINE 1.5MG/72HR PATCH TRANSDERM ONE; -ceFAZolin 2 GM in SODIUM CHLORIDE 0.9% 100 ML IVPB ONE
[2020-01-07] MEDS ORDERED: PROPOFOL 10 MG/ML 20 ML VIAL IV ONE (14:06)
[2020-01-07] MEDS ORDERED: HYDROmorphone (PF) 1 MG/ML ONE (14:06)
[2020-01-07] MEDS ORDERED: ALBUTEROL HFA INHALER INHALATION ONE (14:06)
[2020-01-07] MEDS ORDERED: ePHEDrine SULFATE/0.9% NACL/PF 50 MG/5 ML SYRINGE IV ONE (14:06)
[2020-01-07] MEDS ORDERED: SUCCINYLCHOLINE CHLORIDE 100 MG/5 ML SYR IV ONE (14:06)
[2020-01-07] MEDS ORDERED: LIDOCAINE 1% INJ 10MG/ML (20 ML MDV) ONE (14:06)
[2020-01-07] MEDS ORDERED: fentaNYL (PF) 50 MCG/ML 2 ML AMP ONE (14:06)
[2020-01-07] MEDS ORDERED: MIDAZOLAM 2 MG/2 ML VIAL ONE (14:06)
[2020-01-07] MEDS ORDERED: LACTATED RINGERS 1,000 ML IV ONE ×3 (14:37→17:31)
[2020-01-07 16:52] VITALS: TEMP 97.9
[2020-01-07] MEDS: HYDROmorphone 0.5 MG/0.5 ML SYRINGE IVP PRN ×2 (17:00→17:05)
[2020-01-07] MEDS ORDERED: LABETALOL 5 MG/ML VIAL MDV IVP ONE (17:22)
--- NOTE | 2020-01-07 17:46 | OP ---
OPERATIVE REPORT DATE OF SURGERY: 01/07/2020. SURGEON: Dr. Pramod Jean PREOPERATIVE DIAGNOSES: 1. Acquired asymmetry of breasts. 2. Right breast macromastia and ptosis. 3. Personal history of breast cancer. POSTOPERATIVE DIAGNOSES: 1. Acquired asymmetry of breasts. 2. Right breast macromastia and ptosis. 3. Personal history of breast cancer. OPERATIVE PROCEDURE: Right breast reduction. OPERATIVE INDICATIONS: The patient is a 49-year-old female who has acquired asymmetry of her breasts secondary to treatment of cancer. The patient has undergone partial mastectomy of the left breast with radiation treatments for invasive cancer and, due to post-radiation changes as well as post-surgical changes, has significant asymmetry of the right and left breasts. Her right breast is also large and ptotic. She was referred to my care for breast reconstruction to obtain a more symmetrical result. The patient was counseled about possible surgical procedures and has elected to proceed with right breast reduction. She understands potential risks and complications associated with the surgery, including but not limited to hematoma, seroma, loss of nipple-areolar sensation or loss of nipple-areolar complex as well as wound healing problems. She has requested I perform today's surgery. OPERATIVE PROCEDURE SUMMARY: The patient was seen in the presurgical area, markings made, procedure reviewed, all questions answered. She was transported to the operating room, where she was placed in supine position. Following induction of general tracheal anesthesia, the patient was prepped and draped in the usual fashion. The markings placed preoperatively were now reconfirmed with a marker. The breast was distracted from the chest wall and tourniquet placed around the base. Using a medicine cup, a [place] was then traced around the patient's nipple-areolar complex under tension and a second [place] placed around the first in concentric fashion. The area of tissue in between the two circles was now de-epithelialized using a 10-blade scalpel. All tissue excised today was sent for pathology. At the outer perimeter of the de-epithelialized tissue, cautery was used to complete the incision into breast parenchyma. The nipple-areolar complex was now oriented for later evaluation with one staple at 12 o'clock and two at the 3 o'clock position. The lower transverse and vertical breast reduction incisions were now made as diagrammed preoperatively with 10-blade scalpel dividing skin in full-thickness fashion followed by use of cauterization to maintain hemostasis. Skin and subcutaneous tissue flaps were then elevated off the breast parenchyma with scissor dissection until reaching the planned upper skin reduction incision point. Once this was reached, the dissection was carried in a deeper plane, including skin, subcutaneous tissue and breast parenchyma approximately 1 cm from the skin surface until reaching the patient's chest wall. The central breast gland with the nipple-areolar complex attached was now separate from the skin. The central glandular element was reduced mostly from the lateral aspect using a 10-blade scalpel. Hemostasis was maintained with cautery. Once sufficient reduction was achieved, the skin reduction was completed, excising the skin based on the pattern marked preoperatively using a 10-blade scalpel to make a full- thickness skin incision followed by cauterization. All excised tissue was now weighed and measured 200 grams. Irrigation was performed. Hemostasis was optimal. Temporary closure of the breast reduction was performed by advancing the cephalad medial and lateral triangular flaps to the inferior midline with an inverted interrupted 2-0 Vicryl suture. Temporary closure of the skin was then achieved with ramona. The 2-0 Vicryl suture was removed and replaced with deep dermal 4-0 Monocryl suture, and then the remaining dermal component of the skin incision was closed using inverted interrupted 4-0 Monocryl. The patient was returned to a seated-up position. Nipple- areolar complex was now located for its new position using a 45 mm nipple-areolar template. Once the area was marked, the patient was returned to supine position. The transverse incision closure was completed with subcuticular 3-0 Prolene in a vertical closure completed with 5-0 running Prolene. The circular area marked for the new nipple-areolar complex location was now de-epithelialized following the circular diagram using a 10-blade scalpel. The exposed de-epithelialized [place] was now divided in a cruciate fashion using cauterization, exposing the nipple-areolar complex. Orientation was assured by noting locations ramona that were removed. The nipple- areolar complex appeared viable. The complex was inset, approximating the deep dermis using inverted interrupted 4-0 Monocryl at the 12 o'clock, 3 o'clock, 6 o'clock and 9 o'clock positions and then bisecting each of these positions. The final closure was achieved by approximating superficial dermis and epidermis in a circumareolar fashion with running 5-0 Prolene suture. Surgical field was cleansed with saline, dried, and postoperative bandages were placed using sterile one-inch paper tape over suture repairs followed by Kerlix squares securing paper tape in position with a size 3 mammary support. The patient was then awakened from her anesthetic, extubated and transferred to the recovery room in good condition with stable vital signs. Estimated blood loss was 100 mL. There were no complications. MMODL / IJN: [id number] /
[2020-01-07] MEDS ORDERED: HYDROcodone/APAP 5-325MG 1 EACH TAB PO ONE (18:05)
[2020-01-07] MEDS ORDERED: LABETALOL 5 MG/ML VIAL MDV IV ONE ×2 (18:42→18:57)
[2020-01-07 19:04] VITALS: BP 133/65; PULSE 113; RESP 20
== END 2020-01-07 19:06 | disposition home or self-care (01) ==
LOC: OR 12:56
PROVIDERS: ATTEND Plastic Surgery
DX: N65.1 Disproportion of reconstructed breast (principal); N60.11 Diffuse cystic mastopathy of right breast; Z85.3 Personal history of malignant neoplasm of breast; I10 Essential (primary) hypertension; F41.9 Anxiety disorder, unspecified; E66.9 Obesity, unspecified; K21.9 Gastro-esophageal reflux disease without esophagitis; Z87.891 Personal history of nicotine dependence; Z79.899 Other long term (current) drug therapy; Z68.32 Body mass index [BMI] 32.0-32.9, adult; Z92.21 Personal history of antineoplastic chemotherapy; Z92.3 Personal history of irradiation; Z90.12 Acquired absence of left breast and nipple
CPT/HCPCS: 19318; J2250; J1100; J0690; J2405; J2001; J3010; J1170 ×2; J0330; J2704; 88305

== ENCOUNTER → 2020-07-16 | Outpatient (CLI) | payer BC ==
--- NOTE | 2020-07-16 13:05 | MM ---
Reason for exam: additional evaluation requested from prior study. Last mammogram was performed 1 year and 5 months ago. History: Patient is postmenopausal and has history of breast cancer at age 46. Reconstruction of the right breast, January 2020. Benign US breast aspiration single LT of the left breast, February 28, 2019. Benign US breast aspiration single LT of the left breast, May 17, 2018. Malignant MG pre op needle loc LT of the left breast, January 10, 2017. Malignant US biopsy breast VAD LT of the left breast, November 28, 2016. Lumpectomy of the left breast, 2016. Chemotherapy, 2017. Radiation therapy of the left breast, 2017. Taking tamoxifen beginning at age 47. Physical Findings: Nurse did not find any significant physical abnormalities on exam. MG Diagnostic Mammo w CAD REYNOLD Bilateral CC and MLO view(s) were taken. XCCL view(s) were taken of the right breast. Prior study comparison: February 25, 2019, bilateral MG 3d diag mammo w/cad REYNOLD. August 24, 2018, bilateral MG 3d diag mammo w/cad REYNOLD. The breast tissue is heterogeneously dense. This may lower the sensitivity of mammography. There is no discrete abnormality including area of concern marked by BB. These results were verbally communicated with the patient and result sheet given to the patient on 07/16/20. ASSESSMENT: Incomplete: need additional imaging evaluation, BI-RAD 0 RECOMMENDATION: Ultrasound of the left breast.
--- NOTE | 2020-07-16 13:08 | USB ---
Reason for exam: additional evaluation requested from abnormal screening. History: Patient is postmenopausal and has history of breast cancer at age 46. Reconstruction of the right breast, January 2020. Benign US breast aspiration single LT of the left breast, February 28, 2019. Benign US breast aspiration single LT of the left breast, May 17, 2018. Malignant MG pre op needle loc LT of the left breast, January 10, 2017. Malignant US biopsy breast VAD LT of the left breast, November 28, 2016. Lumpectomy of the left breast, 2016. Chemotherapy, 2017. Radiation therapy of the left breast, 2017. Taking tamoxifen beginning at age 47. US Breast Axilla LT Left breast axilla ultrasound demonstrates a 4.1 x 1.3 x 5.4cm oval, cystic lesion at 2 o'clock, increased in size from previous, not at palpable area. No discrete abnormality at left axillary palpable. These results were verbally communicated with the patient and result sheet given to the patient on 07/16/20. ASSESSMENT: Benign, BI-RAD 2 RECOMMENDATION: Breast MRI of the left breast. Manage patient on a clinical basis. Called Dr. Garrett's office with mammographic findings. MRI first and then patient to call to scheduled follow up appointment. PRELIMINARY REPORT CALLED AND FAXED TO DR. GARRETT ON 07/16/20.
== END | disposition home or self-care (01) ==
LOC: RADMAMWWP 03-02 08:10
PROVIDERS: ATTEND Surgery
DX: N63.20 Unspecified lump in the left breast, unspecified quadrant (principal); Z85.3 Personal history of malignant neoplasm of breast
CPT/HCPCS: 77066

== ENCOUNTER → 2020-08-10 | Outpatient (CLI) | payer BC ==
--- NOTE | 2020-08-10 09:40 | BMR ---
EXAMINATION TYPE: MR breast BILAT wo/w con DATE OF EXAM: 08/10/2020 COMPARISON: Diagnostic mammogram July 16, 2020 BI-RADS 0. Diagnostic left breast and axilla Decem 2019 BI-RADS 2. MRI bilateral breasts December 29, 2018 BI-RADS 2 left breast. BI-RADS 1 right micky ast. HISTORY: Left-sided Breast cancer lumpectomy 2017 and reconstruction on right. Prior implants removed . TECHNIQUE: A series of fat and water weighted images in the long and short axis views of both breasts are obtained in conjunction with dynamic contrast MRI with subtraction technique. The patient was i njected with 8.5 mL intravenous Gadavist gadolinium contrast. Three-dimensional and additional post processing imaging is created on independent workstation and reviewed during official interpretation of this study. FINDINGS: Corresponding to mammogram there is asymmetric slightly diminished size to left breast with left-sided skin thickening. Heterogeneously dense fibroglandular tissue bilaterally is present. T1-w eighted images show no concerning axillary adenopathy. There is artifact from inferior left axillary surgical clips noted. T2 or STIR weighted images show no significant cystic change in either breast. Asymmetric left-sided trabeculations are present. Delayed dynamic postcontrast imaging shows no suspi cious intramammary adenopathy. There is mild to moderate left greater than right background enhanceme nt on dynamic postcontrast images. With regards to the right breast. No suspicious skin thickening is seen. No pathologic enhancement or enhancing mass is noted. The chest wall is intact. Regards to the left breast there is irregular shaped thin walled fluid collection at site of surgery measuring 4.8 x 2.2 cm axial image 307 series 801 by roughly 3.8 cm craniocaudal dimension STIR image 29 presumed postsurgical or treatment seroma corresponding to ultrasound finding. No pathologic enha ncement or enhancing mass is identified. A few more prominent left-sided transversing vessels noted. There is some atelectatic change and/or scarring in the adjacent left anterolateral mid lung. IMPRESSION: No MRI evidence for invasive malignancy in either breast. BI-RADS 1 negative study right breast BI-RADS 2 benign findings left breast Recommendation: Patient due for bilateral breast mammogram July 2021 to be back on annual schedul e.
== END | disposition home or self-care (01) ==
LOC: RADMRIMAIN 07:38
PROVIDERS: ATTEND Surgery
DX: Z08 Encounter for follow-up examination after completed treatment for malignant neoplasm (principal); Z85.3 Personal history of malignant neoplasm of breast
CPT/HCPCS: 77049; C8937; A9585

== ENCOUNTER → 2020-08-21 | Outpatient (CLI) | payer BC ==
[2020-08-21 08:47] VITALS: BP 122/87; PULSE 107; RESP 18; TEMP 98.3
--- NOTE | 2020-08-21 09:09 | P.PN ---
Subjective Progress Note Date: 08/21/20 Principal diagnosis: left breast stage IIIA cancer Stage IIIA [id number]- left breast cancer Yessenia is a 49-year-old white female who is status post a left breast lumpectomy and axillary node dissection in January 2017. She was 46 years old at the time. She underwent chemotherapy after her surgery and radiation therapy. The patient had been on tamoxifen since 2016, was recently changed to anastrozole. At that time the tumor was noted to be approximately 2.8 cm in size. At that time approximately 4 lymph nodes were removed and the first was positive, and one had microscopic disease. She subsequently went to [facility] Additional lymph node was removed which was negative for malignancy. The patient had an FNA of the left lateral breast and [id number]. This was hemorrhagic fluid in did not show any evidence of any cancer. The patient initially postoperatively experienced pain in the lateral aspect of her left breast. This decreased in intensity however she does state that she still has some aching sensation at the area of the lumpectomy site. This is intermittent in nature. The pain the patient was experiencing prior has decreased in the left breast. She had some persistent discomfort in the lateral inferior aspect of the left breast worse with touch and a seroma was drained. The patient had a bilateral mammogram performed on 07-16-20, after this an ultrasound was recommended of the left axillary area this was performed on the same date. This revealed a 4.1 x 5.4 cm oval cystic lesion at 2:00 increased in size from previous no discrete abnormality at the left axillary palpable area. This was felt to be benign BIRADS 2 the breast MRI was recommended. Breast MRI was performed on 1420 this showed no evidence of any cancer in either breast. There was noted to be a fluid collection at the site of surgery in the left breast which was presumed to be postsurgical seroma. No pathologic enhancement was noted.. The patient did undergo a right breast symmetry procedure preformed in early summer 2019. She is very happy with the symmetry procedure being done making it much easier for her to fit into close. The patient is not complaining of any new lumps masses or nodules in either breast. She does not complain of any nipple discharge or skin changes for which she is concerned. She has had genetic testing done and is BRCA1 negative by history. family history: Negative patient left breast cancer Hormonal history: Menarche: 12 : 2, 2 children, breast fed: no, first at 21 menopause: now since tamoxifen this started in 2017, recently changed to anestrazole Past surgical history: 1. Left breast lumpectomy, sentinel node biopsy, repeat axillary surgery at [facility] 2. Sinus surgery 3. Cholecystectomy 4. Tonsillectomy 5. right breast reduction Past medical history: Dermatomyositis/patient on methotrexate and paquinol rapid heart rate treated by DR. Mullins Review of systems: HEENT: Negative, wears glasses Lungs: Negative, bronchitis in August 2019 resolved, not a smoker Heart: Negative, metropolal for rapid heart rate, does not follow with cardiology GI: Negative, recent EGD and colonoscopy no lesions of concern 2018 : menopausal Musculoskeletal: Patient does have a history of dermatomyositis Neurologic: Negative Psychiatric: Anxiety ALLERGIES:none Objective - Vital Signs Vital signs: Vital Signs Temp 98.3 F 08/21/20 08:43 Pulse 107 H 08/21/20 08:43 Resp 18 08/21/20 08:43 BP 122/87 08/21/20 08:43 Pulse Ox 97 08/21/20 08:43 Intake & Output 08/20/20 08/21/20 08/21/20 18:59 06:59 18:59 Weight 84.368 kg - Exam BMI 31.9 - Constitutional General appearance: Present: average body habitus - EENT Eyes: Present: EOMI ENT: Present: hearing grossly normal - Neck Neck: Present: normal ROM - Respiratory Respiratory: bilateral: CTA - Cardiovascular Rhythm: regular Heart sounds: normal: S1, S2 - Gastrointestinal General gastrointestinal: Present: normal bowel sounds, soft - Integumentary Integumentary: Present: normal turgor - Musculoskeletal Musculoskeletal: Present: gait normal - Psychiatric Psychiatric: Present: A&O x's 3, appropriate affect, intact judgment & insight - Additional findings Additional findings: breast exam: BRA: 40D inspection: Well-healed scars right breast from prior reduction mammoplasty, scars left breast from radiation and left breast lumpectomy scars in the upper outer quadrant area Palpation: Right breast: Multi-positional exam fibrocystic changes, no dominant masses or nodules of concern Right axilla: No adenopathy of concern Left breast: Multiple positional exam scars related to prior lumpectomy and radiation therapy, no new discrete masses or nodules of concern there is fullness at the area of the lumpectomy site which is believed to be scar tissue Left axilla: No adenopathy of concern Assessment and Plan Assessment: Impression: 1. Patient status post left breast lumpectomy and radiation therapy as well as chemotherapy and hormonal therapy for stage IIIa left breast cancer 2017 no evidence of recurrence 2. Patient status post right breast reduction mammoplasty no evidence of cancer 3. Recent breast radiographic studies including MRI does not reveal any evidence of cancer 4. Dermatomyositis on methotrexate and plaque were normal 5. Patient recently/from tamoxifen to anastrozole and continues to follow with medical oncology Plan: 1. Continued surveillance repeat examination in 6 months 2. Patient to follow up sooner if any questions or concerns Cc: Dr. Mullins encounter 20 minutes, > 50% of time on planning and counselling
== END | disposition home or self-care (01) ==
LOC: WWCWWP 08:29
PROVIDERS: ATTEND Surgery
DX: Z53.9 Procedure and treatment not carried out, unspecified reason (principal)

== ENCOUNTER → 2020-09-09 | Outpatient (CLI) | payer BC ==
--- NOTE | 2020-09-09 11:58 | BD ---
EXAMINATION TYPE: Axial Bone Density DATE OF EXAM: 09/09/2020 COMPARISON: NONE CLINICAL HISTORY: Height: 5 FT 3 1/2 IN Weight: 192 FRAX RISK QUESTIONS: Alcohol (3 or more units per day): NO Family History (Parent hip fracture): YES Glucocorticoids (More than 3mos): YES (Ex: prednisone, prednisolone, methylprednisolone, dexamethasone, and hydrocortisone). History of Fracture in Adulthood: NO Secondary Osteoporosis: 1. Type 1 Diabetes: NO 2. Hyperthyroidism: NO 3. Menopause before 45: NO 4. Malnutrition: NO 5. Chronic liver disease: NO Rheumatoid Arthritis: NO Current Tobacco Use: NO RISK FACTORS HISTORY OF: Family History of Osteoporosis: NO Active: NO Diet low in dairy products/other sources of calcium: NO Postmenopausal woman: CHEMO INDUCED AGE 46 Lost more than 2 inches in height since high school: NO MEDICATIONS: Additional Medications: HORMONE DAPHNE,METHOTREXATE, EFFEXOR, METOPROLOL, OMEPRAZOLE, PAQUINEL, FOL IC ACID, Additional History: BREAST CANER 2016 CHEMO AND RADIATION LUMPECTOMY LT EXAM MEASUREMENTS: Bone mineral densitometry was performed using the [employer] System. Bone mineral density as measured about the Lumbar spine is: ----- L1-L4(G/cm2): 1.346 T Score Values are as follows: ----- L2: 1.2 ----- L3: 1.8 ----- L4: 1.1 ----- L1-L4: 1.4 BASELINE Bone mineral density about the R hip (g/cm2): 0.977 Bone mineral density about the L hip (g/cm2): 1.036 T Score values are as follows: -----R Neck: -0.4 -----L Neck: 0.0 -----R Total: 0.0 -----L Total: 0.6 BASELINE IMPRESSION: Normal (Values between +1 and -1 indicate normal bone mass). Consider repeating this study in 5 year s or sooner if there is some new clinical indication. NOTE: T-SCORE=SD OF THE YOUNG ADULT MEAN.
== END | disposition home or self-care (01) ==
LOC: RADBDWWP 08:52
PROVIDERS: ATTEND Internal Medicine Hematology & Oncology
DX: C50.412 Malignant neoplasm of upper-outer quadrant of left female breast (principal); Z79.890 Hormone replacement therapy
CPT/HCPCS: 77080

== ENCOUNTER → 2021-02-18 | Outpatient (CLI) | payer BC ==
[2021-02-18 10:51] VITALS: PULSE 85; RESP 14; TEMP 98.4
--- NOTE | 2021-02-18 11:01 | P.PN ---
Subjective Progress Note Date: 02/18/21 Principal diagnosis: Stage IIIA [id number]+Her2- left breast cancer Stage IIIA [id number]+Her2- left breast cancer Yessenia is a 50-year-old white female who is status post a left breast lumpectomy and axillary node dissection in January 2017. She was 46 years old at the time. She underwent chemotherapy after her surgery and radiation therapy. The patient was initially treated with tamoxifen but the shear was changed to anastrozole. At initial surgery without tumor was noted to be approximately 2.8 cm in size. At that time approximately 4 lymph nodes were removed and the first was positive, and one had microscopic disease. She subsequently went to [facility] Additional lymph node was removed which was negative for malignancy. The patient had an FNA of the left lateral breast and [id number]. This was hemorrhagic fluid in did not show any evidence of any cancer. The patient initially postoperatively experienced pain in the lateral aspect of her left breast. This decreased in intensity however she does state that she still has some aching sensation at the area of the lumpectomy site. This is intermittent in nature. The pain the patient was experiencing prior has decreased in the left breast. She has some persistent discomfort in the lateral inferior aspect of the left breast worse with touch. She did have seroma fluid drained from this site the last time was in February 2019. The pain does not radiate anyplace. The patien t has persistent thickening in this area from the surgery and radiation. The patient had a bilateral mammogram performed on . This revealed postoperative changes in the left breast with extensive skin thickening but no significant new findings. This was a Bi RAd 2 and recommendation was repeat bilateral mammogram in 1 year. She underwent a bilateral breast MRI on 1420. This was BIRADS 1 negative study right breast BIRADS 2 benign findings left breast Recommendation was for bilateral mammogram in July 2021 The patient had a symmetry procedure done 1 year ago. The patient had genetic testing done which was negative. She is not complaining of any masses or nodules in either breast. Note reviewed from DR. Gan 10-19-20 family history: Negative Hormonal history: Menarche: 12 : 2, 2 children, breast fed: no, first at 21 menopause: now since tamoxifen this started in 2017 Past surgical history: 1. Left breast lumpectomy, sentinel node biopsy, repeat axillary surgery at [facility] 2. Sinus surgery 3. Cholecystectomy 4. Tonsillectomy 5. Reduction mammoplasty left breast Past medical history: Dermatomyositis/patient on methotrexate hypokinesis Tachycardia Review of systems: HEENT: Negative, wears glasses Lungs: Negative, bronchitis in August 2019 resolved, not a smoker Heart: Negative, metropolal for rapid heart rate, does not follow with cardiology GI: Negative, recent EGD and colonoscopy no lesions of concern 2018 : menopausal Musculoskeletal: Patient does have a history of dermatomyositis Neurologic: Negative Psychiatric: Anxiety ALLERGIES:none Objective - Constitutional General appearance: Present: cooperative - EENT Eyes: Present: EOMI ENT: Present: hearing grossly normal - Neck Neck: Present: normal ROM - Respiratory Respiratory: bilateral: CTA - Cardiovascular Heart sounds: normal: S1, S2 - Gastrointestinal General gastrointestinal: Present: soft - Integumentary Integumentary: Present: normal turgor - Musculoskeletal Musculoskeletal: Present: gait normal - Psychiatric Psychiatric: Present: A&O x's 3, appropriate affect, intact judgment & insight - Additional findings Additional findings: Breast exam: BRA: 38D inspection: Postop changes left breast and right breast Palpation: Right breast: Well-healed scar from prior surgery no dominant masses or nodules of concern Right axilla: No adenopathy of concern Left breast: Multi-positional exam postop changes with scarring and radiation changes in the upper outer quadrant area no new dominant masses or nodules of concern Left axilla: No adenopathy of concern Assessment and Plan Assessment: Impression: 1. No evidence of recurrent left breast cancer 2. Patient presently on anastrozole 3. Postsurgical and radiation changes left breast 4. Fibrocystic breast changes right breast Plan: 1. Anastrozole as per medical oncology 2. Repeat bilateral mammogram July 2021 with physician exam at that time 3. Follow up sooner if any questions or concerns CC: Dr. Smith, Dr. Mullins
== END ==
LOC: WWCWWP 10:38
PROVIDERS: ATTEND Surgery
DX: N60.11 Diffuse cystic mastopathy of right breast (principal); Z79.811 Long term (current) use of aromatase inhibitors; Z87.891 Personal history of nicotine dependence

== ENCOUNTER → 2021-08-19 | Outpatient (CLI) | payer BC ==
--- NOTE | 2021-08-19 13:29 | MM ---
Reason for exam: additional evaluation requested from prior study. Last mammogram was performed 1 year and 1 month ago. History: Patient is postmenopausal and has history of breast cancer at age 46. Reconstruction of the right breast, January 2020. Benign US breast aspiration single LT of the left breast, February 28, 2019. Benign US breast aspiration single LT of the left breast, May 17, 2018. Malignant MG pre op needle loc LT of the left breast, January 10, 2017. Malignant US biopsy breast VAD LT of the left breast, November 28, 2016. Lumpectomy of the left breast, 2016. Chemotherapy, 2017. Radiation therapy of the left breast, 2017. Taking tamoxifen beginning at age 47. Physical Findings: Nurse did not find any significant physical abnormalities on exam. MG 3D Diag Mammo W/Cad REYNOLD Bilateral CC and MLO view(s) were taken. XCCL view(s) were taken of the left breast. Prior study comparison: July 16, 2020, bilateral MG diagnostic mammo w CAD REYNOLD. February 25, 2019, bilateral MG 3d diag mammo w/cad REYNOLD. Densities on right CC view disperse on rolled view. Post surgical and post therapy change left breast. Stable few benign course calcifications posteriorly. No significant new findings when compared with previous films. These results were verbally communicated with the patient and result sheet given to the patient on 08/19/21. ASSESSMENT: Benign, BI-RAD 2 RECOMMENDATION: Follow-up diagnostic mammogram of both breasts in 1 year.
== END | disposition home or self-care (01) ==
LOC: RADMAMWWP 10:57
PROVIDERS: ATTEND Surgery
DX: R92.8 Other abnormal and inconclusive findings on diagnostic imaging of breast (principal); Z85.3 Personal history of malignant neoplasm of breast
CPT/HCPCS: 77062; 77066

== ENCOUNTER → 2021-09-02 | Outpatient (CLI) | payer BC ==
[2021-09-02 15:24] VITALS: BP 131/85; PULSE 94; RESP 16; TEMP 98
--- NOTE | 2021-09-02 15:46 | P.PN ---
Subjective Progress Note Date: 09/02/21 Principal diagnosis: stage IIIA left breast cancer Stage IIIA [id number]- left breast cancer Stage IIIA [id number]- left breast cancer Yessenia is a 51-year-old white female who is status post a left breast lumpectomy and axillary node dissection in January 2017. She was 46 years old at the time. She underwent chemotherapy after her surgery and radiation therapy. She started chemotherapy on 8116 which was 4 cycles dose dense before meals, and 4 cycles dose dense Taxol completed E [place] on [id number]. She started radiation therapy on 1317. The patient was initially treated with tamoxifen but this was changed to anastrozole. At initial surgery tumor was noted to be approximately 2.8 cm in size. At that time approximately 4 lymph nodes were removed and the first was positive, and one had microscopic disease. She subsequently went to [facility] Additional lymph nodes were removed which were negative for malignancy. The patient had an FNA of the left lateral breast on . This was hemorrhagic fluid it did not show any evidence of any cancer. The patient initially postoperatively experienced pain in the lateral aspect of her left breast. This decreased in intensity however she does state that she still has some aching sensation at the area of the lumpectomy site. This is intermittent in nature. The pain the patient was experiencing prior has decreased in the left breast. She has some persistent discomfort in the lateral inferior aspect of the left breast worse with touch. She did have seroma fluid drained from this site the last time was in February 2019. The pain does not radiate anyplace. The p atient has persistent thickening in this area from the surgery and radiation. The patient had a bilateral mammogram performed on . This revealed postoperative changes in the left breast with extensive skin thickening but no significant new findings. This was a Bi RAd 2 and recommendation was repeat bilateral mammogram in 1 year. She underwent a bilateral breast MRI on 1420. This was BIRADS 1 negative study right breast BIRADS 2 benign findings left breast Recommendation was for bilateral mammogram in July 2021. She had a bilateral mammogram performed on to the draft copy revealed this to be benign BIRADS 2. The patient had a symmetry procedure done 2 years ago. The patient had genetic testing done which was negative. She is not complaining of any masses or nodules in either breast. She is not complaining of pain in her left breast, she still has occasional twinges of discomfort in the upper outer quadrant area. She saw a pulmonary DR. Dr. Schneider in April for SOB, which us felt to be related to the treatment for the cancer, but no new treatment recommended. Note reviewed from DR. Gan 08-24-21. family history: Negative Hormonal history: Menarche: 12 : 2, 2 children, breast fed: no, first at 21 menopause: now since tamoxifen this started in 2017 Past surgical history: 1. Left breast lumpectomy, sentinel node biopsy, repeat axillary surgery at [facility] 2. Sinus surgery 3. Cholecystectomy 4. Tonsillectomy 5. Reduction mammoplasty left breast Past medical history: Dermatomyositis/patient on methotrexate hypokinesis Tachycardia Review of systems: HEENT: Negative, wears glasses Lungs: Negative, bronchitis in August 2019 resolved, not a smoker Heart: Negative, metropolal for rapid heart rate, does not follow with cardiology GI: Negative, recent EGD and colonoscopy no lesions of concern 2018 : menopausal Musculoskeletal: Patient does have a history of dermatomyositis Neurologic: Negative Psychiatric: Anxiety ALLERGIES:none Objective - Vital Signs Vital signs: Vital Signs Temp 98.0 F 09/02/21 15:13 Pulse 94 09/02/21 15:13 Resp 16 09/02/21 15:13 BP 131/85 09/02/21 15:13 Pulse Ox Intake & Output 09/01/21 09/02/21 09/02/21 18:59 06:59 18:59 Weight 90.718 kg - Exam BMI 34.3 - Constitutional General appearance: Present: cooperative - EENT Eyes: Present: EOMI ENT: Present: hearing grossly normal - Neck Neck: Present: normal ROM - Respiratory Respiratory: bilateral: CTA - Cardiovascular Rhythm: regular Heart sounds: normal: S1, S2 - Integumentary Integumentary Comment(s): fungal infection under left breast - Musculoskeletal Musculoskeletal: Present: gait normal - Psychiatric Psychiatric: Present: A&O x's 3, appropriate affect, intact judgment & insight - Additional findings Additional findings: Breast Exam: BRA: 40D inspection: Patient status post reduction mammoplasty of the right breast, grade 1 ptosis, left breast postradiation and surgical changes Palpation: Right breast: Multi-positional exam fibrocystic changes no dominant masses or nodules of concern Right axilla: No adenopathy of concern Left breast: Multi-positional exam post radiation and surgical changes no dominant new masses or nodules of concern, fungal infection under the left breast Left axilla: No adenopathy of concern Assessment and Plan Assessment: Impression: Dermatomyositis/patient on methotrexate hypokinesis Tachycardia (takes metropolol, and lisonipril) Stage IIIa left breast invasive ductal carcinoma, patient treated with lumpectomy, chemotherapy, and radiation therapy, no evidence of any disease at this time Plan: 1. follow with cardiology 2. follow with pulmonary 3. follow with medical oncology 4. follow here 6 months CC: DR. Mullins
== END ==
LOC: WWCWWP 15:02
PROVIDERS: ATTEND Surgery
DX: M33.90 Dermatopolymyositis, unspecified, organ involvement unspecified (principal); I51.9 Heart disease, unspecified; R00.0 Tachycardia, unspecified; Z79.899 Other long term (current) drug therapy; Z85.3 Personal history of malignant neoplasm of breast; Z98.890 Other specified postprocedural states; Z92.3 Personal history of irradiation; Z92.21 Personal history of antineoplastic chemotherapy; Z87.891 Personal history of nicotine dependence

== ENCOUNTER → 2023-10-20 | Outpatient (CLI) | payer OTHER ==
--- NOTE | 2023-10-20 11:54 | P.PN ---
Subjective Progress Note Date: 10/20/23 Principal diagnosis: stage IIIA left breast IDC 2017, [id number]+Her2- 10-20-23 Principal diagnosis: stage IIIA left breast invasive ductal cancer 2016 Stage IIIA [id number]+Her2- left breast cancer 09-15-22 Yessenia is a 52-year-old white female who is status post a left breast lumpectomy and axillary node dissection in January 2017. She was 46 years old at the time. She underwent chemotherapy after her surgery and radiation therapy. She started chemotherapy on 8116 which was 4 cycles dose dense AC, and 4 cycles dose dense Taxol completed on [id number]. She started radiation therapy on 1317. The patient was initially treated with tamoxifen but this was changed to anastrozole. At initial surgery tumor was noted to be approximately 2.8 cm in size. At that time 4 lymph nodes were removed and the first was positive, and one had microscopic disease. She subsequently went to [facility] Additional lymph nodes were removed which were negative for malignancy. The patient had an FNA of the left lateral breast on . This was hemorrhagic fluid it did not show any evidence of any cancer. The patient initially postoperatively experienced pain in the lateral aspect of her left breast. The pain the patient was experiencing prior has decreased in the left breast. She has some persistent discomfort in the lateral inferior aspect of the left breast worse with touch. She did have seroma fluid drained from this site the last time was in February 2019. The pain does not radiate anyplace. The patient has persistent thickening in this area from the surgery and radiation. The patient had a bilateral mammogram performed on 09-12-22; this was BIRAD 2. This revealed left-sided postoperative changes of lumpectomy and radiation. Additionally on the right side changes related to reduction mammoplasty. No suspicious lesions were identified. This was a Bi RAd 2 and recommendation was repeat bilateral mammogram in 1 year. She underwent a bilateral breast MRI on 1420. This was BIRADS 1 negative study right breast BIRADS 2 benign findings left breast. The patient had a symmetry procedure done. The patient had genetic testing done which was negative. She is not complaining of any masses or nodules in either breast. She is not complaining of pain in her left breast, she still has occasional twinges of discomfort in the upper outer quadrant area. She saw a pulmonary DR. Dr. Schneider in April 2022 for SOB, which us felt to be related to the treatment for the cancer, but no new treatment recommended. 10-20-23 Yessenia is a 53 year old female treated for a IIIA left breast IDC in 2016. She had a lumpectomy (2.8cm) margins (-) and 4 SNB ( 2 nodes +)January 2017. She had additional nodes removed at [facility] all (-) for cancer. Left breast has improved. She is not complaining of any new lumps masses or nodules of concern in either breast. She completed chemotherapy and radiation therapy. Note reviewed from DR. Gan 09-19-22 patient will continue annestrazole although > 5 years from diagnosis she is tolerating this without difficulty Bilateral mammogram 09-18-23 [facility] 2 family history: Negative Hormonal history: Menarche: 12 : 2, 2 children, breast fed: no, first at 21 menopause: now since tamoxifen this started in 2016 Past surgical history: 1. Left breast lumpectomy, sentinel node biopsy, repeat axillary surgery at [facility] 2. Sinus surgery 3. Cholecystectomy 4. Tonsillectomy 5. Reduction mammoplasty left breast 6. left ankle surgery Past medical history: Dermatomyositis/patient on methotrexate hypokinesis Tachycardia Review of systems: HEENT: Negative, wears glasses Lungs: Negative, bronchitis in August 2019 resolved, not a smoker Heart: Negative, metropolal for rapid heart rate, does not follow with cardiology GI: Negative, recent EGD and colonoscopy no lesions of concern 2018 : menopausal Musculoskeletal: Patient does have a history of dermatomyositis Neurologic: Negative Psychiatric: Anxiety ALLERGIES:none Objective - Constitutional General appearance: Present: cooperative - EENT Eyes: Present: EOMI ENT: Present: hearing grossly normal - Neck Neck: Present: normal ROM - Respiratory Respiratory: bilateral: CTA - Cardiovascular Heart sounds: normal: S1, S2 - Integumentary Integumentary: Present: normal turgor - Musculoskeletal Musculoskeletal: Present: gait normal - Psychiatric Psychiatric: Present: A&O x's 3, appropriate affect, intact judgment & insight - Additional findings Additional findings: Breast Exam: BRA: 40D Inspection: Postsurgical and radiation changes left breast, right breast status post reduction Palpation: Right breast: Multi positional exam fibrocystic changes no dominant masses or nodules of concern Right axilla: No adenopathy of concern Left breast: Well-healed scar and radiation changes upper outer quadrant area with some tethering to the chest wall at that site this is not any change No dominant masses or nodules of concern Left axilla: No adenopathy of concern Assessment and Plan Assessment: Impression: Patient doing well status post left breast lumpectomy and axillary node resection 2016 for stage IIIa left breast invasive ductal carcinoma Patient completed radiation therapy Patient completed chemotherapy Patient is presently on anastrozole Plan: Continue to follow with medical oncology/she is going to continue the anastrozole, she has had a conversation with medical oncology that it is over 5 years but she would like to continue it Follow-up here in 1 year Bilateral mammogram on 09-18-2023 benign BI-RADS 2 repeat in 1 year Follow-up sooner any questions or concerns CC: Dr. Romero
[2023-10-20 11:55] VITALS: BP 112/77; PULSE 92; RESP 18; TEMP 98.2
== END ==
LOC: WWCWWP 10:48
PROVIDERS: ATTEND Surgery
DX: C50.912 Malignant neoplasm of unspecified site of left female breast (principal); Z98.890 Other specified postprocedural states; Z92.3 Personal history of irradiation; Z92.21 Personal history of antineoplastic chemotherapy; Z17.0 Estrogen receptor positive status [ER+]

== ENCOUNTER → 2024-10-03 | Outpatient (CLI) | payer OTHER ==
--- NOTE | 2024-10-03 10:02 | P.PN ---
Subjective Progress Note Date: 10/03/24 Principal diagnosis: stage IIIA left breast IDC 2017, [id number]+Her2- 10-03-24 Principal diagnosis: stage IIIA left breast IDC 2017, [id number]+Her2- Principal diagnosis: stage IIIA left breast invasive ductal cancer 2016 Stage IIIA [id number]+Her2- left breast cancer 09-15-22 Yessenia is a 52-year-old white female who is status post a left breast lumpectomy and axillary node dissection in January 2017. She was 46 years old at the time. She underwent chemotherapy after her surgery and radiation therapy. She started chemotherapy on 8116 which was 4 cycles dose dense AC, and 4 cycles dose dense Taxol completed on [id number]. She started radiation therapy on 1317. The patient was initially treated with tamoxifen but this was changed to anastrozole. At initial surgery tumor was noted to be approximately 2.8 cm in size. At that time 4 lymph nodes were removed and the first was positive, and one had microscopic disease. She subsequently went to [facility] Additional lymph nodes were removed which were negative for malignancy. The patient had an FNA of the left lateral breast on . This was hemorrhagic fluid it did not show any evidence of any cancer. The patient initi ally postoperatively experienced pain in the lateral aspect of her left breast. The pain the patient was experiencing prior has decreased in the left breast. She has some persistent discomfort in the lateral inferior aspect of the left breast worse with touch. She did have seroma fluid drained from this site the last time was in February 2019. The pain does not radiate anyplace. The patien t has persistent thickening in this area from the surgery and radiation. The patient had a bilateral mammogram performed on 09-12-22; this was BIRAD 2. This revealed left-sided postoperative changes of lumpectomy and radiation. Additionally on the right side changes related to reduction mammoplasty. No suspicious lesions were identified. This was a Bi RAd 2 and recommendation was repeat bilateral mammogram in 1 year. She underwent a bilateral breast MRI on 1420. This was BIRADS 1 negative study right breast BIRADS 2 benign findings left breast. The patient had a symmetry procedure done. The patient had genetic testing done which was negative. She is not complaining of any masses or nodules in either breast. She is not complaining of pain in her left breast, she still has occasional twinges of discomfort in the upper outer quadrant area. She saw a pulmonary DR. Dr. Schneider in April 2022 for SOB, which us felt to be related to the treatment for the cancer, but no new treatment recommended. 10-20-23 Yessenia is a 53 year old female treated for a IIIA left breast IDC in 2016. She had a lumpectomy (2.8cm) margins (-) and 4 SNB ( 2 nodes +)January 2017. She had additional nodes removed at [facility] all (-) for cancer. Left breast has improved. She is not complaining of any new lumps masses or nodules of concern in either breast. She completed chemotherapy and radiation therapy. Note reviewed from DR. Gan 09-19-22 patient will continue annestrazole although > 5 years from diagnosis she is tolerating this without difficulty Bilateral mammogram 09-18-23 [facility] BIRAD 2 10-03-24 Yessenia is a 54 year old female treated for a IIIA left breast IDC in 2016. She had a lumpectomy (2.8cm) margins (-) and 4 SNB ( 2 nodes +)January 2017. She had additional nodes removed at [facility] all (-) for cancer. Left breast has improved. She is not complaining of any new lumps masses or nodules of concern in either breast. She completed chemotherapy and radiation therapy. 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 Gan 10-24-23 patient will continue annestrazole although > 5 years from diagnosis she is tolerating this without difficulty, bone density to be ordered Bilateral mammogram 09-26-24 [facility] BIRAD 0, additional views right breast recommended family history: Negative Hormonal history: Menarche: 12 : 2, 2 children, breast fed: no, first at 21 menopause: now since tamoxifen this started in 2017 Past surgical history: 1. Left breast lumpectomy, sentinel node biopsy, repeat axillary surgery at [facility] 2. Sinus surgery 3. Cholecystectomy 4. Tonsillectomy 5. Reduction mammoplasty left breast 6. left ankle surgery Past medical history: Dermatomyositis/patient on methotrexate hypokinesis Tachycardia Review of systems: HEENT: Negative, wears glasses Lungs: Negative, bronchitis in August 2019 resolved, not a smoker Heart: Negative, metropolal for rapid heart rate, does not follow with cardiology GI: Negative, recent EGD and colonoscopy no lesions of concern 2018 : menopausal Musculoskeletal: Patient does have a history of dermatomyositis Neurologic: Negative Psychiatric: Anxiety ALLERGIES:none Objective - Constitutional General appearance: Present: cooperative - EENT Eyes: Present: EOMI ENT: Present: hearing grossly normal - Neck Neck: Present: normal ROM - Respiratory Respiratory: bilateral: CTA - Cardiovascular Rhythm: regular Heart sounds: normal: S1, S2 - Integumentary Integumentary: Present: normal turgor - Musculoskeletal Musculoskeletal: Present: gait normal - Psychiatric Psychiatric: Present: A&O x's 3, appropriate affect, intact judgment & insight - Additional findings Additional findings: Breast Exam: BRA: 40D Inspection: Postsurgical and radiation changes left breast, right breast status post reduction Palpation: Right breast: Multi positional exam fibrocystic changes no dominant masses or nodules of concern Right axilla: No adenopathy of concern Left breast: Well-healed scar and radiation changes upper outer quadrant area with some tethering to the chest wall at that site this is not any change No dominant masses or nodules of concern Left axilla: No adenopathy of concern Assessment and Plan Assessment: Impression: Patient doing well status post left breast lumpectomy and axillary node resection 2017 for stage IIIa left breast invasive ductal carcinoma Patient completed radiation therapy Patient completed chemotherapy Patient is presently on anastrozole Bilateral mammogram from 09 26 24 BI-RADS 0 compression views of the right breast recommended Plan: Continue to follow with medical oncology/she is going to continue the anastrozole, she has had a conversation with medical oncology that it is over 5 years but she would like to continue it Follow-up here after compression views of the right breast Compression views of right breast secondary to questionable nodularity on mammogram from 09 26 24, she has to have the procedure done at [facility] secondary to her insurance and have requested that the films be sent here afterwards and she follow-up here so we can follow this. Stopping methotrexate within a month Follow-up sooner any questions or concerns CC: Dr. Romero
[2024-10-03 10:07] VITALS: BP 104/72; PULSE 95; RESP 16; TEMP 98
== END ==
LOC: WWCWWP 09:35
PROVIDERS: ATTEND Surgery
DX: C50.912 Malignant neoplasm of unspecified site of left female breast (principal); Z92.3 Personal history of irradiation; Z92.21 Personal history of antineoplastic chemotherapy; Z90.12 Acquired absence of left breast and nipple; Z79.811 Long term (current) use of aromatase inhibitors; Z87.891 Personal history of nicotine dependence